=== PATIENT | female | born 2000 | race Caucasian/White ===

== ENCOUNTER 2024-06-24 07:00 | Inpatient (IN) | payer OTHER, SELFPAY ==
[2024-06-24] VITALS (18 sets, daily range): BP systolic 92–124; BP diastolic 54–81; PULSE 74–98; RESP 16; TEMP 36.1–37.2; O2SAT 95–99; BMI 37.4
--- OUTSIDE RECORDS SUMMARY | 2024-06-24 07:13 | XMS RPT_ITS | CCD ---
Author Organization [facility] Care Team Providers Care Operations And Maintenance Manager Name Role Phone PHILLIPS, IRIS K Unavailable Unavailable REFERRED, SELF Unavailable Unavailable PHILLIPS, IRIS K Unavailable Unavailable PHILLIPS, IRIS K Unavailable Unavailable REFERRED, SELF Unavailable Unavailable PHILLIPS, IRIS K Unavailable Unavailable RAEDY, MAYA Unavailable Unavailable RAEDY, MAYA Unavailable Unavailable UNKNOWN, PROVIDER Unavailable Unavailable SHAWN, HARLAN M Unavailable Unavailable RAEDY, MAYA F Unavailable Unavailable SELF, SELF Unavailable Unavailable Shawn, Harlan M Unavailable Unavailable Luecht, Supa Unavailable Unavailable Furness, Krupa Unavailable Unavailable Furness, Krupa T Unavailable Unavailable ShawnHuana M Unavailable Unavailable Furness, Krupa Unavailable Unavailable Shawn, Harlan M Unavailable Unavailable Amanuel, Rochelle Unavailable Unavailable [place], Guillermo Unavailable Unavailable SalvatoreGuillermo doll R Unavailable Unavailable Furness, Krupa T Unavailable [phone] Unavailable Unavailable [place], Dr. Krupa Godinez Primary Care Un available Lee, Dr. Keren Graham Attending Unav ailable Lee, Dr. Keren Graham Referring Unav ailable MD FLORIDA DICKINSON Referring Unavail able Furness, Dr. Krupa Godinez Primary Care Un available MD FLORIDA DICKINSON Attending Unavail able Furness, Dr. Krupa Godinez Primary Care Un available [place], Dr. Malena Thomas Attending Unavailabl e Tristen, Dr. Malena Thomas Referring Unavailabl e Furness, Dr. Krupa Godinez Primary Care Un available Tristen, Dr. Malena Thomas Attending Unavailabl e [place], Dr. Malena Thomas Referring Unavailabl e Furness, Dr. Krupa Godinez Primary Care Un available Tristen, Dr. Malena Thomas Attending Unavailabl e [place], Dr. Malena Thomas Referring Unavailabl e Furness, Dr. Krupa Godinez Primary Care Un available [place], Dr. Malena Thomas Referring Unavailabl e [place], Dr. Malena Thomas Attending Unavailabl e Furness, Dr. Krupa Godinez Primary Care Un available FRIED, CNM, CREATIVE WRITING PROFESSOR DWIGHT ENA Attending Unava ilable Furness, Dr. Krupa Godinez Referring Un available Furness, Dr. Krupa Godinez Primary Care Un available Rodriguez, Dr. Sanjuana Germain Attending Unavai lable Furness, Dr. Krupa Godinez Referring Un available Furness, Dr. Krupa Godinez Primary Care Un available Rodriguez, Dr. Sanjuana Germain Attending Unavai lable Furness, Dr. Krupa Godinez Attending Un available Furness, Dr. Krupa Godinez Referring Un available Furness, Dr. Krupa Godinez Primary Care Un available Furness, Dr. Krupa Godinez Attending Un available Furness, Dr. Krupa Godinez Referring Un available Furness, Dr. Krupa Godinez Primary Care Un available MD FLORIDA DICKINSON Referring Unavail able Furness, Dr. Krupa Godinez Primary Care Un available MD FLORIDA DICKINSON Attending Unavail able Furness, Dr. Krupa Godinez Primary Care Un available FRIED, CNM, CREATIVE WRITING PROFESSOR DWIGHT ENA Attending Unava ilable FRIED, CNM, CREATIVE WRITING PROFESSOR DWIGHT ENA Referring Unava ilable Furness Krupa ARNOLD Primary Care Provider Furness, Dr. Krupa Godinez Referring Un available Furness, Dr. Krupa Godinez Primary Care Un available Furness, Dr. Krupa Godinez Attending Un available Furness, Dr. Krupa Godinez Primary Care Un available Rodriguez, Dr. Sanjuana Germain Attending Unavai lable Rodriguez, Dr. Sanjuana Germain Referring Unavai lable Furness, Dr. Krupa Godinez Referring Un available Furness, Dr. Krupa Godinez Primary Care Un available Furness, Dr. Krupa Godinez Attending Un available Furness, Dr. Krupa Godinez Referring Un available Furness, Dr. Krupa Godinez Primary Care Un available Furness, Dr. Krupa Godinez Attending Un available Furness, Dr. Krupa Godinez Primary Care Un available Furness, Dr. Krupa Godinez Attending Un available Furness MD, Krupa T Unavailable [phone] Imani Abad DO Unavailable [phone] [place] [facility] PT-CREATIVE WRITING PROFESSORFina Unavailable FURNESS, KRUPA T Primary Care Unavailable FURNESS, KRUPA T Primary Care Unavailable IMANI ABAD Referring Unavailable FURNESS, KRUPA T Primary Care Unavailable Furness Krupa ARNOLD Unavailable Unavailable Primary Care Provider Unavailrosa e FLORIDA DICKINSON Referring Unavailable FURNESS, KRUPA T Primary Care Unavailable HAURY, CHERRY A Referring Unavailable FURNESS, KRUPA T Primary Care Unavailable HAURY, CHERRY A Referring Unavailable FURNESS, KRUPA T Primary Care Unavailable HAURY, CHERRY A Referring Unavailable FURNESS, KRUPA T Primary Care Unavailable FURNESS, KRUPA T Primary Care Unavailable SCOTT LEAL Attending Unavailable IMANI ABAD Attending Unavailable FURNESS, KRUPA T Referring Unavailable FURNESS, KRUPA T Primary Care Unavailable DWIGHT MIX Attending Unavailable FURNESS, KRUPA T Primary Care Unavailable FLORIDA DICKINSON Attending Unavailable FURNESS, KRUPA T Primary Care Unavailable [place] DICKINSON Attending Unavailable FURNESS, KRUPA T Primary Care Unavailable [place] DICKINSON Attending Unavailable FURNESS, KRUPA T Primary Care Unavailable [place] DICKINSON Attending Unavailable FURNESS, KRUPA T Primary Care Unavailable AYAKA BAXTER Attending Unavailable FURNESS, KRUPA T Primary Care Unavailable Furness , Krupa T Primary Care Provider [phone] Krupa Tran MD Unavailable SUNI MCMILLAN Attending Unavailable ALEXIS VELAZQUEZ Attending Unavailable MADONNA BARTHOLOMEW Attending Unavailable CHERRY SOLORZANO Attending Unavailable ALEXIS VELAZQUEZ Referring Unavailable CHERRY SOLORZANO Attending Unavailable MADONNA BARTHOLOMEW Referring Unavailable AJNY SCHWARZ Attending Unavail able ALEXIS VELAZQUEZ Attending Unavailable CHERRY SOLORZANO Referring Unavailable MADONNA BARTHOLOMEW Attending Unavailable CHELO PORTER Attending Unavailable ELIZABETH ALTMAN Attending Unavailable Medications Current Medications Medication Drug Class(es) Dates Sig (Normalized) Sig (Original) acetaminophen 500 mg oral tablet (2 sources) Start: 11-20-2012 acetaminophen (Tylenol Extra Strength) 500 mg tablet Take 325 mg by mouth. 0 11/20/2012 Active azithromycin 250 mg oral tablet (1 source) Macrolide Antimicrobial Start: 07-31-2023 End: 08-05-2023 azithromycin (Zithromax Z-Anatoliy) 250 mg tablet Indications: Acute bronchitis, unspecified organism Take 2 tablets (500 mg) on Day 1, followed by 1 tablet (250 mg) once daily on Days 2 through 5. 6 tablet 0 07/31/2023 08/05/2023 Active cyclobenzaprine hydrochloride 10 mg oral tablet (2 sources) Muscle Relaxant Start: 02-06-2023 End: 10-04-2023 take 1 tablet by mouth three times daily as needed for muscle spasms cyclobenzaprine (Flexeril) 10 mg tablet Indications: Acute bilateral low back pain without sciatica Take 1 tablet (10 mg) by mouth 3 times a day as needed for muscle spasms. 30 tablet 2 02/06/2023 10/04/2023 Active FERROUS SULFATE, BULK, MISC (7 sources) FERROUS SULFATE, BULK, MISC 1 tablet. Active fluticasone propionate 0.05 mg/actuat metered dose nasal spray (4 sources) Corticosteroid Start: 06-05-2024 fluticasone (FLONASE) 50 mcg/actuation nasal spray 1 [place] once daily. 06/05/2024 Active Start: 06-05-2024 take 1 spray(s) nasa l route once daily fluticasone (Flonase) 50 mcg/actuation nasal spray Indications: Dysfunction of both eustachian tubes Administer 1 spray into each nostril once daily. Shake gently. Before first use, prime pump. After use, clean tip and replace cap. 16 g 2 06/05/2024 Active iron,carb/vit C/vit B12/folic (IRON 100 PLUS ORAL) (1 source) iron,carb/vit C/ vit B12/folic (IRON 100 PLUS ORAL) Take by mouth. Active predniSONE 20 mg oral tablet (6 sources) Start: 07-31-2023 End: 08-05-2023 take 1 tablet by mouth once daily predniSONE (Deltasone) 20 mg tablet Indications: Acute bronchitis, unspecified organism Take 1 tablet (20 mg) by mouth once daily for 5 days. 5 tablet 0 07/31/2023 08/05/2023 Active Start: 11-03-2022 predniSONE 10 MG Oral Tablet 4 PO daily x 3 days, 3 daily x 3 days, 2 daily x 3 days, 1 daily x 3 days, then stop Quantity: 30 Refills: 1 Ordered: 03-Nov-2022 Krupa Tran MD Start : 03-Nov-2022 Active Start: 11-04-2019 predniSONE 10 MG Oral Tablet 3 tabs PO daily x 5 days, then 2 daily x 5 days, then 1 daily x 5 days, then stop. Quantity: 30 Refills: 1 Krupa Tran MD Start : 04-Nov-2019 Active no115/iron/folic ac id ( 19 ORAL) (1 source) no115/i axel/folic acid ( 19 ORAL) Take by mouth. Active VIT 14-IRON FUM-FOL IC ORAL (14 sources) take 1 tablet by mouth once daily VIT 14-IRON FUM-FOLIC ORAL Take 1 tablet by mouth once daily. Active take 1 tablet by mouth once irene y VIT 14-IRON FUM-FOLIC ORAL Take 1 tablet by mouth once daily. 0 Active Completed/Discontinued Medications Medication Drug Class(es) Dates Sig (Normalized) Sig (Original) aspirin 81 mg delayed release oral tablet (18 sources) Platelet Aggregation Inhibitor, Nonsteroidal Anti-inflammatory Drug Start: 07-18-2021 take 2 tablets by mouth once daily Aspirin 81 MG Oral Tablet Delayed Release TAKE 2 TABLET Daily Quantity: 60 Refills: 11 Ordered: 18-Jul-2021 Malena Mckee DO Start : 18-Jul-2021 Active doxylamine succinate 25 mg oral tablet (13 sources) Start: 06-24-2021 take 1 tablet by mouth at bedtime Unisom SleepTabs 25 MG Oral Tablet TAKE 1 TABLET AT BEDTIME. Quantity: 30 Refills: 4 Ordered: 24-Jun-2021 Malena Mckee DO Start : 24-Jun-2021 Active ferrous sulfate 325 mg oral tablet (7 sources) Start: 11-16-2021 take 1 tablet by mouth once daily Ferrous Sulfate 325 (65 Fe) MG Oral Tablet TAKE 1 TABLET DAILY DIRECTED. Quantity: 30 Refills: 10 Ordered: 16-Nov-2021 Keren Lee DO Start : 16-Nov-2021 Active fluconazole 150 mg oral tablet (1 source) Azole Antifungal Start: 02-02-2020 take 1 tablet by mouth once Fluconazole 150 MG Oral Tablet TAKE 1 TABLET 1 TIME ONLY. Quantity: 1 Refills: 2 Krupa Tran MD Start : 02-Feb-2020 Active metoclopramide 5 mg oral tablet (6 sources) Dopamine-2 Receptor Antagonist Start: 08-15-2021 take 1 tablet by mouth every six hours as needed for headache Metoclopramide HCl - 5 MG Oral Tablet 1 tablet [id number] prn headache. Quantity: 20 Refills: 3 Ordered: 15-Aug-2021 Malena Mckee DO Start : 15-Aug-2021 Active Multi-Day Vitamins TABS (3 sources) Multi-Day Vitami ns TABS Quantity: 0 Refills: 0 Ordered: 09-Jun-2022 DO Active ondansetron 4 mg oral tablet (14 sources) Serotonin-3 Receptor Antagonist Start: 09-12-2021 take 1 tablet by mouth every six hours Ondansetron HCl - 4 MG Oral Tablet TAKE 1 TABLET Every 6 hours PRN nausea Quantity: 30 Refills: 2 Ordered: 12-Sep-2021 Malena Mckee DO Start : 12-Sep-2021 Active Start: 07-11-2021 take 1 tablet by chio th every six hours Ondansetron HCl - 4 MG Oral Tablet TAKE 1 TABLET Every 6 hours PRN nausea Quantity: 30 Refills: 3 Ordered: 11-Jul-2021 Malena Mckee DO Start : 11-Jul-2021 Active Start: 04-11-2016 ondansetron OD T (Zofran-ODT) 4 mg disintegrating tablet Take 1 tablet (4 mg) by mouth. 0 04/11/2016 Active PNV Plus Multivitamin TABS (20 sources) PNV Plu s Multivitamin TABS Quantity: 0 Refills: 0 Ordered: 24-Jun-2021 DO Active rizatriptan 10 mg oral tablet (5 sources) Serotonin-1b and Serotonin-1d Receptor Agonist Start: 023 End: 024 rizatriptan (Maxalt) 10 mg tablet Indications: Migraine without aura and without status migrainosus, not intractable Take 1 tablet (10 mg) by mouth 1 time if needed for migraine (may repeat x1). May repeat in 2 hours if unresolved. Do not exceed 30 mg in 24 hours. 9 tablet 3 07/12/2023 06/05/2024 Discontinued (Therapy completed) sulfamethoxazole 800 mg / trimethoprim 160 mg oral tablet (1 source) Dihydrofolate Reductase Inhibitor Antibacterial, Sulfonamide Antimicrobial Start: take 1 tablet by mouth twice daily Sulfamethoxazole-Tr imethoprim 800-160 MG Oral Tablet TAKE 1 TABLET TWICE DAILY UNTIL FINISHED. Quantity: 10 Refills: 1 Krupa Tran MD Start : 02-Feb-2020 Active 24 hr venlafaxine 37.5 mg extended release oral capsule (5 sources) Serotonin and Norepinephrine Reuptake Inhibitor Start: 020 take 1 capsule by mouth once daily at mealtime Venlafaxine HCl ER 37.5 MG Oral Capsule Extended Release 24 Hour TAKE 1 CAPSULE ONCE DAILY WITH FOOD. Quantity: 30 Refills: 0 Krupa Tran MD Start : 04-Nov-2019 Active vitamin b6 50 mg oral tablet (20 sources) Start: 021 take 1 tablet by mouth twice daily Vitamin B-6 50 MG Oral Tablet take 1 tablet by mouth twice a day Quantity: 60 Refills: 6 Ordered: 19-Jul-2021 Malena Mckee DO Start : 19-Jul-2021 Active Problems Active Problems Problem Classification Problem Date Documented Date Episodic/Chronic Anxiety disorders (20 sources) Anxiety; Translations: [Generalized anxiety disorder] Onset: 02-01-2023 02-01-2023 Chronic Conditions associated with dizziness or vertigo (12 sources) Dizziness; Translations: [Dizziness and giddiness] Onset: 04-17-2024 04-17-2024 Episodic Esophageal disorders (5 sources) Gastroesophageal reflux disease; Translations: [Gastro-esophageal reflux disease without esophagitis] Onset: 01-10-2011 06-29-2023 Chronic Fever of unknown origin (8 sources) Fever; Translations: [Fever] Episodic Genitourinary symptoms and ill-defined conditions (18 sources) Female stress incontinence; Translations: [Stress incontinence (female) (male)] Onset: 03-20-2024 03-20-2024 Chronic Genitourinary symptoms and ill-defined conditions (4 sources) Scalding pain on urination ; Translations: [Burning with urination] Episodic Headache, including migraine (20 sources) Migraine, unspecified, not intractable, without status migrainosus; Translations: [Migraine] Onset: 03-26-2017 02-01-2023 Chronic Immunizations and screening for infectious disease (20 sources) Patient encounter status; Translations: [Other specified vaccination] Onset: 12-12-2023 04-02-2024 Episodic Influenza (10 sources) Influenza due to Influenza virus, type B; Translations: [Influenza with other respiratory manifestations] Episodic Menstrual disorders (10 sources) Secondary amenorrhea; Translations: [Absence of menstruation] Onset: 01-21-2018 06-29-2023 Chronic Nausea and vomiting (15 sources) Nausea; Translations: [Nausea alone] Episodic Other complications of ; puerperium affecting management of mother (1 source) Suspected disorder; Translations: [Maternal care for (suspected) abnormality and damage, unspecified, not applicable or unspecified] 06-20-2024 Episodic Other complications of (20 sources) Maternal obesity complicating , childbirth and the puerperium, antepartum; Translations: [Obesity complicating , second trimester] Onset: 03-20-2024 03-20-2024 Chronic Other complications of (11 sources) Anemia in mother complicating , childbirth AND/OR puerperium; Translations: [Anemia complicating , third trimester] Onset: 05-26-2024 04-17-2024 Chronic Other complications of (1 source) Obesity complicating , third trimester; Translations: [Obesity affecting in third trimester, unspecified obesity type] Onset: 04-17-2024 Chronic Other complications of (1 source) Anemia complicating , third trimester; Translations: [Anemia complicating , third trimester] Onset: 05-26-2024 Chronic Other complications of (1 source) Genuine stress incontinence; Translations: [Stress incontinence in ] 03-20-2024 Episodic Other complications of (1 source) Reduced movement; Translations: [Decreased movements, second trimester, not applicable or unspecified] 03-25-2024 Episodic Other complications of (1 source) ultrasound scan abnormal; Translations: [Abnormal ultrasonic finding on screening of mother] Onset: 06-20-2024 06-20-2024 Episodic Other complications of (1 source) Supervision of high risk , unspecified, third trimester; Translations: [Encounter for supervision of high risk in third trimester, antepartum] Onset: 06-20-2024 Episodic Other connective tissue disease (10 sources) Pain in right lower limb; Translations: [Pain in limb] Episodic Other nervous system disorders (2 sources) Other chronic pain; Translations: [Other chronic pain] Onset: 02-01-2023 Chronic Other nutritional; endocrine; and metabolic disorders (20 sources) Obesity; Translations: [Obesity, unspecified] Onset: 02-01-2023 02-01-2023 Chronic Otitis media and related conditions (20 sources) Dysfunction of eustachian tube; Translations: [Dysfunction of Eustachian tube] Onset: 02-01-2023 02-01-2023 Episodic Residual codes; unclassified (3 sources) Gestation period, 16 weeks; Translations: [ state, incidental] 02-11-2024 Episodic Residual codes; unclassified (3 sources) Gestation period, 19 weeks; Translations: [ state, incidental] Episodic Residual codes; unclassified (1 source) Gestation period, 23 weeks; Translations: [ state, incidental] Episodic Residual codes; unclassified (2 sources) Gestation period, 28 weeks; Translations: [ state, incidental] 04-02-2024 Episodic Residual codes; unclassified (3 sources) Gestation period, 32 weeks; Translations: [ state, incidental] 04-30-2024 Episodic Residual codes; unclassified (1 source) Gestation period, 35 weeks; Translations: [ state, incidental] Episodic Residual codes; unclassified (2 sources) Gestation period, 36 weeks; Translations: [ state, incidental] 05-26-2024 Episodic Residual codes; unclassified (3 sources) Gestation period, 38 weeks; Translations: [ state, incidental] 06-10-2024 Episodic Residual codes; unclassified (1 source) Gestation period, 26 weeks; Translations: [26 weeks gestation of ] 03-20-2024 Episodic Residual codes; unclassified (1 source) Gestation period, 27 weeks; Translations: [27 weeks gestation of ] 03-25-2024 Episodic Residual codes; unclassified (1 source) Gestation period, 30 weeks; Translations: [30 weeks gestation of ] 04-17-2024 Episodic Residual codes; unclassified (1 source) Gestation period, 34 weeks; Translations: [34 weeks gestation of ] 05-12-2024 Episodic Residual codes; unclassified (1 source) Gestation period, 37 weeks; Translations: [37 weeks gestation of ] 06-05-2024 Episodic Residual codes; unclassified (2 sources) Gestation period, 39 weeks; Translations: [39 weeks gestation of ] 06-17-2024 Episodic Residual codes; unclassified (1 source) 38 weeks gestation of ; Translations: [38 weeks gestation of ] Onset: 06-20-2024 Episodic Residual codes; unclassified (1 source) 34 weeks gestation of ; Translations: [34 weeks gestation of ] Onset: 05-12-2024 Episodic Residual codes; unclassified (1 source) 30 weeks gestation of ; Translations: [30 weeks gestation of ] Onset: 04-17-2024 Episodic Spondylosis; intervertebral disc disorders; other back problems (3 sources) Inflammation of sacroiliac joint; Translations: [Sacroiliitis, not elsewhere classified] Chronic Unclassified (1 source) Low back pain, unspecified; Translations: [Low back pain, unspecified] Onset: 02-01-2023 Unclassified (2 sources) Ears feel plugged Onset: 06-05-2024 Unclassified (2 sources) Gynecologic Exam; Translations: [Gynecologic Exam] Onset: 09-06-2023 Unclassified (1 source) Initial OB Visit Onset: 03-20-2024 Urinary tract infections (4 sources) Acute lower urinary tract infection; Translations: [Acute lower UTI] Episodic Past or Other Problems Problem Classification Problem Date Documented Date Episodic/Chronic Abdominal pain (13 sources) Right upper quadrant pain; Translations: [Right upper quadrant pain] Onset: 02-02-2023 02-02-2023 Episodic Acute bronchitis (3 sources) Acute bronchitis; Translations: [Acute bronchitis, unspecified] Onset: 07-31-2023 07-31-2023 Episodic Deficiency and other anemia (20 sources) Anemia; Translations: [Anemia, unspecified] Onset: 02-01-2023 02-01-2023 Episodic Headache; including migraine (5 sources) Chronic headache disorder; Translations: [Chronic headaches] Onset: 01-21-2018 06-29-2023 Episodic Malaise and fatigue (5 sources) Fatigue; Translations: [Other malaise and fatigue] Onset: 02-02-2023 02-02-2023 Episodic Mycoses (20 sources) Pityriasis versicolor; Translations: [Pityriasis versicolor] Onset: 02-01-2023 02-01-2023 Episodic Nonmalignant breast conditions (20 sources) Breast lump; Translations: [Lump or mass in breast] Onset: 05-03-2022 02-01-2023 Episodic Other complications of (20 sources) Nausea and vomiting; Translations: [Unspecified vomiting of , unspecified as to episode of care or not applicable] Onset: 02-01-2023 02-01-2023 Episodic Other complications of (15 sources) Cholestasis of ; Translations: [Liver and biliary tract disorders in , unspecified as to episode of care or not applicable] Onset: 02-01-2023 02-01-2023 Episodic Other complications of (20 sources) High risk ; Translations: [Supervision of high risk , unspecified, second trimester] Onset: 03-20-2024 03-20-2024 Episodic Other complications of (15 sources) Diseases of the digestive system complicating , second trimester; Translations: [Other current conditions classifiable elsewhere of mother, antepartum condition or complication] Onset: 03-20-2024 Resolved: 06-17-2024 03-20-2024 Episodic Other complications of (1 source) Vomiting of , unspecified; Translations: [Unspecified vomiting of , unspecified as to episode of care or not applicable] Onset: 02-01-2023 02-01-2023 Episodic Other complications of (1 source) Supervision of high risk , unspecified, second trimester; Translations: [Encounter for supervision of high risk in second trimester, antepartum] Onset: 03-20-2024 Episodic Other connective tissue disease (20 sources) H/O: arthritis; Translations: [Personal history of arthritis] Resolved: 07-18-2021 Episodic Other and delivery including normal (20 sources) Urine test positive; Translations: [ examination or test, positive result] Onset: 11-13-2023 Resolved: 06-10-2024 11-13-2023 Episodic Comment on above: 01/14/2022_38weeks 3 days_Female_7# 4oz; Other screening for suspected conditions (not mental disorders or infectious disease) (20 sources) Cancer cervix screening status; Translations: [Screening for malignant neoplasms of cervix] Onset: 08-03-2022 Episodic Other skin disorders (5 sources) Acne; Translations: [Other acne] Onset: 03-11-2013 06-29-2023 Episodic Residual codes; unclassified (20 sources) Insomnia; Translations: [Insomnia, unspecified] Onset: 02-01-2023 02-01-2023 Episodic Residual codes; unclassified (6 sources) Gestation period, 12 weeks; Translations: [ state, incidental] Onset: 12-12-2023 Episodic Residual codes; unclassified (3 sources) 12 weeks gestation of ; Translations: [12 weeks gestation of ([facility])] Onset: 12-12-2023 Episodic Residual codes; unclassified (15 sources) History of cholestasis in ; Translations: [Personal history of other complications of , childbirth and the puerperium] Onset: 03-20-2024 03-20-2024 Episodic Residual codes; unclassified (4 sources) 16 weeks gestation of ; Translations: [16 weeks gestation of ([facility])] Onset: 01-09-2024 Episodic Residual codes; unclassified (2 sources) 21 weeks gestation of ; Translations: [21 weeks gestation of ([facility])] Onset: 02-11-2024 Episodic Screening and history of mental health and substance abuse codes (19 sources) H/O: depression; Translations: [Personal history of other mental disorders] Onset: 03-20-2024 03-20-2024 Episodic Spondylosis; intervertebral disc disorders; other back problems (20 sources) Low back pain; Translations: [Lumbosacral radiculopathy] Onset: 02-01-2023 02-01-2023 Episodic Unclassified (20 sources) Finding of menstrual bleeding; Translations: [Menstruation] Comment on above: Onset age 8 years; Unclassified (5 sources) Onset: 07-12-2023 Resolved: 03-28-2024 07-12-2023 Unclassified (1 source) Low back pain, unspecified; Translations: [Low back pain, unspecified] Onset: 03-28-2024 Viral infection (2 sources) Other specified viral diseases; Translations: [Other specified viral diseases] Onset: 07-31-2023 Episodic NEGATED: Highlighted row has not occurred!Residual codes; unclassified (20 sources) Disease Episodic Results Test Name Value Interpretation Reference Range Facility Examination level ultrasound on 06-20-2024 [facility] Radiology Study observation (narrative) [facility] URINE OB DIP B/Oon 4 Glucose Ql (U) Negative Neg mg/dL [facility] Interpretation and review of laboratory results Normal [facility] Protein.monoclonal (U) [Mass/Vol] Negative Neg mg/dL [facility] URINE OB DIP B/Oon 4 Glucose Ql (U) Negative Neg mg/dL [facility] Interpretation and review of laboratory results Normal [facility] Protein.monoclonal (U) [Mass/Vol] Negative Neg mg/dL [facility] URINE OB DIP B/OOrdered By: Hannah Delgado on 06-02-2024 Glucose Ql (U) Negative Neg mg/dL [facility] Interpretation and review of laboratory results Normal [facility] Protein.monoclonal (U) [Mass/Vol] Negative Neg mg/dL [facility] ROUTINE, GROUP B ST REP PCRon 05-26-2024 ROUTINE, GROUP B STREP PCR GROUP B STREP PCR: Negative for Group B Streptococcus by PCR. Normal [facility] Comment on above: Performed By: #### 5 8410-2 #### [facility] CLIA [id number] [address] [place] [address] [place] URINE OB DIP B/Oon 4 Glucose Ql (U) Negative Neg mg/dL [facility] Interpretation and review of laboratory results Normal [facility] Protein.monoclonal (U) [Mass/Vol] Negative Neg mg/dL [facility] URINE OB DIP B/Oon 4 Glucose Ql (U) Negative Neg mg/dL [facility] Protein.monoclonal (U) [Mass/Vol] Negative Neg mg/dL [facility] Examination level ultrasound on 04-30-2024 [facility] Radiology Study observation (narrative) [facility] CNPNon 04-29-2024 CNPN Telephone (OBGYWM) -- CHERRY MOREL ([id number]) 2000 F Date Time Provider Department 04/29/24 ALEXIS VELAZQUEZ During your visit today, we recorded the following information about you: Judith Carter LPN 04/29/2024 4:21 PM Signed Patient needs to schedule 32 week growth ultrasound. Please approve order Madonna Bartholomew MD 04/29/2024 4:27 PM Signed Filed Madonna Bartholomew MD Allergies As of Date: 04/29/2024 (No Known Allergies) Date Reviewed: 04/17/2024 Reviewed by: Cherry Solorzano APRN.CREATIVE WRITING PROFESSOR - Fully Assessed Primary Visit Diagnosis:Encounter for supervision of high risk in third trimester, antepartum [O09.93] Other Visit Diagnoses:Obesity affecting in third trimester, unspecified obesity type [O99.213] Anemia complicating , third trimester [O99.013] Order(s):OBSTETRIC ULTRASOUND [facility] [[id number]] Order #: [id number]: 1 FUTURE Prescriptions as of 04/29/2024 - VIT 14-IRON FUM-FOLIC ORAL Take 1 tablet by mouth once daily. Problem List As Of Date 04/29/2024 Noted Resolved Supervision of high risk in third tri*03/20/2024 Obesity affecting in third trimester *03/20/2024 History of cholestasis during [Z87.59*03/20/2024 History of depression [Z86.59] 03/20/2024 with care elsewhere in secon*03/20/2024 Constipation during in second trimest*03/20/2024 Stress incontinence, female [N39.3] 03/20/2024 Uncertain dates, antepartum, second trimester [*03/20/2024 Dizziness [R42] 04/17/2024 Encounter Status:Closed by MORAIMA KARIMI on 04/29/24 Normal [facility] CBC panel Auto (Bld)on 04-17 Erythrocyte distribution width (RBC) [Ratio] 13.2 % 11.5 - 15.0 % [facility] Hematocrit (Bld) [Volume fraction] 32.6 % Low 36.0 - 46.0 % [facility] Hemoglobin (Bld) [Mass/Vol] 10.8 g/dL Low 11.5 - 15.5 g/dL [facility] Interpretation and review of laboratory results Abnormal [facility] MCH (RBC) [Entitic mass] 27.4 pg 26.0 - 34.0 pg [facility] MCHC (RBC) [Mass/Vol] 33.1 g/dL 30.5 - 36.0 g/dL [facility] MCV (RBC) [Entitic vol] 82.7 fL 80.0 - 100.0 fL [facility] Nucleated RBC (Bld) [#/Vol] NINF [facility] Platelet mean volume (Bld) [Entitic vol] 8.3 fL Low 9.0 - 12.7 fL [facility] Platelets (Bld) [#/Vol] 245 10*3/uL [facility] RBC (Bld) [#/Vol] 3.94 10*6/uL 3.90 - 5.2 0 m/uL [facility] WBC (Bld) [#/Vol] 10.34 10*3/uL [facility] Erythrocyte distribution width (RBC) [Ratio] 13.2 % Normal 11.5-15.0 [facility] Comment on above: Order Comment: Speci men Type: BLOOD SPECIMEN Ordering Facility: [facility] Address: [address] [place] [address] Performed By: #### 5 8410-2 #### [facility] [id number] [address] [place] [address] [place] [facility] Hematocrit (Bld) [Volume fraction] 32.6 % Low 36.0-46.0 [facility] Comment on above: Order Comment: Speci men Type: BLOOD SPECIMEN Ordering Facility: [facility] Address: [address] [place] [address] Performed By: #### 5 8410-2 #### [facility] CLIA [id number] [address] [place], [place] [address] [place] Hemoglobin (Bld) [Mass/Vol] 10.8 g/dL Low 11.5-15.5 [facility] Comment on above: Order Comment: Speci men Type: BLOOD SPECIMEN Ordering Facility: [facility] Address: [address] [place] [address] Performed By: #### 5 8410-2 #### [facility] CLIA [id number] [address] [place] [address] [place] MCH (RBC) [Entitic mass] 27.4 pg Normal 26.0-34.0 [facility] Comment on above: Order Comment: Speci men Type: BLOOD SPECIMEN Ordering Facility: [facility] Address: [address] [place] [address] Performed By: #### 5 8410-2 #### [facility] [id number] [address] [place] [address] [place] MCHC (RBC) [Mass/Vol] 33.1 g/dL Normal 30.5-36.0 [facility] Comment on above: Order Comment: Speci men Type: BLOOD SPECIMEN Ordering Facility: [facility] Address: [address] [place] [address] Performed By: #### 5 8410-2 #### [facility] [id number] [address] [place] [address] [place] MCV (RBC) [Entitic vol] 82.7 fL Normal 80.0-100.0 [facility] Comment on above: Order Comment: Speci men Type: BLOOD SPECIMEN Ordering Facility: [facility] Address: [address] [place] [address] Performed By: #### 5 8410-2 #### [facility] CLIA [id number] [address] [place] [address] [place] Nucleated RBC (Bld) [#/Vol] 10*3/uL Normal <0.01 [facility] Comment on above: Order Comment: Speci men Type: BLOOD SPECIMEN Ordering Facility: [facility] Address: [address] [place] [address] Performed By: #### 5 8410-2 #### [facility] CLIA [id number] [address] [place] [address] [place] Platelet mean volume (Bld) [Entitic vol] 8.3 fL Low 9.0-12.7 [facility] Comment on above: Order Comment: Speci men Type: BLOOD SPECIMEN Ordering Facility: [facility] Address: [address] [place], [place] [address] Performed By: #### 5 8410-2 #### [facility] CLIA [id number] [address] [place] [address] [place] Platelets (Bld) [#/Vol] 245 10*3/uL Normal 150-400 [facility] Comment on above: Order Comment: Speci men Type: BLOOD SPECIMEN Ordering Facility: [facility] Address: [address] [place] [address] Performed By: #### 5 8410-2 #### [facility] CLIA [id number] [address] [place] [address] [place] RBC (Bld) [#/Vol] 3.94 10*6/uL Normal 3.90-5.20 [facility] Comment on above: Order Comment: Speci men Type: BLOOD SPECIMEN Ordering Facility: [facility] Address: [address] [place] [address] Performed By: #### 5 8410-2 #### [facility] CLIA [id number] [address] [place] [address] [place] WBC (Bld) [#/Vol] 10.34 10*3/uL Normal 3.70-11.[address] [facility] Comment on above: Order Comment: Speci men Type: BLOOD SPECIMEN Ordering Facility: [facility] Address: [address] [place], [place] [address] Performed By: #### 5 8410-2 #### [facility] CLIA [id number] [address] [place] [address] [place] Comprehensive metabolic 2000 panelOrdered By: Ayaka Cummings on 04-17-2024 Albumin [Mass/Vol] 3.5 g/dL Low 3.9 - 4.9 g/dL [facility] ALP [Catalytic activity/Vol] 70 U/L 34 - 123 U/L [facility] ALT [Catalytic activity/Vol] 22 U/L 7 - 38 U/L [facility] Anion gap [Moles/Vol] 11 mmol/L 8 - 15 mmol/L [facility] AST [Catalytic activity/Vol] 23 U/L 13 - 35 U/L [facility] Bilirubin [Mass/Vol] 0.3 mg/dL 0.2 - 1.3 mg/dL [facility] Calcium [Mass/Vol] 9.0 mg/dL 8.5 - 10. 2 mg/dL [facility] Chloride [Moles/Vol] 102 mmol/L 98 - 107 mmol/L [facility] CO2 [Moles/Vol] 23 mmol/L 22 - 30 mmol/L [facility] Creatinine [Mass/Vol] 0.61 mg/dL 0.58 - 0.96 mg/dL [facility] GFR/1.73 sq M.predicted among non-blacks MDRD (S/P/Bld) [Vol rate/Area] 127 mL/min/{1.73_m2} - PINF [facility] Comment on above: Estimated Glomerular Filtration Rate (eGFR) is calculated using the 2020 CKD-EPI creatinine equation. This equation utilizes serum creatinine, sex, and age as parameters. The creatinine assay has traceable calibration to isotope dilution-mass spectrometry. Refer to KDIGO guidelines for clinical interpretation. In patients with unstable renal function, e.g. those with acute kidney injury, the eGFR may not accurately reflect actual GFR. Glucose [Mass/Vol] 90 mg/dL 74 - 99 mg/dL [facility] Comment on above: The [place] Diabete s Association (ADA) provides guidance for cutoff values for fasting glucose and random glucose. The ADA defines fasting as no caloric intake for at least 8 hours. Fasting plasma glucose results between 100 to 125 mg/dL indicate increased risk for diabetes (prediabetes). Fasting plasma glucose results greater than or equal to 126 mg/dL meet the criteria for diagnosis of diabetes. In the absence of unequivocal hyperglycemia, results should be confirmed by repeat testing. In a patient with classic symptoms of hyperglycemia or hyperglycemic crisis, random plasma glucose results greater than or equal to 200 mg/dL meet the criteria for diagnosis of diabetes. Reference: Standards of Medical Care in Diabetes 2016, [place] Diabetes Association. Diabetes Care. 2016.39(Suppl 1). Interpretation and review of laboratory results Abnormal [facility] Potassium [Moles/Vol] 3.6 mmol/L Low 3.7 - 5.1 mmol/L [facility] Protein [Mass/Vol] 6.5 g/dL 6.3 - 8.0 g/dL [facility] Sodium [Moles/Vol] 136 mmol/L 136 - 144 mmol/L [facility] Urea nitrogen [Mass/Vol] 6 mg/dL Low 7 - 21 mg/dL [facility] Comprehensive metabolic 2000 panelon 04-17-2024 Albumin [Mass/Vol] 3.5 g/dL Low 3.9-4.9 [facility] Comment on above: Order Comment: Edith charles Type: BLOOD SPECIMEN Ordering Facility: [facility] Address: [address] [place] [address] Performed By: #### 2 4323-8 #### [facility] CLIA [id number] [address] [place] [address] [place] ALP [Catalytic activity/Vol] 70 U/L Normal 34-123 [facility] Comment on above: Order Comment: Edith charles Type: BLOOD SPECIMEN Ordering Facility: [facility] Address: [address] [place] [address] Performed By: #### 2 4323-8 #### [facility] CLIA [id number] [address] [place] [address] [place] ALT [Catalytic activity/Vol] 22 U/L Normal 7-38 [facility] Comment on above: Order Comment: Edith charles Type: BLOOD SPECIMEN Ordering Facility: [facility] Address: [address] [place] [address] Performed By: #### 2 4323-8 #### [facility] CLIA [id number] [address] [place] [address] [place] Anion gap [Moles/Vol] 11 mmol/L Normal 8-15 [facility] Comment on above: Order Comment: Speci men Type: BLOOD SPECIMEN Ordering Facility: [facility] Address: [address] [place] [address] Performed By: #### 2 4323-8 #### [facility] CLIA [id number] [address] [place] [address] [place] AST [Catalytic activity/Vol] 23 U/L Normal 13-35 [facility] Comment on above: Order Comment: Speci men Type: BLOOD SPECIMEN Ordering Facility: [facility] Address: [address] [place] [address] Performed By: #### 2 4323-8 #### [facility] CLIA [id number] [address] [place] [address] [place] Bilirubin [Mass/Vol] 0.3 mg/dL Normal 0.2-1.3 [facility] Comment on above: Order Comment: Speci men Type: BLOOD SPECIMEN Ordering Facility: [facility] Address: [address] [place] [address] Performed By: #### 2 4323-8 #### [facility] CLIA [id number] [address] [place] [address] [place] Calcium [Mass/Vol] 9.0 mg/dL Normal 8.5-10.2 [facility] Comment on above: Order Comment: Speci men Type: BLOOD SPECIMEN Ordering Facility: [facility] Address: [address] [place] [address] Performed By: #### 2 4323-8 #### [facility] CLIA [id number] [address] [place] [address] [place] Chloride [Moles/Vol] 102 mmol/L Normal 98-107 [facility] Comment on above: Order Comment: Speci men Type: BLOOD SPECIMEN Ordering Facility: [facility] Address: [address] [place], [place] [address] Performed By: #### 2 4323-8 #### [facility] [id number] [address] [place] [address] [place] CO2 [Moles/Vol] 23 mmol/L Normal 22-30 [facility] Comment on above: Order Comment: Speci men Type: BLOOD SPECIMEN Ordering Facility: [facility] Address: [address] [place] [address] Performed By: #### 2 4323-8 #### [facility] [id number] [address] [place] [address] [place] Creatinine [Mass/Vol] 0.61 mg/dL Normal 0.58-0.96 [facility] Comment on above: Order Comment: Speci men Type: BLOOD SPECIMEN Ordering Facility: [facility] Address: [address] [place] [address] Performed By: #### 2 4323-8 #### [facility] [id number] [address] [place] [address] Creatinine and Glomerular filtration rate.predicted panel (S/P/Bld) 127 mL/min/1.73m??? Normal >=60 [facility] Comment on above: Order Comment: Speci men Type: BLOOD SPECIMEN Ordering Facility: [facility] Address: [address] [place], [place] [address] Result Comment: Deborah mated Glomerular Filtration Rate (eGFR) is calculated using the 2020 CKD-EPI creatinine equation. This equation utilizes serum creatinine, sex, and age as parameters. The creatinine assay has traceable calibration to isotope dilution-mass spectrometry. Refer to KDIGO guidelines for clinical interpretation. In patients with unstable renal function, e.g. those with acute kidney injury, the eGFR may not accurately reflect actual GFR. Performed By: #### 2 4323-8 #### [facility] CLIA [id number] [address] [place] [address] [place] Glucose [Mass/Vol] 90 mg/dL Normal 74-99 [facility] Comment on above: Order Comment: Speci men Type: BLOOD SPECIMEN Ordering Facility: [facility] Address: [address] [place], [place] [address] Result Comment: The [place] Diabetes Association (ADA) provides guidance for cutoff values for fasting glucose and random glucose. The ADA defines fasting as no caloric intake for at least 8 hours. Fasting plasma glucose results between 100 to 125 mg/dL indicate increased risk for diabetes (prediabetes). Fasting plasma glucose results greater than or equal to 126 mg/dL meet the criteria for diagnosis of diabetes. In the absence of unequivocal hyperglycemia, results should be confirmed by repeat testing. In a patient with classic symptoms of hyperglycemia or hyperglycemic crisis, random plasma glucose results greater than or equal to 200 mg/dL meet the criteria for diagnosis of diabetes. Reference: Standards of Medical Care in Diabetes 2016, [place] Diabetes Association. Diabetes Care. 2016.39(Suppl 1). Performed By: #### 2 4323-8 #### [facility] CLIA [id number] [address] [place] [address] [place] Potassium [Moles/Vol] 3.6 mmol/L Low 3.7-5.1 [facility] Comment on above: Order Comment: Speci men Type: BLOOD SPECIMEN Ordering Facility: [facility] Address: [address] [place] [address] Performed By: #### 2 4323-8 #### [facility] CLIA [id number] [address] [place] [address] [place] Protein [Mass/Vol] 6.5 g/dL Normal 6.3-8.0 [facility] Comment on above: Order Comment: Marikai men Type: BLOOD SPECIMEN Ordering Facility: [facility] Address: [address] [place], [place] [address] Performed By: #### 2 4323-8 #### [facility] CLIA [id number] [address] [place] [address] [place] Sodium [Moles/Vol] 136 mmol/L Normal 136-144 [facility] Comment on above: Order Comment: Speci men Type: BLOOD SPECIMEN Ordering Facility: [facility] Address: [address] [place] [address] Performed By: #### 2 4323-8 #### [facility] CLIA [id number] [address] [place] [address] [place] Urea nitrogen [Mass/Vol] 6 mg/dL Low 7-21 [facility] Comment on above: Order Comment: Speci men Type: BLOOD SPECIMEN Ordering Facility: [facility] Address: [address] [place] [address] Performed By: #### 2 4323-8 #### [facility] CLIA [id number] [address] [place] [address] [place] CBC W Auto Differential pane l (Bld)on 04-02-2024 Basophils (Bld) [#/Vol] 0.04 10*3/uL Normal <0.11 [facility] Comment on above: Order Comment: Speci men Type: BLOOD SPECIMEN Ordering Facility: [facility] Address: [address] [place] [address] Performed By: #### 5 7021-8 #### [facility] CLIA [id number] [address] [place] [address] [place] Basophils/100 WBC (Bld) 0.4 % Normal [facility] Comment on above: Order Comment: Speci men Type: BLOOD SPECIMEN Ordering Facility: [facility] Address: [address] [place] [address] Performed By: #### 5 7021-8 #### [facility] CLIA [id number] [address] [place] [address] [place] Differential cell count method Nom (Bld) Auto Normal [facility] Comment on above: Order Comment: Speci men Type: BLOOD SPECIMEN Ordering Facility: [facility] Address: [address] [place] [address] Performed By: #### 5 7021-8 #### [facility] CLIA [id number] [address] [place] [address] [place] Eosinophils (Bld) [#/Vol] 0.04 10*3/uL Normal <0.46 [facility] Comment on above: Order Comment: Speci men Type: BLOOD SPECIMEN Ordering Facility: [facility] Address: [address] [place] [address] Performed By: #### 5 7021-8 #### [facility] CLIA [id number] [address] [place] [address] [place] Eosinophils/100 WBC (Bld) 0.4 % Normal [facility] Comment on above: Order Comment: Speci men Type: BLOOD SPECIMEN Ordering Facility: [facility] Address: [address] [place] [address] Performed By: #### 5 7021-8 #### [facility] CLIA [id number] [address] [place] [address] [place] Erythrocyte distribution width (RBC) [Ratio] 13.4 % Normal 11.5-15.0 [facility] Comment on above: Order Comment: Speci men Type: BLOOD SPECIMEN Ordering Facility: [facility] Address: [address] [place] [address] Performed By: #### 5 7021-8 #### [facility] CLIA [id number] [address] [place] [address] [place] Hematocrit (Bld) [Volume fraction] 32.3 % Low 36.0-46.0 [facility] Comment on above: Order Comment: Speci men Type: BLOOD SPECIMEN Ordering Facility: [facility] Address: [address] [place] [address] Performed By: #### 5 7021-8 #### [facility] CLIA [id number] [address] [place] [address] [place] Hemoglobin (Bld) [Mass/Vol] 10.7 g/dL Low 11.5-15.5 [facility] Comment on above: Order Comment: Speci men Type: BLOOD SPECIMEN Ordering Facility: [facility] Address: [address] [place] [address] Performed By: #### 5 7021-8 #### [facility] CLIA [id number] [address] [place] [address] [place] Immature granulocytes (Bld) [#/Vol] 0.04 10*3/uL Normal <0.10 [facility] Comment on above: Order Comment: Speci men Type: BLOOD SPECIMEN Ordering Facility: [facility] Address: [address] [place] [address] Performed By: #### 5 7021-8 #### [facility] CLIA [id number] [address] [place] [address] [place] Immature granulocytes/100 WBC (Bld) 0.4 % Normal [facility] Comment on above: Order Comment: Speci men Type: BLOOD SPECIMEN Ordering Facility: [facility] Address: [address] [place] [address] Performed By: #### 5 7021-8 #### [facility] CLIA [id number] [address] [place] [address] [place] Lymphocytes (Bld) [#/Vol] 1.51 10*3/uL Normal 1.00-4.00 [facility] Comment on above: Order Comment: Speci men Type: BLOOD SPECIMEN Ordering Facility: [facility] Address: [address] [place] [address] Performed By: #### 5 7021-8 #### [facility] CLIA [id number] [address] [place] [address] [place] Lymphocytes/100 WBC (Bld) 14.0 % Normal [facility] Comment on above: Order Comment: Speci men Type: BLOOD SPECIMEN Ordering Facility: [facility] Address: [address] [place] [address] Performed By: #### 5 7021-8 #### [facility] CLIA [id number] [address] [place] [address] [place] MCH (RBC) [Entitic mass] 27.4 pg Normal 26.0-34.0 [facility] Comment on above: Order Comment: Speci men Type: BLOOD SPECIMEN Ordering Facility: [facility] Address: [address] [place] [address] Performed By: #### 5 7021-8 #### [facility] CLIA [id number] [address] [place] [address] [place] MCHC (RBC) [Mass/Vol] 33.1 g/dL Normal 30.5-36.0 [facility] Comment on above: Order Comment: Speci men Type: BLOOD SPECIMEN Ordering Facility: [facility] Address: [address] [place] [address] Performed By: #### 5 7021-8 #### [facility] [id number] [address] [place] [address] [place] MCV (RBC) [Entitic vol] 82.8 fL Normal 80.0-100.0 [facility] [facility] Comment on above: Order Comment: Speci men Type: BLOOD SPECIMEN Ordering Facility: [facility] Address: [address] [place] [address] Performed By: #### 5 7021-8 #### [facility] [id number] [address] [place] [address] [place] Monocytes (Bld) [#/Vol] 0.63 10*3/uL Normal <0.87 [facility] Comment on above: Order Comment: Speci men Type: BLOOD SPECIMEN Ordering Facility: [facility] Address: [address] [place], [place] [address] [address] Performed By: #### 5 7021-8 #### [facility] CLIA [id number] [address] [place] [address] [place] Monocytes/100 WBC (Bld) 5.9 % Normal [facility] Comment on above: Order Comment: Speci men Type: BLOOD SPECIMEN Ordering Facility: [facility] Address: [address] [place] [address] Performed By: #### 5 7021-8 #### [facility] CLIA [id number] [address] [place] [address] [place] Neutrophils (Bld) [#/Vol] 8.49 10*3/uL High 1.45-7.50 [facility] Comment on above: Order Comment: Speci men Type: BLOOD SPECIMEN Ordering Facility: [facility] Address: [address] [place] [address] Performed By: #### 5 7021-8 #### [facility] CLIA [id number] [address] [place] [address] [place] Neutrophils/100 WBC (Bld) 78.9 % Normal [facility] Comment on above: Order Comment: Speci men Type: BLOOD SPECIMEN Ordering Facility: [facility] Address: [address] [place] [address] Performed By: #### 5 7021-8 #### [facility] CLIA [id number] [address] [place] [address] [place] Nucleated RBC (Bld) [#/Vol] 10*3/uL Normal <0.01 [facility] Comment on above: Order Comment: Speci men Type: BLOOD SPECIMEN Ordering Facility: [facility] Address: [address] [place] [address] Performed By: #### 5 7021-8 #### [facility] CLIA [id number] [address] [place] [address] [place] Nucleated RBC/100 WBC (Bld) [Ratio] 0.0 /100 WBC Normal [facility] Comment on above: Order Comment: Speci men Type: BLOOD SPECIMEN Ordering Facility: [facility] Address: [address] [place] [address] Performed By: #### 5 7021-8 #### [facility] CLIA [id number] [address] [place] [address] [place] Platelet mean volume (Bld) [Entitic vol] 8.7 fL Low 9.0-12.7 [facility] Comment on above: Order Comment: Speci men Type: BLOOD SPECIMEN Ordering Facility: [facility] Address: [address] [place] [address] Performed By: #### 5 7021-8 #### [facility] CLIA [id number] [address] [place] [address] [place] Platelets (Bld) [#/Vol] 265 10*3/uL Normal 150-400 [facility] Comment on above: Order Comment: Speci men Type: BLOOD SPECIMEN Ordering Facility: [facility] Address: [address] [place] [address] Performed By: #### 5 7021-8 #### [facility] CLIA [id number] [address] [place] [address] [place] RBC (Bld) [#/Vol] 3.90 10*6/uL Normal 3.90-5.20 [facility] Comment on above: Order Comment: Speci men Type: BLOOD SPECIMEN Ordering Facility: [facility] Address: [address] [place] [address] Performed By: #### 5 7021-8 #### [facility] CLIA [id number] [address] [place] [address] [place] WBC (Bld) [#/Vol] 10.75 10*3/uL Normal 3.70-11.[address] [facility] Comment on above: Order Comment: Edith charles Type: BLOOD SPECIMEN Ordering Facility: [facility] Address: [address] [facility] [place] [id number] Performed By: #### 5 7021-8 #### [facility] CLIA [id number] [address] [place] [address] [place] GESTATIONAL GLUCOSE SCREEN, 1-HOUR, 50 GRAM, NON-FASTINGon 04-02-2024 Glucose [Mass/Vol] 90 mg/dL Normal 74-134 [facility] Comment on above: Order Comment: Edith charles Type: BLOOD SPECIMEN Ordering Facility: [facility] Address: [address] [place] [address] Result Comment: [facility] Congress of Obstetricians and Gynecologists (Dorian/Blas) guidelines state a gestational diabetes mellitus positive screen is made, in women not previously diagnosed with overt diabetes, when the 1 hr plasma glucose level is equal to or above 140 mg/dL. The [facility] Adhesive Bandage Making Operator and [facility] [place] recommends a 135 mg/dL cutoff. Performed By: #### 5 8410-2 #### [facility] [id number] [address] [place] [address] [place] Reagin and Treponema pallidu m IgG and IgM [Interp]on 04-02-2024 T. pallidum IgG+IgM IA Ql (S) Non-Reactive Normal Nonreactive [facility] Comment on above: Order Comment: Edith charles Type: BLOOD SPECIMEN Ordering Facility: [facility] Address: [address] [place] [address] Performed By: #### 5 8410-2 #### [facility] [id number] [address] [place] [address] [place] Reagin+T pallidum IgG+IgM Se rPl-Impon 04-02-2024 Reagin and Treponema pallidum IgG and IgM [Interp] Cannot exclude recent Treponemal infection if specimen collected within 7-10 days after appearance of suspect lesions or 2-3 weeks after an exposure. Clinical correlation is required. Normal [facility] Comment on above: Order Comment: Speci men Type: BLOOD SPECIMEN Ordering Facility: [facility] Address: [place] [address] Performed By: #### 5 8410-2 #### [facility] [id number] [address] [place] [address] [place] [facility] [place] Bacteria Ur Culton 4 Bacteria identified Cx Nom (U) ORGANISM ID: 1 50,000-<100,000 CFU/ml Normal urogenital keyshawn Normal [facility] Comment on above: Performed By: #### 5 8410-2 #### [facility] CLIA [id number] [address] [place] [address] OF [facility] CNPStacie 03-20-2024 OUMAR Telephone (OBGYWM) -- CHERRY MOREL ([id number]) 2000 F Date Time Provider Department 03/20/24 CHERRY SOLORZANO During your visit today, we recorded the following information about you: Judith Carter LPN 03/20/2024 3:05 PM Signed Ob patient was seen today and would like a consult order for pelvic floor physical therapy. [facility] [place]. Cherry Solorzano APRN.CNP 03/20/2024 3:08 PM Signed Consult placed. LANDRY Lester Annalee, LPN 03/20/2024 3:28 PM Signed Consult order faxed. Allergies As of Date: 03/20/2024 (No Known Allergies) Date Reviewed: 03/20/2024 Reviewed by: Cherry Solorzano APRN.CREATIVE WRITING PROFESSOR - Fully Assessed Reason for Visit: Orders [681] Primary Visit Diagnosis:Stress incontinence in [O99.891, N39.3] Order(s):CONSULT TO PHYSICAL THERAPY [9032] Order #: [id number]: 1 FUTURE Prescriptions as of 03/20/2024 - VIT 14-IRON FUM-FOLIC ORAL Take 1 tablet by mouth once daily. Problem List As Of Date 03/20/2024 Noted Resolved Encounter for supervision of high risk pregnanc*03/20/2024 Obesity affecting in second trimester*03/20/2024 History of cholestasis during [Z87.59*03/20/2024 History of depression [Z86.59] 03/20/2024 with care elsewhere in [facility]*03/20/2024 Constipation during in second trimest*03/20/2024 Stress incontinence, female [N39.3] 03/20/2024 Uncertain dates, antepartum, second trimester [*03/20/2024 Encounter Status:Closed by CHERRY SOLORZANO on 03/20/24 Normal [facility] US OB 14+ WEEKS ANATOMY SCAN on 02-11-2024 US OB 14+ WEEKS ANATOMY SCAN Interpreted By: Charan Mckeon, STUDY: US OB 14+ WEEKS ANATOMY SCAN; 02/11/2024 5:06 pm INDICATION: Signs/Symptoms:anatomy. COMPARISON: None. ACCESSION NUMBER(S): [id number] ORDERING CLINICIAN: FLORIDA DICKINSON TECHNIQUE: Multiple images were obtained through the pelvis. Transabdominal ultrasound was performed. FINDINGS: There is a single live intrauterine gestation in variable position. BPD 47mm, 20 weeks, 2 days HC 178mm, 20 weeks, 2 days AC 147mm, 20 weeks, 0 days FL 35mm, 21 weeks, 0 days This results in a composite gestational age of 20 weeks, 3 days, +/-10 days. The estimated date of delivery by ultrasound is 06/27/2024. By dates the fetus should be 21 weeks, 0 days, which is concordant with the ultrasound dating. There is an estimated weight of 354 g +/-53 g (19th percentile). heart rate measures 148 beats per minute. Anatomy: HEART (FOUR-CHAMBER): Seen THREE-VESSEL CORD: Seen UMBILICAL CORD INSERTION: Seen BLADDER: Seen STOMACH: Seen SPINE: Seen KIDNEYS: Seen DIAPHRAGM: Seen LATERAL VENTRICLE: Seen The placenta is and anterior position. No evidence of placenta previa is seen. The amniotic fluid volume is within normal limits. Maternal anatomy: The cervix is closed, measuring at up to 4.6 cm in length. IMPRESSION: Single live intrauterine gestation corresponding to 20 weeks, 3 days, +/-10 days. No gross anatomic abnormality is identified. Recommend continued routine follow-up imaging evaluation. MACRO: None Signed by: Charan Mckeon 02/12/2024 12:39 PM Dictation workstation: [id number] [facility] Bacteria identifiedon 2023 Bacteria identified Cx Nom (U) Test: Urine culture Specimen Source: Clean Catch/Voided Specimen Type: Urine Specimen Date: 12/12/20231112 Result Date: 12/13/20231953 Result Status: Final result Abnormal: No Resulting Lab: [facility] [address] [place] [address] CULTURE No significant growth [facility] Comment on above: Performed By: #### 6 30-4 #### HORTENCIA Moss ([id number]) [facility] ([facility]) [address] [place] [address] Blood type and Indirect anti body screen panel (Bld)on 12-12-2023 ABO group Nom (Bld) O [facility] Comment on above: Performed By: #### 3 4532-2 #### REGAN FUNG ([id number]) [facility] ([facility]) [address] [place] [address] [place] Blood group antibody screen Ql Negative [facility] Comment on above: Performed By: #### 3 4532-2 #### REGAN FUNG ([id number]) [facility] ([facility]) [address] [place] [address] [place] D Ag Ql (Bld) Positive [facility] Comment on above: Performed By: #### 3 4532-2 #### REGAN FUNG ([id number]) [facility] [address] [place] [address] C. trachomatis and N. gonorr hoeae DNA DURAN+probe Nom (Unsp spec)on 12-12-2023 C. trachomatis rRNA DURAN+probe Ql (Unsp spec) Negative Normal Negative [facility] Comment on above: Order Comment: The A PTIMA Combo 2 assay is FDA-approved NAAT using target capture for the in vitro qualitative detection and differentiation of ribosomal RNA (rRNA) for Chlamydia trachomatis and Neisseria gonorrhoeae testing on clinician-collected endocervical, PreservCyt solution liquid Pap specimens, vaginal, throat, rectal, and male urethral swab specimens; patient-collected vaginal swab specimens, and female and male urine specimens from symptomatic and asymptomatic individuals. Samples from all other sites are not validated for this method. Performed By: #### 3 6903-3 #### HORTENCIA Moss ([id number]) [facility] ([facility]) [address] [place] [address] N. gonorrhoeae DNA Probe+sig amp Ql (Unsp spec) Negative Normal Negative [facility] Comment on above: Order Comment: The A PTIMA Combo 2 assay is FDA-approved NAAT using target capture for the in vitro qualitative detection and differentiation of ribosomal RNA (rRNA) for Chlamydia trachomatis and Neisseria gonorrhoeae testing on clinician-collected endocervical, PreservCyt solution liquid Pap specimens, vaginal, throat, rectal, and male urethral swab specimens; patient-collected vaginal swab specimens, and female and male urine specimens from symptomatic and asymptomatic individuals. Samples from all other sites are not validated for this method. Performed By: #### 3 6903-3 #### HORTENCIA Moss ([id number]) [facility] ([facility]) [address] [place] [address] CBC panel Auto (Bld)on 12-11 Erythrocyte distribution width (RBC) [Ratio] 12.9 % Normal 11.5-14.5 [facility] Comment on above: Performed By: #### 5 8410-2 #### REGAN FUNG ([id number]) [facility] ([facility]) [address] [place] [address] Hematocrit (Bld) [Volume fraction] 37.6 % Normal 36.0-46.0 [facility] Comment on above: Performed By: #### 5 8410-2 #### REGAN FUNG ([id number]) [facility] ([facility]) [address] [place] [address] Hemoglobin (Bld) [Mass/Vol] 12.2 g/dL Normal 12.0-16.0 [facility] Comment on above: Performed By: #### 5 8410-2 #### REGAN FUNG ([id number]) [facility] ([facility]) [address] [place] [address] MCH (RBC) [Entitic mass] 26.3 pg Normal 26.0-34.0 [facility] Comment on above: Performed By: #### 5 8410-2 #### REGAN FUNG ([id number]) [facility] ([facility]) [address] [place] [address] MCHC (RBC) [Mass/Vol] 32.4 g/dL Normal 32.0-36.0 [facility] Comment on above: Performed By: #### 5 8410-2 #### REGAN FUNG ([id number]) [facility] ([facility]) [address] [place] [address] MCV (RBC) [Entitic vol] 81 fL Normal 80-100 [facility] Comment on above: Performed By: #### 5 8410-2 #### REGAN FUNG ([id number]) [facility] ([facility]) [address] [place] [address] Nucleated RBC/100 WBC (Bld) [Ratio] 0.0 /100 WBCs Normal 0.0-0.0 [facility] Comment on above: Performed By: #### 5 8410-2 #### REGAN FUNG ([id number]) [facility] ([facility]) [address] [place] [address] Platelets (Bld) [#/Vol] 355 x10*3/uL Normal 150-450 [facility] Comment on above: Performed By: #### 5 8410-2 #### REGAN FUNG ([id number]) [facility] ([facility]) [address] [place] [address] RBC (Bld) [#/Vol] 4.64 x10*6/uL Normal 4.00-5.20 [facility] Comment on above: Performed By: #### 5 8410-2 #### REGAN MIKAELXIMENA ([id number]) [facility] ([facility]) [facility] [place] [address] WBC (Bld) [#/Vol] 8.9 x10*3/uL Normal 4.4-11.3 [facility] Comment on above: Performed By: #### 5 8410-2 #### REGAN FUNG ([id number]) [facility] ([facility]) [address] [place] [address] Cervical AND or Vaginal cyto logy studyon 12-12-2023 Cytology Cervical or vaginal smear or scraping study Pathology report.total SEE COMMENT Gynecologic Cytology Case: [id number] Authorizing Provider: Florida Dickinson MD Collected: 12/12/2023 1113 Ordering Location: [facility] Received: 12/12/2023 1114 Office Building First Screen: GIAN Bonner Rescreen: GIAN Rajan Specimen: ThinPrep Liquid-Based Pap-Imaging System Screen, CERVIX, SCREENING Cytology study comment SEE COMMENT A. THINPREP PAP CERVIX, SCREENING - Specimen Adequacy Satisfactory for evaluation; endocervical/transformatio n zone component is present General Categorization Negative for intraepithelial lesion or malignancy. Descriptive Interpretation Negative for intraepithelial lesion or malignancy Specimen does not meet the requisition-stated criteria for HPV testing. See Pap test interpretation above. Laboratory comment SEE COMMENT Slide(s) initially screened by GIAN OLIVAS at [facility] [address] [facility] [id number] QC review performed by GIAN Rajan at [facility] [facility] [address] By the signature on this report, the individual or group listed as making the Final Interpretation/Diagnosis certifies that they have reviewed this case. This specimen has been analyzed by the ThinPrep Imaging System ([employer] an automated imaging and review system, which assists the laboratory in evaluating cells on ThinPrep Pap tests. Following automated imaging, selected michaels from every slide were reviewed by a under baster and/or pathologist. Cervical cytology is a screening procedure primarily for squamous cancers and precursors and has associated false-negative and false-positives results as evidenced by published data. Your patient's test should be interpreted in this context, together with the patient's history and clinical findings. Regular sampling and follow-up of unexplained clinical signs and symptoms are recommended to minimize false negative results. LAB AP HPV HR Reflex if ASCUS only LAB AP HPV GENOTYPE QUESTION Yes Date last menstrual period 09/17/2023 Menstrual History Normal [facility] HIV 1+2 Ab+HIV1 p24 Agon HIV 1+2 Ab+HIV1 p24 Ag IA Ql Non-Reactive Normal Nonreactive [facility] Comment on above: Order Comment: HIV A g/Ab screen is performed using the Siemens Hammerhead Navigation HIV Ag/Ab Combo assay which detects the presence of HIV p24 antigen as well as antibodies to HIV-1 (Group M and O) and HIV-2. No laboratory evidence of HIV infection. If acute HIV infection is suspected, consider testing for HIV RNA by PCR (viral load). Performed By: #### 5 6888-1 #### HORTENCIA Moss ([id number]) [facility] ([facility]) [address] [place] [address] Hepatitis B virus surface Ag on 12-12-2023 HBV surface Ag IA Ql Non-Reactive Normal Nonreactive [facility] Comment on above: Result Comment: Biot in interference may cause falsely decreased results. Patients taking a Biotin dose of up to 5 mg/day should refrain from taking Biotin for 24 hours before sample collection. Providers may contact their local laboratory for further information. Performed By: #### 5 196-1 #### HORTENCIA Moss ([id number]) [facility] ([facility]) [address] [place] [address] REFLEX ADDED, ANEMIA PANELon 12-12-2023 REFLEX ADDED, ANEMIA PANEL No reflex. [facility] Comment on above: Performed By: #### A PRFX #### HORTENCIA Moss ([id number]) [facility] ([facility]) [address] [place], [place] [address] Rubella virus IgG IA Qnon Rubella virus IgG IA Ql Negative Normal Negative [facility] Comment on above: Order Comment: NEGAT KURT: No IgG antibodies specific to Rubella detected. It is likely that the patient has not had a previous exposure to Rubella through infection or vaccination. Alternatively, the patient may have been exposed to Rubella but a failure to respond may indicate immunodeficiency. EQUIVOCAL: Equivocal results; obtain an additional sample for re-testing POSITIVE: IgG antibody to Rubella detected. This may indicate that the patient was exposed to Rubella through infection or vaccination. Performed By: #### 5 334-8 #### HORTENCIA Moss ([id number]) [facility] ([facility]) [address] [place] [address] Rubella virus IgG Qn (S) 0.6 IA Normal <=0.7 IA [facility] Comment on above: Order Comment: NEGAT KURT: No IgG antibodies specific to Rubella detected. It is likely that the patient has not had a previous exposure to Rubella through infection or vaccination. Alternatively, the patient may have been exposed to Rubella but a failure to respond may indicate immunodeficiency. EQUIVOCAL: Equivocal results; obtain an additional sample for re-testing POSITIVE: IgG antibody to Rubella detected. This may indicate that the patient was exposed to Rubella through infection or vaccination. Performed By: #### 5 334-8 #### HORTENCIA Moss ([id number]) [facility] ([facility]) [address] [place], [place] [address] Treponema pallidum Ab.IgG+Ig Mon 12-12-2023 T. pallidum IgG+IgM IA Ql (S) Non-Reactive Normal Nonreactive [facility] Comment on above: Result Comment: No s ignificant level of Treponema pallidum antibody detected. Repeat testing in 2 to 4 weeks may be considered if early infection or incubating syphilis infection is suspected. Performed By: #### 4 7236-5 #### HORTENCIA Moss ([id number]) [facility] ([facility]) [address] [place], [place] [address] HCG ( test) Ql (U)o n 11-13-2023 Interpretation and review of laboratory results Abnormal [facility] Work Phone: Preg Test, Ur Positive Abnormal Negative [facility] Work Phone: [facility] Work Phone: US Pelvis transvaginalon CRL 10.8 mm [facility] Work Phone: Comment on above: Live intrauterine pr egnancy at 7 weeks 1 day gestation. Live intrauterine at 7 weeks 1 day gestation. [facility] Work Phone: [facility] Work Phone: Radiology Study observation (narrative) [facility] Work Phone: Autonomic TestingOrdered By: Keyla Ko on 07-25-2023 [facility] BILIARY WITH EF W OR W/O CCK on 02-23-2023 BILIARY WITH EF W OR W/O CCK Patient Name: CHERRY MOREL STUDY: BILIARY WITH EF W OR W/O CCK; 02/23/2023 12:35 pm INDICATION: RUQ abdm pain with eating. Right upper quadrant abdominal pain COMPARISON: None. ACCESSION NUMBER(S): [id number] ORDERING CLINICIAN: KRUPA TRAN TECHNIQUE: DIVISION OF NUCLEAR MEDICINE HEPATOBILIARY SCAN (HIDA), QUANTITATIVE The patient received an intravenous dose of 5.5 mCi of Tc-99m mebrofenin (Choletec). Sequential images of the upper abdomen were then acquired over the next 60 minutes. An intravenous infusion of the cholecystokinin (CCK) analogue, Sincalide, was then administered followed by an additional period of imaging. Computer quantification of gallbladder emptying was also performed FINDINGS: There is prompt accumulation of activity within the liver and normal subsequent excretion via the biliary ductal system into the small bowel. The gallbladder visualizes promptly after radiopharmaceutical injection and progressively fills. After Sincalide administration, there is prompt contraction of the gallbladder with further anterograde transit of activity into the small bowel. The gallbladder ejection fraction is calculated to be 83 % (normal above 38%). IMPRESSION: Normal hepatobiliary imaging with no sign of cystic duct obstruction or biliary dyskinesia. Images were interpreted at [facility]. Electronically signed by: MAC BAXTER MD [facility] US GALLBLADDERon 02-05-2023 US GALLBLADDER Patient Name: CHERRY MOREL STUDY: US GALLBLADDER; 02/05/2023 2:15 pm INDICATION: RUQ pain. COMPARISON: None. ACCESSION NUMBER(S): [id number] ORDERING CLINICIAN: KRUPA TRAN TECHNIQUE: Multiple grayscale ultrasonographic images were obtained through the right upper quadrant. FINDINGS: LIVER: The liver is grossly unremarkable in appearance, without evidence of focal masses. GALLBLADDER: The gallbladder is nondilated without evidence of gallstones, wall thickening or pericholecystic fluid. No ultrasonographic Govea's sign was elicited. The gallbladder wall thickness is 2.2 mm. BILIARY TREE: There is no significant intra or extrahepatic biliary dilatation present, with the common bile duct measuring 3.9 mm PANCREAS: The visualized portions of the pancreas are within normal limits, without evidence of focal masses. The tail is obscured by gas RIGHT KIDNEY: Screening evaluation of the right kidney demonstrates no evidence of hydronephrosis. IMPRESSION: Normal ultrasound of the right quadrant. No gallstones. Electronically signed by: KAREN XIAO MD [facility]Con 02-02-2023 Erythrocyte distribution width (RBC) [Ratio] 12.8 % Normal 11.5 - 14.5 [facility] Comment on above: Performed By: #### C BC #### [address] [address] Hematocrit (Bld) [Volume fraction] 38.7 % Normal 36.0 - 46.0 [facility] Comment on above: Performed By: #### C BC #### [address] [address] Hemoglobin (Bld) [Mass/Vol] 12.1 g/dL Normal 12.0 - 16.0 [facility] Comment on above: Performed By: #### C BC #### [address] [address] MCHC (RBC) [Mass/Vol] 31.3 g/dL Low 32.0 - 36.0 [facility] Comment on above: Performed By: #### C BC #### [address] [address] MCV (RBC) [Entitic vol] 85 fL Normal 80 - 100 [facility] Comment on above: Performed By: #### C BC #### [address] [address] Platelets (Bld) [#/Vol] 355 10*3/uL Normal 150 - 450 [facility] Comment on above: Performed By: #### C BC #### [place] [id number] RBC 4.58 x10E12/L Normal 4.00 - 5.20 [facility] Comment on above: Performed By: #### C BC #### [place] [id number] WBC (Bld) [#/Vol] 6.8 10*3/uL Normal 4.4 - 11.3 [facility] Comment on above: Performed By: #### C BC #### [place] [address] COMPREHENSIVE PANELon 2022 Albumin [Mass/Vol] 4.3 g/dL Normal 3.4 - 5.0 [facility] Comment on above: Performed By: #### C MP #### [address] [address] ALP [Catalytic activity/Vol] 55 U/L Normal 33 - 110 [facility] Comment on above: Performed By: #### C MP #### [address] [address] ALT [Catalytic activity/Vol] 11 U/L Normal 7 - 45 [facility] Comment on above: Result Comment: Marcia ents treated with Sulfasalazine may generate falsely decreased results for ALT. Performed By: #### C MP #### [address] [address] Anion gap [Moles/Vol] 11 mmol/L Normal 10 - 20 [facility] Comment on above: Performed By: #### C MP #### [address] [address] AST [Catalytic activity/Vol] 17 U/L Normal 9 - 39 [facility] Comment on above: Performed By: #### C MP #### [address] [address] Bilirubin [Mass/Vol] 0.5 mg/dL Normal 0.0 - 1.2 [facility] Comment on above: Performed By: #### C MP #### [address] [address] Calcium [Mass/Vol] 9.6 mg/dL Normal 8.6 - 10.3 [facility] Comment on above: Performed By: #### C MP #### [address] [address] Chloride [Moles/Vol] 105 mmol/L Normal 98 - 107 [facility] Comment on above: Performed By: #### C MP #### [address] [address] Creatinine [Mass/Vol] 0.61 mg/dL Normal 0.50 - 1.05 [facility] Comment on above: Performed By: #### C MP #### [address] [address] eGFR FEMALE >90 Normal >90 [facility] Comment on above: Result Comment: CALC ULATIONS OF ESTIMATED GFR ARE PERFORMED USING THE 2020 CKD-EPI STUDY REFIT EQUATION WITHOUT THE RACE VARIABLE FOR THE IDMS-TRACEABLE CREATININE METHODS. https://jasn.asnjournals.org/content/early//ASN.808386971 8 Performed By: #### C MP #### [address] [address] Glucose [Mass/Vol] 90 mg/dL Normal 74 - 99 [facility] Comment on above: Performed By: #### C MP #### [address] [address] HCO3 (Bld) [Moles/Vol] 30 mmol/L Normal 21 - 32 [facility] Comment on above: Performed By: #### C MP #### [place] [address] Potassium [Moles/Vol] 4.5 mmol/L Normal 3.5 - 5.3 [facility] Comment on above: Performed By: #### C MP #### [place] [address] Protein [Mass/Vol] 6.7 g/dL Normal 6.4 - 8.2 [facility] Comment on above: Performed By: #### C MP #### [place] [address] Sodium [Moles/Vol] 141 mmol/L Normal 136 - 145 [facility] Comment on above: Performed By: #### C MP #### [place] [address] Urea nitrogen [Mass/Vol] 18 mg/dL Normal 6 - 23 [facility] Comment on above: Performed By: #### C MP #### [place] [address] Lab Specimen Source Normal [facility] Comment on above: Performed By: #### C MP #### [place] [address] Performed By: #### L IPAS #### [place] [address] Performed By: #### C BC #### [place] [address] Performed By: #### T SH2 #### [place] [address] LIPASEon 02-02-2023 Lipase [Catalytic activity/Vol] 11 U/L Normal 9 - 82 [facility] Comment on above: Result Comment: Wanda puncture immediately after or during the administration of Metamizole may lead to falsely low results. Testing should be performed immediately prior to Metamizole dosing. Performed By: #### L IPAS #### [place] [id number] TSHon 02-02-2023 TSH Qn 0.87 m[IU]/L Normal 0.44 - 3.98 [facility] Comment on above: Result Comment: TSH testing is performed using different testing methodology at [facility] than at other [facility]. Direct result comparisons should only be made within the same method. Performed By: #### T SH2 #### [facility] [address] [place] [address] Office Visit (Primary Care T xt/Forms)on 11-03-2022 Follow-up visit Diagnoses/Problems Assessed Lower back pain (724.2) (M54.50) Orders Lower back pain Start: predniSONE 10 MG Oral Tablet; 4 PO daily x 3 days, 3 daily x 3 days, 2 daily x 3 days, 1 daily x 3 days, then stop Chief Complaint LOWER BACK PAIN History of Present Illness Still with low back pain, but now she is having more troubles in the right hip. Chiropractor was worried about a hernia. On exam no lymphadenopathy in the right groin area no hernia. Do worry that maybe the lower back pain in the upper part of the low back is causing troubles not just her L4-L5 area. Prednisone taper motrin prn con't chiro Review of Systems Musculoskeletal: back pain and limb pain, but no localized joint pain and no joint stiffness. Integumentary: no rashes. Neurological: no numbness or tingling. Active Problems Problems Anemia (285.9) (D64.9) Anxiety (300.00) (F41.9) Breast lump in female (611.72) (N63.0) Complex cyst of breast (610.0) (N60.09) Contraceptive management (V25.9) (Z30.9) Dysfunction of both eustachian tubes (381.81) (H69.83) Encounter for immunization (V03.89) (Z23) Generalized anxiety disorder (300.02) (F41.1) Insomnia (780.52) (G47.00) Intrahepatic cholestasis of (646.70,576.8) (O26.619,K83.1) Lower back pain (724.2) (M54.50) Lumbosacral radiculopathy (724.4) (M54.17) Migraines (346.90) (G43.909) Nausea and vomiting in (643.90) (O21.9) Obesity (278.00) (E66.9) follow-up (V24.2) (Z39.2) Screening for breast cancer (V76.10) (Z12.39) Screening for cervical cancer (V76.2) (Z12.4) Screening for STDs (sexually transmitted diseases) (V74.5) (Z11.3) Tinea versicolor (111.0) (B36.0) Women's annual routine gynecological examination (V72.31) (Z01.419) Past Medical History Problems History of depression (V11.8) (Z86.59) History of inflammation of sacroiliac joint (V13.4) (Z87.39) History of Menstruation History of NVD (normal vaginal delivery) (650) (O80) History of Pap test, as part of routine gynecological examination (V76.2) (Z01.419) Surgical History Problems History of Breast biopsy excisional History of Intra-articular corticosteroid injection History of Intrauterine device placement History of Knee surgery History of [place] tooth extraction Family History Mother Family history of anemia (V18.2) (Z83.2) Family history of hypertension (V17.49) (Z82.49) Family history of migraine headaches (V17.2) (Z82.0) Father Family history of hypertension (V17.49) (Z82.49) Sister Family history of migraine headaches (V17.2) (Z82.0) Family history of thyroid disease (V18.19) (Z83.49) Family history of POTS (postural orthostatic tachycardia syndrome) Grandparent Family history of lung cancer (V16.1) (Z80.1) Grandmother Family history of hypertension (V17.49) (Z82.49) Grandfather Family history of hypertension (V17.49) (Z82.49) Paternal Grandfather Family history of cerebrovascular accident (CVA) (V17.1) (Z82.3) Social History Problems Denies alcohol consumption (V49.89) (Z78.9) Does not use illicit drugs (V49.89) (Z78.9) Never chewed tobacco (V49.89) (Z78.9) No advance directives (V49.89) (Z78.9) Sexually active Current Meds Medication NameInstruction Multi-Day Vitamins TABS Allergies Medication No Known Drug Allergies Vitals Vital Signs Recorded: 03Nov2022 11:11AM Heart Rate: 72 Systolic: 128 Diastolic: 68 Height: 5 ft 7 in Weight: 213 lb 6 oz BMI Calculated: 33.42 kg/m2 BSA Calculated: 2.08 Tobacco Use: b) No PHQ-2 #1. Over the last 2 weeks have you felt down, depressed or hopeless? (If yes, answer PHQ-9 below): No PHQ-2 #2. Over the last 2 weeks have you felt little interest or pleasure in doing things? (If yes, answer PHQ-9 below): No Falls Screening (Age 18+): a) No falls within the last year O2 Saturation: 97 Physical Exam General: Alert and oriented, No acute distress. Ambulation status: With steady gait. Appearance: Well nourished, Calm. Behavior: Cooperative. Integumentary: Warm, Dry, Nicholls, Intact. Psychiatric: Cooperative, Appropriate mood AND affect, Normal judgment. Mild tenderness to palpation to the low back, no hernia or lymphadenopathy in the right groin. Signatures Electronically signed by : Krupa Tran MD; Nov 03 2022 12:20PM EST (Author) Normal [facility] Tobacco Screening.on 023 Adult depression screening assessment No [facility] Work Phone: Fall risk assessment a) No falls within the last year [facility] Work Phone: Tobacco use status [facility] b) No [employer] [facility] Work Phone: LMPon 08-03-2022 Last menstrual period start date 03Aug2022 [facility] [address] Work Phone: ACTIVITIES COORDINATOR - Office Visiton ACTIVITIES COORDINATOR - Office Visit Diagnoses/Problems Health Maintenance/Risks Encounter for preventive health examination (V70.0) (Z00.00) Assessed Screening for cervical cancer (V76.2) (Z12.4) Orders PAP MARBLE INSTALLER, Cytology; Status:Hold For - Specimen/Data Collection,Retrospective Authorization; Requested for:03Aug2022; Last Menstrual Period (LMP): : 08/03/2022 PAP - Site : CERVICAL Cytology Order : ThinPrep PAP, Screening, HPV Reflex - Include Genotyping Provider Impressions Pap obtained RTO 1 year and PRN Chief Complaint PT IS HERE TODAY FOR HER ANNUAL EXAM. LAST PAP WAS 06/02/2022, NIL. HAS NO CONCERNS. DOES A SELF BREAST CHECK. LMP: 08/03/2022 History of Present IllnessPt. presents for annual exam Hx of normal paps, last pap 2019 has 1st grader, kindergartener, and 6 month old. Declines contraceptive conversation Denies any c/o or concerns PCP following R breast fibroadenoma, has next u/s in 6 mos. and having monthly bleeding Review of Systems Constitutional: no fever and no chills. Active Problems Problems Anemia (285.9) (D64.9) Anxiety (300.00) (F41.9) Breast lump in female (611.72) (N63.0) Complex cyst of breast (610.0) (N60.09) Contraceptive management (V25.9) (Z30.9) Dysfunction of both eustachian tubes (381.81) (H69.83) Encounter for immunization (V03.89) (Z23) Generalized anxiety disorder (300.02) (F41.1) Insomnia (780.52) (G47.00) Intrahepatic cholestasis of (646.70,576.8) (O26.619,K83.1) Lower back pain (724.2) (M54.50) Lumbosacral radiculopathy (724.4) (M54.17) Migraines (346.90) (G43.909) Nausea and vomiting in (643.90) (O21.9) Obesity (278.00) (E66.9) follow-up (V24.2) (Z39.2) Screening for breast cancer (V76.10) (Z12.39) Screening for cervical cancer (V76.2) (Z12.4) Screening for STDs (sexually transmitted diseases) (V74.5) (Z11.3) Tinea versicolor (111.0) (B36.0) Women's annual routine gynecological examination (V72.31) (Z01.419) Past Medical History Problems History of depression (V11.8) (Z86.59) History of inflammation of sacroiliac joint (V13.4) (Z87.39) Resolved Date: 18 Jul 2021 History of Menstruation Onset age 8 years History of NVD (normal vaginal delivery) (650) (O80) 01/14/2022_38weeks 3days_Female_7# 4oz History of Pap test, as part of routine gynecological examination (V76.2) (Z01.419) 06/02/2019: NIL Surgical History Problems History of Breast biopsy excisional History of Intra-articular corticosteroid injection Managed By: Ashlyn Love (Pain Medicine) Rt SIJ History of Intrauterine device placement 04/03/2018 History of Knee surgery History of [place] tooth extraction Family History Mother Family history of anemia (V18.2) (Z83.2) Family history of hypertension (V17.49) (Z82.49) Family history of migraine headaches (V17.2) (Z82.0) Father Family history of hypertension (V17.49) (Z82.49) Sister Family history of migraine headaches (V17.2) (Z82.0) Family history of thyroid disease (V18.19) (Z83.49) Family history of POTS (postural orthostatic tachycardia syndrome) Grandparent Family history of lung cancer (V16.1) (Z80.1) Grandmother Family history of hypertension (V17.49) (Z82.49) Grandfather Family history of hypertension (V17.49) (Z82.49) Paternal Grandfather Family history of cerebrovascular accident (CVA) (V17.1) (Z82.3) Social History Problems Denies alcohol consumption (V49.89) (Z78.9) Does not use illicit drugs (V49.89) (Z78.9) Never chewed tobacco (V49.89) (Z78.9) No advance directives (V49.89) (Z78.9) Sexually active Allergies Medication No Known Drug Allergies Recorded By: Akosua Palencia; 09/29/2019 2:03:23 PM Current Meds Medication NameInstruction Multi-Day Vitamins TABS Vitals Vital Signs Recorded: 03Aug2022 09:21AM [id number] Joomrkorc95 Height5 ft 7 in Kpxros450 lb 6 oz BMI Jpbityltgu97.67 kg/m2 BSA Calculated2.11 [id number] Physical Exam Constitutional: Alert and in no acute distress. Well developed, well nourished Pulmonary: No respiratory distress Genitourinary: external genitalia: normal and sexual maturation: normal Vagina: normal. Cervix: Normal. a Pap smear was performed. Psychiatric: alert and oriented x 3., affect normal to patient baseline, mood: appropriate and judgment and insight: intact Signatures Electronically signed by : Dwight Mix APRN-KOFFI BARKER-CREATIVE WRITING PROFESSOR; Aug 03 2022 9:50AM EST (Author) Normal [facility] Follow Up (General Surgery)o n 06-23-2022 Follow Up (General Surgery) Diagnoses/Problems Breast lump in female (611.72) (N63.0) Orders Breast lump in female Follow-up visit in 6 months Outpatient Follow-up Status: Hold For - Scheduling Requested for: 23Jun2022 Ordered Stat;For: Breast lump in female; Ordered By: Sanjuana Rodriguez Performed: Due: 21Sep2022 Provider Impressions Since it is unchanged she would like to continue to watch this. If it is just she will call the office for further evaluation. She does not want to look to excision until she is stopped nursing. We did discuss the alternative of doing an ultrasound in 6 months which she would like to pursue. Chief Complaint Follow up after testing. US 06/14/2022 cat 2. Pt denies change in size and breast pain. C/o mild tenderness in the right breast, but states it's when she is . History of Present IllnessPatient returns after ultrasound. I shared with her the results. She states her breasts have been more tender but the infant has been ill and not nursing as much. She denies any change in the size. Review of Systems Denies any change Active Problems Anemia (285.9) (D64.9) Anxiety (300.00) (F41.9) Breast lump in female (611.72) (N63.0) Complex cyst of breast (610.0) (N60.09) Contraceptive management (V25.9) (Z30.9) Dysfunction of both eustachian tubes (381.81) (H69.83) Encounter for immunization (V03.89) (Z23) Generalized anxiety disorder (300.02) (F41.1) Insomnia (780.52) (G47.00) Intrahepatic cholestasis of (646.70,576.8) (O26.619,K83.1) Lower back pain (724.2) (M54.50) Lumbosacral radiculopathy (724.4) (M54.17) Migraines (346.90) (G43.909) Nausea and vomiting in (643.90) (O21.9) Obesity (278.00) (E66.9) follow-up (V24.2) (Z39.2) Screening for breast cancer (V76.10) (Z12.39) Screening for cervical cancer (V76.2) (Z12.4) Screening for STDs (sexually transmitted diseases) (V74.5) (Z11.3) Tinea versicolor (111.0) (B36.0) Women's annual routine gynecological examination (V72.31) (Z01.419) Past Medical History History of depression (V11.8) (Z86.59) History of inflammation of sacroiliac joint (V13.4) (Z87.39) Resolved Date: 18 Jul 2021 History of Menstruation Onset age 8 years History of NVD (normal vaginal delivery) (650) (O80) 01/14/2022_38weeks 3days_Female_7# 4oz History of Pap test, as part of routine gynecological examination (V76.2) (Z01.419) 06/02/2019: NIL Surgical History History of Breast biopsy excisional History of Intra-articular corticosteroid injection Managed By: Ashlyn Love (Pain Medicine) Rt SIJ History of Intrauterine device placement 04/03/2018 History of Knee surgery History of [place] tooth extraction Family History Family history of anemia (V18.2) (Z83.2) Family history of hypertension (V17.49) (Z82.49) Family history of migraine headaches (V17.2) (Z82.0) Family history of hypertension (V17.49) (Z82.49) Family history of migraine headaches (V17.2) (Z82.0) Family history of thyroid disease (V18.19) (Z83.49) Family history of POTS (postural orthostatic tachycardia syndrome) Family history of lung cancer (V16.1) (Z80.1) Family history of hypertension (V17.49) (Z82.49) Family history of hypertension (V17.49) (Z82.49) Family history of cerebrovascular accident (CVA) (V17.1) (Z82.3) Social History Denies alcohol consumption (V49.89) (Z78.9) Does not use illicit drugs (V49.89) (Z78.9) Never chewed tobacco (V49.89) (Z78.9) No advance directives (V49.89) (Z78.9) Sexually active Allergies No Known Drug Allergies Recorded By: Akosua Palencia; 09/29/2019 2:03:23 PM Current Meds Medication NameInstruction Multi-Day Vitamins TABS Vitals Vital Signs Recorded: 23Jun2022 02:42PM Heart Rate72 Uqwdaoym984 Rautxtwic56 Tobacco Useb) No Falls Screening (Age 18+)a) No falls within the last year Physical Exam Constitutional - General appearance: In no acute distress, well appearing and well nourished. Pulmonary - Respiratory effort: Normal respiration. Cardiovascular - Regular rate. Musculoskeletal - No edema. Neurologic - Nonfocal. Results/Data Ultrasound Limited [id number] 02:30PMSanjuana Rodriguez Test NameResultFlagReference Mamm Breast Ultrasound(Report) FINAL REPORT Interpreted by: CHARAN MCKEON CHRISTOPHER, MD 06/15/22 09:18 Patient Name: CHERRY MOREL STUDY: BREAST ULTRASOUND; 06/14/2022 2:30 pm INDICATION: left breast lump N63.0: Breast lump in female; left breast lump 05/03/2022 mammogram N63.0: Breast lump in female. COMPARISON: None. ACCESSION NUMBER(S): [id number]; [id number] ORDERING CLINICIAN: SANJUANA RODRIGUEZ TECHNIQUE: Multiple grayscale ultrasonographic images were obtained through the bilateral breasts in the region s of palpable abnormality. FINDINGS: In the 8 o'clock position of the right breast, approximately 6 cm from the nipple a heterogeneous mass with multiple cystic foci is again seen, measuring at up to 4.0 x 2.3 x 2.7 cm, grossly similar in (more content not included)... Normal [facility] Tobacco Screening.on 022 Fall risk assessment a) No falls within the last year [facility] Work Phone: Tobacco use status CP b) No [facility] Work Phone: ULTRASOUND LIMITED BREASTon 06-14-2022 ULTRASOUND LIMITED BREAST Patient Name: CHERRY MOREL STUDY: BREAST ULTRASOUND; 06/14/2022 2:30 pm INDICATION: left breast lump N63.0: Breast lump in female; left breast lump 05/03/2022 mammogram N63.0: Breast lump in female. COMPARISON: None. ACCESSION NUMBER(S): [id number]; [id number] ORDERING CLINICIAN: SANJUANA RODRIGUEZ TECHNIQUE: Multiple grayscale ultrasonographic images were obtained through the bilateral breasts in the region s of palpable abnormality. FINDINGS: In the 8 o'clock position of the right breast, approximately 6 cm from the nipple a heterogeneous mass with multiple cystic foci is again seen, measuring at up to 4.0 x 2.3 x 2.7 cm, grossly similar in size and appearance to the prior study. A biopsy clip is seen within this mass. No discrete mass or asymmetry is identified within the left breast in the region of palpable abnormality. IMPRESSION: Grossly unchanged appearance of heterogeneous mass in the right breast, as above. No ultrasonographic evidence of malignancy in either breast. BI-RADS CATEGORY: Category: 2 - Benign. Recommendation: 1 Year Screening. Electronically signed by: CHARAN MCKEON MD Normal [facility] Ultrasound Limited [place] 06-14-2022 MG Breast Screening Normal [facility] Work Phone: Initial Visit (General Surge ry)on 06-09-2022 Initial Visit (General Surgery) Diagnoses/Problems Breast lump in female (611.72) (N63.0) Orders Breast lump in female Ultrasound Limited Breast; Status:Active; Requested for:14Jun2022; Perform: Radiology Services Imaging; Order Comments:Right breast;Ordered; For:Breast lump in female; Ordered By:Sanjuana Rodriguez; Radiologist to Determine Optimal Study : Y What are the patient's signs and symptoms? : left breast lump Follow-Up After Testing Management Follow-up Status: Active - Perform Order Requested for: 09Jun2022 Ordered;For: Breast lump in female; Ordered By: Sanjuana Rodriguez Performed: Due: 07Sep2022 Ultrasound Limited Breast; Status:Active; Requested for:14Jun2022; Perform: Radiology Services Imaging; Order Comments:LEFT;Ordered; For:Breast lump in female; Ordered By:Sanjuana Rodriguez; Radiologist to Determine Optimal Study : Y What are the patient's signs and symptoms? : left breast lump Provider Impressions I have reassured her that these are most likely fibroadenomas. We discussed the fact the pathology results could be secondary to her lactating. Since I feel 2 additional left breast masses we will ultrasound these and do a follow-up ultrasound on the right. We discussed if they all look similar they are most likely fibroadenomas and we could look to excising them but I would certainly wait until she was not nursing. They are reassured and do wish to proceed with the ultrasounds. We will see her back after the testing. Chief Complaint Pt ref by Dr. Tran for right breast lump. US 04/27/2022 cat 4. Core needle biopsy on 05/03/2022. Pt c/o tenderness. Denies family hx of breast cancer. Pt denies change in size. She found the mass in December. History of Present IllnessPatient is seen with her mother on referral from her primary care/guest services officer to discuss her recent biopsy results. These were done in April. It was benign and she was reassured and initially declined referral. Recently someone she knows was diagnosed with cancer after being told they did not have a colon cancer and were given the biopsy results of a different site. She is just apprehensive. She has felt the lump since December when she was immediately prepartum. The lump is pretty much unchanged. She did not develop a leak after the biopsy. She started her periods age 8 had her first child age 21 she is currently breast-feeding. There is no family history. She just wants reassurance Review of Systems Constitutional: Denies fever, chills, sweats,weight changes Cardiovascular: Denies chest pain or palpitations Respiratory: Denies SOB or cough Gastrointestinal: Denies change in bowel habits, abdominal pain or blood in the stool Genitourinary: Denies dysuria or frequency Musculoskeletal: Denies weakness or swelling Integumentary: Active Problems Anemia (285.9) (D64.9) Anxiety (300.00) (F41.9) Breast lump in female (611.72) (N63.0) Complex cyst of breast (610.0) (N60.09) Contraceptive management (V25.9) (Z30.9) Dysfunction of both eustachian tubes (381.81) (H69.83) Encounter for immunization (V03.89) (Z23) Generalized anxiety disorder (300.02) (F41.1) Insomnia (780.52) (G47.00) Intrahepatic cholestasis of (646.70,576.8) (O26.619,K83.1) Lower back pain (724.2) (M54.50) Lumbosacral radiculopathy (724.4) (M54.17) Migraines (346.90) (G43.909) Nausea and vomiting in (643.90) (O21.9) Obesity (278.00) (E66.9) follow-up (V24.2) (Z39.2) Screening for breast cancer (V76.10) (Z12.39) Screening for cervical cancer (V76.2) (Z12.4) Screening for STDs (sexually transmitted diseases) (V74.5) (Z11.3) Tinea versicolor (111.0) (B36.0) Women's annual routine gynecological examination (V72.31) (Z01.419) Past Medical History History of depression (V11.8) (Z86.59) History of inflammation of sacroiliac joint (V13.4) (Z87.39) Resolved Date: 18 Jul 2021 History of Menstruation Onset age 8 years History of NVD (normal vaginal delivery) (650) (O80) 01/14/2022_38weeks 3days_Female_7# 4oz History of Pap test, as part of routine gynecological examination (V76.2) (Z01.419) 06/02/2019: NIL Surgical History History of Breast biopsy excisional History of Intra-articular corticosteroid injection Managed By: Ashlyn Love (Pain Medicine) Rt SIJ History of Intrauterine device placement 04/03/2018 History of Knee surgery History of [place] tooth extraction Family History Family history of anemia (V18.2) (Z83.2) Family history of hypertension (V17.49) (Z82.49) Family history of migraine headaches (V17.2) (Z82.0) Family history of hypertension (V17.49) (Z82.49) Family history of migraine headaches (V17.2) (Z82.0) Family history of thyroid disease (V18.19) (Z83.49) Family history of POTS (postural orthostatic tachycardia syndrome) Family history of lung cancer (V16.1) (Z80.1) Family history of hypertension (V17.49) (Z82.49) Family history of hypertension (V17.49) (Z82.49) Family history of cerebrovascular accident (CV (more content not included)... Normal [employer] Tobacco Screening.on 022 Fall risk assessment a) No falls within the last year [facility] Work Phone: Tobacco use status CP b) No -[place] [facility] Work Phone: CLIP IMAGING DURING BREAST B IOPSYon 05-03-2022 CLIP IMAGING DURING BREAST BIOPSY Addendum Begins Patient Name: CHERRY MOREL ADDENDUM: The final pathology returned as: Dilated duct/cysts Fibro adenomatous changes Moderate periductal and perilobular chronic inflammation These results are concordant mammographic and ultrasonographic features. Recommendation is for follow-up examination in 1 year with screening mammograms. Electronically signed by: CHARAN MCKEON MD Addendum Ends Patient Name: CHERRY MOREL STUDY: ULTRASOUND GUIDED BREAST BIOPSY WITH CLIP; CLIP IMAGING DURING BREAST BIOPSY; 05/03/2022 11:10 am; 05/03/2022 11:18 am INDICATION: COMPLEX CYST IN RIGHT BREAST N60.09: Complex cyst of breast. ACCESSION NUMBER(S): [id number]; [id number] ORDERING CLINICIAN: KRUPA TRAN FINDINGS: PREPROCEDURAL CONSULTATION: The procedure was explained to the patient including the risks, benefits, and alternatives. Medications were discussed, including any prior use of blood thinning medications by the patient. Patient allergies were reviewed. The risks, including but not limited to infection and bleeding, were reviewed by the performing physician and the patient agreed to undergo the procedure. Prior to the procedure, an audible timeout was done to verify patient identification, site and type of procedure. Dr. Mckeon, a radiology nurse and an nanotechnology engineering technologist were present. PROCEDURE: Rescanning of the right breast redemonstrated the mass of concern in the 8 o'clock position, 6cm from the nipple. The right breast was marked under ultrasound guidance and cleansed. 10 mL of 1% lidocaine was injected subcutaneously and then into the deeper tissues surrounding the mass. A small incision was made. 4 tissue core specimens were then obtained with a 10 gauge vacuum assisted biopsy needle with minimal bleeding (estimated blood loss less than 10 mL). A david shaped tissue marker was then placed into the biopsy site. Hemostasis was achieved with manual compression. The patient tolerated the procedure without difficulty. The postbiopsy mammogram demonstrates satisfactory placement of the tissue marker in relationship to the mass. The patient experienced no complications during the procedure. Home-going/follow-up instructions were reviewed with the patient before she left the department. IMPRESSION: Status post ultrasound guided core needle biopsy of a right breast mass followed by tissue marker placement. Pathology is pending. POST PROCEDURE MAMMOGRAM FOR MARKER PLACEMENT. Electronically signed by: CHARAN MCKEON MD [facility] Panel Informationon 05-03 -Medical [facility] Work Phone: Normal -[facility] Work Phone: [facility] Work Phone: [facility] Surgical Pathology Depar tmenton 05-03-2022 [facility] Surgical [facility]ology Department Name CHERRY MOREL Pathologist: PARAMJIT BAKER MD Date of Procedure: 05/03/2022 Date Received: 05/03/2022 Date Reported 05/09/2022 Submitting Physician: KRUPA TRAN MD Location: [facility] Copy To/Referring/Attending: CHARAN MCKEON MD Other External # FINAL DIAGNOSIS A. RIGHT BREAST MASS, ULTRASOUND GUIDED CORE NEEDLE BIOPSY: -- DILATED DUCTS/CYSTS. -- FIBROADENOMATOUS CHANGES. -- MODERATE PERIDUCTAL AND PERILOBULAR CHRONIC INFLAMMATION. Note: Multiple deeper levels were reviewed. Slides are reviewed at breast review conference via Zoom meeting. Electronically Signed Out By PARAMJIT BAKER MD/[facility] By the signature on this report, the individual or group listed as making the Final Interpretation/Diagnosis certifies that they have reviewed this case. Diagnostic interpretation performed at [address] [place] [address] Clinical History: Physician Contact Number: Fixative (A): Formalin Report Copies To: Dr. Mckeon Clinical Diagnosis History Right breast mass Specimens Submitted As: A: RIGHT BREAST Gross Description: Received in formalin, labeled with the patient?s name and hospital number and right breast mass , are multiple irregular/cylindrical segments of yellow-white fatty soft tissue aggregating to 1.6 x 1.3 x 0.4 cm. The specimen is submitted in toto in one cassette. LMP NOTE: Ischemia time: 1103. This specimen was placed into formalin at: 1110 . lmp/05/04/2022 [facility] Department of Pathology [address] [place] [address] Normal [facility] Comment on above: Performed By: #### U [facility] #### [facility] Surgical Pathology Department [address] [place] [address] ULTRASOUND GUIDED BREAST BIO PSY WITH CLIPon 05-03-2022 ULTRASOUND GUIDED BREAST BIOPSY WITH CLIP Addendum Begins Patient Name: CHERRY MOREL ADDENDUM: The final pathology returned as: Dilated duct/cysts Fibro adenomatous changes Moderate periductal and perilobular chronic inflammation These results are concordant mammographic and ultrasonographic features. Recommendation is for follow-up examination in 1 year with screening mammograms. Electronically signed by: CHARAN MCKEON MD Addendum Ends Patient Name: CHERRY MOREL STUDY: ULTRASOUND GUIDED BREAST BIOPSY WITH CLIP; CLIP IMAGING DURING BREAST BIOPSY; 05/03/2022 11:10 am; 05/03/2022 11:18 am INDICATION: COMPLEX CYST IN RIGHT BREAST N60.09: Complex cyst of breast. ACCESSION NUMBER(S): [id number]; [id number] ORDERING CLINICIAN: KRUPA TRAN FINDINGS: PREPROCEDURAL CONSULTATION: The procedure was explained to the patient including the risks, benefits, and alternatives. Medications were discussed, including any prior use of blood thinning medications by the patient. Patient allergies were reviewed. The risks, including but not limited to infection and bleeding, were reviewed by the performing physician and the patient agreed to undergo the procedure. Prior to the procedure, an audible timeout was done to verify patient identification, site and type of procedure. Dr. Mckeon, a radiology nurse and an nanotechnology engineering technologist were present. PROCEDURE: Rescanning of the right breast redemonstrated the mass of concern in the 8 o'clock position, 6cm from the nipple. The right breast was marked under ultrasound guidance and cleansed. 10 mL of 1% lidocaine was injected subcutaneously and then into the deeper tissues surrounding the mass. A small incision was made. 4 tissue core specimens were then obtained with a 10 gauge vacuum assisted biopsy needle with minimal bleeding (estimated blood loss less than 10 mL). A david shaped tissue marker was then placed into the biopsy site. Hemostasis was achieved with manual compression. The patient tolerated the procedure without difficulty. The postbiopsy mammogram demonstrates satisfactory placement of the tissue marker in relationship to the mass. The patient experienced no complications during the procedure. Home-going/follow-up instructions were reviewed with the patient before she left the department. IMPRESSION: Status post ultrasound guided core needle biopsy of a right breast mass followed by tissue marker placement. Pathology is pending. POST PROCEDURE MAMMOGRAM FOR MARKER PLACEMENT. Electronically signed by: CHARAN MCKEON MD [facility] Panel Informationon 04-27 [facility] Work Phone: BREASTon 04-27-2022 US BREAST Patient Name: CHERRY MOREL STUDY: US BREAST; 04/27/2022 11:00 am ACCESSION NUMBER(S): [id number] ORDERING CLINICIAN: KRUPA TRAN INDICATION: lump right breast, nontender. N63.0: Breast lump in female. COMPARISON: None. FINDINGS: The right breast was examined with ultrasound at the 8 o'clock position. A complex mass is seen, with the cystic spaces interspersed with soft tissue, measuring 4 x 2 x 2.8 cm. The margins are smooth. The cystic area contains low-grade echoes within it. No right axillary lymphadenopathy. IMPRESSION: Complex mass right breast 8 o'clock position 9 cm from the nipple. BI-RADS CATEGORY: Category: 4 - Suspicious. Recommendation: Biopsy Recommended. For any future breast imaging appointments, please call [phone]). Electronically signed by: KAREN XIAO MD [facility] Office Visit (Primary Care T xt/Forms)on 04-20-2022 Follow-up visit Diagnoses/Problems Assessed Tinea versicolor (111.0) (B36.0) Breast lump in female (611.72) (N63.0) Orders Breast lump in female Ultrasound Limited Breast; Status:Hold For - Scheduling; Requested for:[id number]; Radiologist to Determine Optimal Study : Y What are the patient's signs and symptoms? : lump right breast, nontender. Chief Complaint SKIN DISCOLORATION, LUMP IN RT BREAST History of Present Illness Can you call Zoll treatment before 40 mg x 2 did not help, the rash does seem to be a little bit worse. selenium shampoo for now. itraconazole 400 mg daily x 3-7 days be the treatment to try if she does not go to dermatology. At this point since the rash is spreading I recommend she goes to see dermatology. But would not recommend trying the pills until she is done with breast-feeding, so she will call in about 6 months for referral to dermatology. breast lump started before delivery, but not gotten worse since delivery and breast feeding. not warm or painful. No fever chills. US first. Review of Systems Integumentary: a rash and breast lump, but no breast pain. 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,K83.1) Lower back pain (724.2) (M54.50) Lumbosacral radiculopathy (724.4) (M54.17) Migraines (346.90) (G43.909) Nausea and vomiting in (643.90) (O21.9) Obesity (278.00) (E66.9) follow-up (V24.2) (Z39.2) Screening for breast cancer (V76.10) (Z12.39) Screening for cervical cancer (V76.2) (Z12.4) Screening for STDs (sexually transmitted diseases) (V74.5) (Z11.3) Tinea versicolor (111.0) (B36.0) Women's annual routine gynecological examination (V72.31) (Z01.419) Past Medical History Problems History of inflammation of sacroiliac joint (V13.4) (Z87.39) History of Menstruation History of NVD (normal vaginal delivery) (650) (O80) History of Pap test, as part of routine gynecological examination (V76.2) (Z01.419) Surgical History Problems History of Intra-articular corticosteroid injection History of Intrauterine device placement History of Knee surgery History of [place] tooth extraction Family History Mother Family history of anemia (V18.2) (Z83.2) Family history of migraine headaches (V17.2) (Z82.0) Father No pertinent family history Sister Family history of migraine headaches (V17.2) (Z82.0) Family history of POTS (postural orthostatic tachycardia syndrome) Grandparent Family history of lung cancer (V16.1) (Z80.1) Social History Problems Denies alcohol consumption (V49.89) (Z78.9) Does not use illicit drugs (V49.89) (Z78.9) Never chewed tobacco (V49.89) (Z78.9) No advance directives (V49.89) (Z78.9) Sexually active Allergies Medication No Known Drug Allergies Vitals Vital Signs Recorded: 20Apr2022 10:13AM Heart Rate: 63 Systolic: 120 Diastolic: 80 Height: 5 ft 7 in Weight: 215 lb 5 oz BMI Calculated: 33.72 kg/m2 BSA Calculated: 2.09 Tobacco Use: b) No Falls Screening (Age 18+): a) No falls within the last year O2 Saturation: 98 Physical Exam General: Alert and oriented, No acute distress. Ambulation status: With steady gait. Appearance: Well nourished, Calm. Behavior: Cooperative. Integumentary: Warm, Dry, Nicholls, Intact. Psychiatric: Cooperative, Appropriate mood AND affect, Normal judgment. Signatures Electronically signed by : Krupa Tran MD; Apr 20 2022 10:42AM EST (Author) Normal [employer] Tobacco Screening.on 022 Fall risk assessment a) No falls within the last year [employer] [employer] [facility] Work Phone: Tobacco use status CP b) No [facility] Work Phone: HEPATIC FUNCTION PANELon Albumin [Mass/Vol] 3.9 g/dL Normal 3.4 - 5.0 [facility] [place] Comment on above: Performed By: #### H EPFP #### [address] [address] ALP [Catalytic activity/Vol] 78 U/L Normal 33 - 110 [facility] Comment on above: Performed By: #### H EPFP #### [address] [address] ALT [Catalytic activity/Vol] 9 U/L Normal 7 - 45 [facility] Comment on above: Result Comment: Marcia ents treated with Sulfasalazine may generate falsely decreased results for ALT. Performed By: #### H EPFP #### [address] [address] AST [Catalytic activity/Vol] 13 U/L Normal 9 - 39 [facility] Comment on above: Performed By: #### H EPFP #### [address] [address] Bilirubin [Mass/Vol] 0.5 mg/dL Normal 0.0 - 1.2 [facility] Comment on above: Performed By: #### H EPFP #### [address] [address] Bilirubin.indirect [Mass/Vol] 0.1 mg/dL Normal 0.0 - 0.3 [facility] Comment on above: Performed By: #### H EPFP #### [address] [address] Protein [Mass/Vol] 6.9 g/dL Normal 6.4 - 8.2 [facility] [place] Comment on above: Performed By: #### H EPFP #### [address] [address] Hepatic Function Panelon Albumin BCP dye [Mass/Vol] 3.9 g/dL 3.4 - 5.0 [facility] [address] Work Phone: [phone] ALP [Catalytic activity/Vol] 78 U/L 33 - 110 [facility] Work Phone: [phone] ALT With P-5'-P [Catalytic activity/Vol] 9 U/L 7 - 45 [facility] Work Phone: [phone] Comment on above: Patients treated wit h Sulfasalazine may generate falsely decreased results for ALT. AST With P-5'-P [Catalytic activity/Vol] 13 U/L 9 - 39 [facility] [address] Work Phone: [phone] Bilirubin [Mass/Vol] 0.5 mg/dL 0.0 - 1.2 [facility] [address] Work Phone: [phone] Bilirubin.direct [Mass/Vol] 0.1 mg/dL 0.0 - 0.3 [facility] [address] Work Phone: [phone] Protein [Mass/Vol] 6.9 g/dL 6.4 - 8.2 [facility] [address] Work Phone: [phone] ACTIVITIES COORDINATOR - Visiton 01-31-2022 ACTIVITIES COORDINATOR - Visit Chief Complaint Patient is here for her 4 week post visit. Patient had a vaginal delivery of a female on 01/14/22 at 38 weeks 3 days, weighted 7 # 4 oz. Patient is currently . Patient would not like to discuss control options. Patient has not resumed sexual activity. Patient declines post depression. Patient has no other concerns at this time. History of Present IllnessShe presents for checkup. She is currently breast-feeding. She will be using condoms for contraception. She voices no complaints and is doing well. Review of Systems Review of Systems: Constitutional: No fever or chills Respiratory: No shortness of breath, or cough Cardiovascular: No chest pain or syncope Breasts: No breast pain, no masses, no nipple discharge Gastrointestinal: No nausea, vomiting, or diarrhea, no abdominal pain Genitourinary: No dysuria or frequency Gynecology: Negative except as noted in history of present illness All other: All other systems reviewed and negative for complaint Active Problems Anemia (285.9) (D64.9) Anxiety (300.00) (F41.9) Contraceptive management (V25.9) (Z30.9) Dysfunction of both eustachian tubes (381.81) (H69.83) Encounter for immunization (V03.89) (Z23) Generalized anxiety disorder (300.02) (F41.1) Insomnia (780.52) (G47.00) Intrahepatic cholestasis of (646.70,576.8) (O26.619,K83.1) Lower back pain (724.2) (M54.50) Lumbosacral radiculopathy (724.4) (M54.17) Migraines (346.90) (G43.909) Nausea and vomiting in (643.90) (O21.9) Obesity (278.00) (E66.9) Screening for breast cancer (V76.10) (Z12.39) Screening for cervical cancer (V76.2) (Z12.4) Screening for STDs (sexually transmitted diseases) (V74.5) (Z11.3) Tinea versicolor (111.0) (B36.0) Women's annual routine gynecological examination (V72.31) (Z01.419) Past Medical History History of inflammation of sacroiliac joint (V13.4) (Z87.39) History of Menstruation Onset age 8 years History of NVD (normal vaginal delivery) (650) (O80) 01/14/2022_38weeks 3days_Female_7# 4oz History of Pap test, as part of routine gynecological examination (V76.2) (Z01.419) 06/02/2019: NIL Surgical History History of Intra-articular corticosteroid injection Rt SIJ History of Intrauterine device placement 04/03/2018 History of Knee surgery History of [place] tooth extraction Family History Family history of anemia (V18.2) (Z83.2) Family history of migraine headaches (V17.2) (Z82.0) No pertinent family history Family history of migraine headaches (V17.2) (Z82.0) Family history of POTS (postural orthostatic tachycardia syndrome) Family history of lung cancer (V16.1) (Z80.1) Social History Denies alcohol consumption (V49.89) (Z78.9) Does not use illicit drugs (V49.89) (Z78.9) Never chewed tobacco (V49.89) (Z78.9) No advance directives (V49.89) (Z78.9) Sexually active Allergies No Known Drug Allergies Recorded By: Akosua Palencia; 09/29/2019 2:03:23 PM Current Meds Aspirin 81 MG Oral Tablet Delayed Release; TAKE 2 TABLET Daily; Therapy: [id number] to (Last Rx:[id number]) Requested for: [id number] Ordered Rx By: Malena Mckee; Dispense: 0 Days ; #:60 Tablet; Refill: 11;For: 12 weeks gestation of ; ISAI = N; Verified Transmission to [id number]; Last Updated By: Mundo Malone; 07/18/2021 3:57:52 PM Ferrous Sulfate 325 (65 Fe) MG Oral Tablet; TAKE 1 TABLET DAILY DIRECTED; Therapy: [id number] to (Evaluate:[id number]) Requested for: [id number]; Last Rx:[id number] Ordered Rx By: Keren Lee; Dispense: 30 Days ; #:30 Tablet; Refill: 10;For: Anemia; ISAI = N; Verified Transmission to [id number]; Last Updated By: System, [employer]; 11/16/2021 3:27:14 PM PNV Plus Multivitamin TABS; Therapy: (Recorded:24Jun2021) to Recorded Dispense: 0 Days ; #: Sufficient; Refill: 0; ISAI = N; Record; Last Updated By: Kusum Katz; 06/24/2021 3:43:41 PM Vitals Vital Signs Recorded: 31Jan2022 10:47AM [id number] Lkzwmxenu52 Height5 ft 7 in Lnkicc87.3 kg BMI Uhvuhaemnc40.29 kg/m2 BSA Calculated2.1 Physical Exam PHYSICAL EXAMINATION: Well-developed, well nourished, in no acute distress, alert and oriented x three, is pleasant and cooperative. HEENT: Clear. Pupils equal, round and reactive to light and accommodation. Extraocular muscles are intact. Oral mucosa pink without exudate. NECK: No lymphadenopathy, no thyromegaly. LUNGS: Clear bilaterally. HEART: Regular rate and rhythm without murmurs. ABDOMEN: Normoactive bowel sounds, soft and nontender, no guarding or rebound tenderness, no CVA tenderness. EXTREMITIES: No clubbing, cyanosis or edema. NEUROLOGIC: Cranial nerves II-XII grossly intact. : Normal external female genitalia, normal vulva, normal vagina. Normal urethral meatus, urethra and bladder. Normal appearing cervix. Normal-sized uterus, no adnexal masses or tenderness. Diagnoses/Problems P (more content not included)... Normal [employer] Laboratory - Hematology and Cell countson 01-15-2022 Erythrocyte distribution width (RBC) [Ratio] 14.1 % See Below [employer] [address] Work Phone: Comment on above: Reference Range: 11. 5 - 14.5 Hematocrit (Bld) [Volume fraction] 31.2 % below low threshold See Below [facility] [employer] [address] Work Phone: Comment on above: Reference Range: 36. 0 - 46.0 Hemoglobin (Bld) [Mass/Vol] 10.6 g/dL below low threshold See Below [facility] [address] Work Phone: Comment on above: Reference Range: 12. 0 - 16.0 MCHC (RBC) [Mass/Vol] 34.0 g/dL See Below [facility] [address] Work Phone: [phone] Comment on above: Reference Range: 32. 0 - 36.0 MCV (RBC) [Entitic vol] 80 fL 80 - 100 [facility] [address] Work Phone: [phone] Platelets (Bld) [#/Vol] 268 10*3/uL 150 - 450 [facility] [address] Work Phone: [phone] RBC (Bld) [#/Vol] 3.92 {x10E12/L} below low threshold See Below [facility] [address] Work Phone: [phone] Comment on above: Reference Range: 4.0 0 - 5.20 WBC (Bld) [#/Vol] 14.0 10*3/uL above high threshold 4.4 - 11.3 [facility] [address] Work Phone: [phone] Laboratory - Blood bankon ABO group Nom (Bld) O [facility] [address] Work Phone: [phone] Blood group antibody screen Ql Negative [employer] [facility] [address] Work Phone: [phone] Rh immune globulin screen (Bld) [Interp] Positive [facility] [address] Work Phone: [phone] Laboratory - Chemistry and C hemistry - challengeon 01-14-2022 Albumin BCP dye [Mass/Vol] 2.9 g/dL below low threshold 3.4 - 5.0 [facility] [address] Work Phone: [phone] ALP [Catalytic activity/Vol] 114 U/L above high threshold 33 - 110 [facility] [address] Work Phone: [phone] ALT With P-5'-P [Catalytic activity/Vol] 168 U/L above high threshold 7 - 45 [facility] [address] Work Phone: [phone] Comment on above: Patients treated wit h Sulfasalazine may generate falsely decreased results for ALT. Anion gap [Moles/Vol] 11 mmol/L 10 - 20 [facility] Work Phone: [phone] AST With P-5'-P [Catalytic activity/Vol] 105 U/L above high threshold 9 - 39 [facility] Work Phone: [phone] Bilirubin [Mass/Vol] 0.6 mg/dL 0.0 - 1.2 [facility] Work Phone: [phone] Calcium [Mass/Vol] 7.9 mg/dL below low threshold 8.6 - 10.3 [facility] Work Phone: [phone] Chloride [Moles/Vol] 106 mmol/L 98 - 107 [facility] Work Phone: [phone] CO2 [Moles/Vol] 24 mmol/L 21 - 32 [facility] Work Phone: [phone] Creatinine [Mass/Vol] 0.53 mg/dL See Below [facility] Work Phone: [phone] Comment on above: Reference Range: 0.5 0 - 1.05 Glucose [Mass/Vol] 85 mg/dL 74 - 99 [facility] Work Phone: [phone] Potassium [Moles/Vol] 3.7 mmol/L 3.5 - 5.3 [facility] Work Phone: [phone] Protein [Mass/Vol] 5.4 g/dL below low threshold 6.4 - 8.2 [facility] Work Phone: [phone] Sodium [Moles/Vol] 137 mmol/L 136 - 145 [facility] Work Phone: [phone] Urea nitrogen [Mass/Vol] 5 mg/dL below low threshold 6 - 23 [facility] Work Phone: [phone] Laboratory - Hematology and Cell countson 01-14-2022 Erythrocyte distribution width (RBC) [Ratio] 14.3 % See Below [facility] [address] Work Phone: [phone] Comment on above: Reference Range: 11. 5 - 14.5 Hematocrit (Bld) [Volume fraction] 32.0 % below low threshold See Below [facility] [address] Work Phone: [phone] Comment on above: Reference Range: 36. 0 - 46.0 Hemoglobin (Bld) [Mass/Vol] 10.6 g/dL below low threshold See Below [facility] [address] Work Phone: [phone] Comment on above: Reference Range: 12. 0 - 16.0 MCHC (RBC) [Mass/Vol] 32.9 g/dL See Below [facility] [address] Work Phone: [phone] Comment on above: Reference Range: 32. 0 - 36.0 MCV (RBC) [Entitic vol] 81 fL 80 - 100 [facility] [address] Work Phone: [phone] Platelets (Bld) [#/Vol] 274 10*3/uL 150 - 450 [facility] [address] Work Phone: [phone] RBC (Bld) [#/Vol] 3.97 {x10E12/L} below low threshold See Below [facility] [address] Work Phone: [phone] Comment on above: Reference Range: 4.0 0 - 5.20 WBC (Bld) [#/Vol] 6.9 10*3/uL 4.4 - 11.3 [facility] [address] Work Phone: [phone] Panel Informationon 01-14 ORDER RECD [facility] [address] Work Phone: [phone] >90 >90 [facility] [address] Work Phone: [phone] Comment on above: CALCULATIONS OF DEBORAH MATED GFR ARE PERFORMED USING THE 2020 CKD-EPI STUDY REFIT EQUATION WITHOUT THE RACE VARIABLE FOR THE IDMS-TRACEABLE CREATININE METHODS.https://jasn.asnjournals.org/content//ASN.2 677848123 SYPHILIS SCREENING WITH REFL EXon 01-14-2022 T. pallidum IgG+IgM IA Ql (S) Non-Reactive See Below [facility] [address] Work Phone: Comment on above: SOURCE: Reference Ra nge: NONREACTIVENo significant level of Treponema pallidum antibody detected. Repeat testing in 2 to 4 weeks may be considered if early infection or incubating syphilis infection is suspected. Bile Acids, Totalon 01-14-20 Bile acid [Moles/Vol] 24.2 umol/L above high threshold 0.0-10.0 [facility] [address] Work Phone: Coronavirus 2019 RNA by PCR, Screening Asymptomticon 01-13-2022 Coronavirus 2019 RNA by PCR, Screening Asymptomtic Not detected Normal See Below [facility] [address] Work Phone: Comment on above: SOURCE: Nasal, Nasop haryngealReference Range: Not Detected.This test has received [facility] Emergency Use Authorization (EUA) and has been verified by [facility]. This test is only authorized for the duration of time that circumstances exist to justify the authorization of the emergency use of in vitro diagnostic tests for the detection of SARS-CoV-2 virus and/or diagnosis of COVID-19 infection under section 564(b)(1) of the Act, 21 U.S.C. 360bbb-3(b)(1), unless the authorization is terminated or revoked sooner. [facility] is certified under CLIA-88 as qualified to perform high complexity testing. Testing is performed in the [facility] laboratory located at [address] [place] [address].SARS-CoV-2/Flu/RSV Multiplex Test: Fact sheet for providers: https://www.fda.gov/media/964875/downloadFact sheet for patients: https://www.fda.gov/media/318097/download Laboratory - Chemistry and C hemistry - challengeon 01-13-2022 Albumin BCP dye [Mass/Vol] 3.1 g/dL below low threshold 3.4 - 5.0 [facility] Work Phone: [phone] ALP [Catalytic activity/Vol] 126 U/L above high threshold 33 - 110 [facility] [address] Work Phone: [phone] ALT With P-5'-P [Catalytic activity/Vol] 194 U/L above high threshold 7 - 45 [facility] [employer] Work Phone: [phone] Comment on above: Patients treated wit h Sulfasalazine may generate falsely decreased results for ALT. Anion gap [Moles/Vol] 12 mmol/L 10 - 20 [facility] Work Phone: [phone] AST With P-5'-P [Catalytic activity/Vol] 125 U/L above high threshold 9 - 39 [facility] Work Phone: [phone] Bilirubin [Mass/Vol] 0.8 mg/dL 0.0 - 1.2 [facility] Work Phone: [phone] Calcium [Mass/Vol] 8.1 mg/dL below low threshold 8.6 - 10.3 [facility] Work Phone: [phone] Chloride [Moles/Vol] 103 mmol/L 98 - 107 [facility] Work Phone: [phone] CO2 [Moles/Vol] 23 mmol/L 21 - 32 [facility] Work Phone: [phone] Creatinine [Mass/Vol] 0.48 mg/dL below low threshold See Below [facility] Work Phone: [phone] Comment on above: Reference Range: 0.5 0 - 1.05 Glucose [Mass/Vol] 112 mg/dL above high threshold 74 - 99 [facility] Work Phone: [phone] Potassium [Moles/Vol] 3.7 mmol/L 3.5 - 5.3 [facility] [address] Work Phone: [phone] Protein [Mass/Vol] 5.9 g/dL below low threshold 6.4 - 8.2 [facility] [address] Work Phone: [phone] Sodium [Moles/Vol] 134 mmol/L below low threshold 136 - 145 [facility] [address] Work Phone: [phone] Urea nitrogen [Mass/Vol] 8 mg/dL 6 - 23 [facility] [address] Work Phone: [phone] Laboratory - Hematology and Cell countson 01-13-2022 Erythrocyte distribution width (RBC) [Ratio] 13.7 % See Below [facility] [address] Work Phone: [phone] Comment on above: Reference Range: 11. 5 - 14.5 Hematocrit (Bld) [Volume fraction] 32.6 % below low threshold See Below [facility] [address] Work Phone: [phone] Comment on above: Reference Range: 36. 0 - 46.0 Hemoglobin (Bld) [Mass/Vol] 11.0 g/dL below low threshold See Below [facility] [address] Work Phone: [phone] Comment on above: Reference Range: 12. 0 - 16.0 MCHC (RBC) [Mass/Vol] 33.7 g/dL See Below [facility] [address] Work Phone: [phone] Comment on above: Reference Range: 32. 0 - 36.0 MCV (RBC) [Entitic vol] 80 fL 80 - 100 [facility] [address] Work Phone: [phone] Platelets (Bld) [#/Vol] 300 10*3/uL 150 - 450 [facility] [address] Work Phone: [phone] RBC (Bld) [#/Vol] 4.09 {x10E12/L} See Below [facility] [address] Work Phone: [phone] Comment on above: Reference Range: 4.0 0 - 5.20 WBC (Bld) [#/Vol] 8.1 10*3/uL 4.4 - 11.3 [facility] [address] Work Phone: [phone] No Panel Informationon 01-13 >90 >90 [facility] [address] Work Phone: [phone] Comment on above: CALCULATIONS OF DEBORAH MATED GFR ARE PERFORMED USING THE 2020 CKD-EPI STUDY REFIT EQUATION WITHOUT THE RACE VARIABLE FOR THE IDMS-TRACEABLE CREATININE METHODS.https://jasn.asnjournals.org/content/early/ASN.2 002064044 Total Protein, Urine Spoton 01-13-2022 Creatinine (U) [Mass/Vol] 206.0 mg/dL See Below [facility] [address] Work Phone: [phone] Comment on above: Reference Range: 20. 0 - 320.0 Protein (U) [Mass/Vol] 25 mg/dL above high threshold 5 - 24 [facility] [address] Work Phone: [phone] Protein/Creatinine (U) [Ratio] 0.12 {mg/mg_Creat} See Below [facility] [address] Work Phone: [phone] Comment on above: Reference Range: 0.0 0 - 0.17 GROUP B STREP SCREENon 12-28 GROUP B STREP SCREEN PATIENT: CHERRY ALEMAN [place]ATION: [facility] [place]ILL#: [id number] : 89 AGE: SEX: F ORDERED BY: MALENA MCKEE SOURCE: VAGINAL COLLECTED: 12/28/21 15:23 ANTIBIOTICS AT JUDY.: RECEIVED : 12/28/21 23:14 SITE: R E S U L T S GROUP B STREP SCREEN FINAL 12/30/21 10:14 NEGATIVE FOR GROUP B BETA STREP. Normal [facility] Comment on above: Performed By: #### G BSCR #### [facility] [id number] [place] [address] Laboratory - Microbiology an d Antimicrobial susceptibilityon 12-28-2021 Bacteria identified Aer cx Nom (Genital specimen) [facility] [address] Work Phone: Glucose, 1 Hour Screen, Preg nancyon 11-02-2021 Glucose 1 Hr post 50 g glucose PO [Mass/Vol] 91 mg/dL <135 [facility] [address] Work Phone: [phone] Comment on above: Diagnostic value wit h glucose loading dose of 50 g. Reference values from [place] [employer]. Diabetes Care 2015;38(Suppl.1):S8-S16 Laboratory - Hematology and Cell countson 11-02-2021 Erythrocyte distribution width (RBC) [Ratio] 13.8 % See Below [facility] [address] Work Phone: [phone] Comment on above: Reference Range: 11. 5 - 14.5 Hematocrit (Bld) [Volume fraction] 32.9 % below low threshold See Below [facility] [address] Work Phone: [phone] Comment on above: Reference Range: 36. 0 - 46.0 Hemoglobin (Bld) [Mass/Vol] 11.3 g/dL below low threshold See Below [facility] [address] Work Phone: [phone] Comment on above: Reference Range: 12. 0 - 16.0 MCHC (RBC) [Mass/Vol] 34.2 g/dL See Below [facility] [employer] Work Phone: [phone] Comment on above: Reference Range: 32. 0 - 36.0 MCV (RBC) [Entitic vol] 82 fL 80 - 100 [facility] [address] Work Phone: [phone] Platelets (Bld) [#/Vol] 307 10*3/uL 150 - 450 [facility] [address] Work Phone: [phone] RBC (Bld) [#/Vol] 4.02 {x10E12/L} See Below [facility] [address] Work Phone: [phone] Comment on above: Reference Range: 4.0 0 - 5.20 WBC (Bld) [#/Vol] 10.3 10*3/uL 4.4 - 11.3 [facility] [address] Work Phone: [phone] Tobacco Screening.on 022 Adult depression screening assessment No [facility] Work Phone: [phone] Fall risk assessment a) No falls within the last year [facility] Work Phone: [phone] Tobacco use status [facility] b) No [facility] Work Phone: [phone] Laboratory - Chemistry and C hemistry - challengeon 09-05-2021 Anion gap [Moles/Vol] 10 mmol/L 10 - 20 [facility] Work Phone: [phone] Calcium [Mass/Vol] 9.2 mg/dL 8.6 - 10.3 [facility] [employer] Work Phone: [phone] Chloride [Moles/Vol] 104 mmol/L 98 - 107 [facility] Work Phone: [phone] CO2 [Moles/Vol] 26 mmol/L 21 - 32 [facility] Work Phone: [phone] Creatinine [Mass/Vol] 0.51 mg/dL See Below [facility] Work Phone: [phone] Comment on above: Reference Range: 0.5 0 - 1.05 Glucose [Mass/Vol] 96 mg/dL 74 - 99 [facility] Work Phone: [phone] Potassium [Moles/Vol] 3.6 mmol/L 3.5 - 5.3 [facility] Work Phone: [phone] Sodium [Moles/Vol] 136 mmol/L 136 - 145 [facility] [employer] Work Phone: [phone] Urea nitrogen [Mass/Vol] 8 mg/dL 6 - 23 [facility] [employer] Work Phone: [phone] Panel Informationon 09-05 >60 >60 [facility] [employer] Work Phone: Comment on above: CALCULATIONS OF DEBORAH MATED GFR ARE PERFORMED USING THE MDRD STUDY EQUATION FOR THE IDMS-TRACEABLE CREATININE METHODS. CLIN CHEM 2007;53:766-72 Normal [facility] [address] Work Phone: Please click on the link to view the study images Normal [facility] [address] Work Phone: Cult, Urineon 08-05-2021 Bacteria identified Cx Nom (U) [facility] [address] Work Phone: INFLUENZA A/B, COVID 2018 PC R,SYMPTOMATICon 08-05-2021 Date and time of symptom onset [id number] [facility] Work Phone: INFLUENZA A/B, COVID 2019 PCR,SYMPTOMATIC Not detected See Below [facility] [employer] [facility] Work Phone: Comment on above: Reference Range: Not Detected.This test has received [facility] Emergency Use Authorization (EUA) and has been verified by [facility]. This test is only authorized for the duration of time that circumstances exist to justify the authorization of the emergency use of in vitro diagnostic tests for the detection of SARS-CoV-2 virus and/or diagnosis of COVID-19 infection under section 564(b)(1) of the Act, 21 U.S.C. 360bbb-3(b)(1), unless the authorization is terminated or revoked sooner. [facility] is certified under CLIA-88 as qualified to perform high complexity testing. Testing is performed in the [facility] laboratory located at [address] [place] [address].SARS-CoV-2/Flu/RSV Multiplex Test: Fact sheet for providers: https://www.fda.gov/media/989618/downloadFact sheet for patients: https://www.fda.gov/media/463256/download Reference Range: Not Detected Respiratory virus testing is performed routinely by PCR for Influenza A/B and RSV. Not Detected results do not preclude Influenza A/B or RSV infections since the adequacy of sample collection or low viral burden may impact the clinical sensitivity of this test method. SOURCE: Nasal, Nasop haryngealReference Range: Not Detected Respiratory virus testing is performed routinely by PCR for Influenza A/B and RSV. Not Detected results do not preclude Influenza A/B or RSV infections since the adequacy of sample collection or low viral burden may impact the clinical sensitivity of this test method. URINALYSIS WITH CULTURE IF I NDICATEDon 08-05-2021 Color (U) Yellow See Below [facility] Work Phone: [phone] Comment on above: Reference Range: STR AW,YELLOW Glucose Ql (U) Negative NEGATIVE [facility] Work Phone: [phone] Ketones Ql (U) Negative NEGATIVE [facility] [employer] Phone: [phone] Leukocyte esterase Test strip Ql (U) LARGE(3+) Abnormal NEGATIVE [facility] Work Phone: [phone] pH (U) 6.0 [pH] 5.0 - 8.0 [facility] Work Phone: [phone] Protein (U) [Mass/Vol] Negative NEGATIVE [facility] Work Phone: [phone] RBC (U) [#/Vol] [facility] [employer] [facility] [employer] Phone: [phone] Specific gravity (U) [Rel density] 1.005 1 See Below [facility] [employer] Phone: [phone] Comment on above: Reference Range: 1.0 05 - 1.035 URINALYSIS WITH CULTURE IF INDICATED Negative NEGATIVE [facility] Work Phone: [phone] URINALYSIS WITH CULTURE IF INDICATED <2.0 0.0 - 1.9 [facility] [employer] Phone: [phone] URINALYSIS WITH CULTURE IF INDICATED HAZY CLEAR [facility] Work Phone: Urinalysis, Microscopicon Urinalysis, Microscopic 4+ Abnormal [facility] Work Phone: Urinalysis, Microscopic 7 {/HPF} [facility] Work Phone: Urinalysis, Microscopic 6 {/HPF} Abnormal 0-5 -[facility] Work Phone: Urinalysis, Microscopic MANY -[facility] Work Phone: Urinalysis, Microscopic 22 {/HPF} Abnormal 0-5 [facility] Work Phone: HIV 1/2 ANTIGEN/ANTIBODY SCR EEN WITH REFLEX TO CONFIRMATIONon 07-19-2021 HIV 1+2 Ab Qn (S) Non-Reactive See Below [facility] [address] Work Phone: Comment on above: SOURCE: Reference Ra nge: NONREACTIVE HIV Ag/Ab screen is performed using the Siemens Hammerhead Navigation HIV Ag/Ab Combo assay which detects the presence of HIV p24 antigen as well as antibodies to HIV-1 (Group M and O) and HIV-2..No laboratory evidence of HIV infection. If acute HIV infection is suspected, consider testing for HIV RNA by PCR (viral load). Hemoglobin A1Con 07-19-2021 Glucose [Mass/Vol] 105 mg/dL [facility] [address] Work Phone: HbA1c (Bld) [Mass fraction] 5.3 % [facility] [address] Work Phone: Comment on above: Diagnosis of Diabete s-Adults Non-Diabetic: < or = 5.6% Increased risk for developing diabetes: 5.7-6.4% Diagnostic of diabetes: > or = 6.5%. Monitoring of Diabetes Age (y) Therapeutic Goal (%) Adults: >18 <7.0 Pediatrics: 13-18 <7.5 7-12 <8.0 0- 6 7.5-8.5 [place] [employer]. Diabetes Care 33(S1), Sep 2009. Hepatitis B Surface Antigeno n 07-19-2021 Hepatitis B Surface Antigen Non-Reactive See Below [facility] [address] Work Phone: Comment on above: SOURCE: Reference Ra nge: NONREACTIVE Biotin interference may cause falsely decreased results. Patients taking a Biotin dose of up to 5 mg/day should refrain from taking Biotin for 24 hours before sample collection. Providers may contact their local laboratory for further information. SOURCE: Aleida roberts: NONREACTIVE Results from patients taking biotin supplements or receiving high-dose biotin therapy should be interpreted with caution due to possible interference with this test. Providers may contact their local laboratory for further information. Laboratory - Blood bankon ABO group Nom (Bld) O [facility] [address] Work Phone: [phone] ABO group Nom (Bld) Canceled [facility] [address] Work Phone: [phone] Blood group antibody screen Ql Negative [facility] [address] Work Phone: [phone] Blood group antibody screen Ql Canceled [facility] [address] Work Phone: [phone] Rh immune globulin screen (Bld) [Interp] Positive [facility] [address] Work Phone: [phone] Rh immune globulin screen (Bld) [Interp] Canceled [facility] [address] Work Phone: [phone] Laboratory - Hematology and Cell countson 07-19-2021 Erythrocyte distribution width (RBC) [Ratio] 13.9 % See Below [facility] [address] Work Phone: [phone] Comment on above: Reference Range: 11. 5 - 14.5 Hematocrit (Bld) [Volume fraction] 37.2 % See Below [facility] [address] Work Phone: [phone] Comment on above: Reference Range: 36. 0 - 46.0 Hemoglobin (Bld) [Mass/Vol] 12.4 g/dL See Below [facility] [address] Work Phone: [phone] Comment on above: Reference Range: 12. 0 - 16.0 MCHC (RBC) [Mass/Vol] 33.3 g/dL See Below [facility] [address] Work Phone: [phone] Comment on above: Reference Range: 32. 0 - 36.0 MCV (RBC) [Entitic vol] 81 fL 80 - 100 [facility] [address] Work Phone: [phone] Platelets (Bld) [#/Vol] 276 10*3/uL 150 - 450 [facility] [address] Work Phone: [phone] RBC (Bld) [#/Vol] 4.60 {x10E12/L} See Below [facility] [address] Work Phone: [phone] Comment on above: Reference Range: 4.0 0 - 5.20 WBC (Bld) [#/Vol] 6.7 10*3/uL 4.4 - 11.3 [facility] [address] Work Phone: [phone] Panel Informationon 07-19 NONE [facility] [employer] Work Phone: [phone] Rubella IgG Antibodyon 07-19 Rubella virus IgG IA Ql Equivocal [facility] [address] Work Phone: [phone] Comment on above: SOURCE: INTERPRETATI VE COMMENT NEGATIVE: No IgG antibodies specific to Rubella detected. It is likely that the patient has not had a previous exposure to Rubella through infection or vaccination. Alternatively, the patient may have been exposed to Rubella but a failure to respond may indicate immunodeficiency. EQUIVOCAL:Equivocal results; obtain additional sample for retesting. POSITIVE: IgG antibody to Rubella detected. This may indicate that the patient was exposed to Rubella through infection or vaccination.The interpretation of serological tests should take into accountthe immunological status of the patient. Test results forpatients, including immunocompromised patients, neonates, andpediatric patients, reflect their capacity to respondimmunologically to the virus as well as their exposure to thepathogen. Patients treated with IVIG may demonstrate alteredresults in serological assays. SYPHILIS SCREENING WITH REFL EXon 07-19-2021 T. pallidum IgG+IgM IA Ql (S) Non-Reactive See Below [facility] [address] Work Phone: [phone] Comment on above: SOURCE: Reference Ra nge: NONREACTIVENo significant level of Treponema pallidum antibody detected. Repeat testing in 2 to 4 weeks may be considered if early infection or incubating syphilis infection is suspected. Cult, Urineon 07-18-2021 Bacteria identified Cx Nom (U) [facility] [address] Work Phone: GC + Chlamydia By Amplified Detectionon 07-18-2021 C. trachomatis rRNA DURAN+probe Ql (Unsp spec) Negative Negative [facility] [address] Work Phone: Comment on above: The APTIMA Combo 2 a ssay is FDA-approved for Chlamydia trachomatis and Neisseria gonorrhoeae testing on female endocervical and vaginal swabs, ThinPrep liquid pap samples, male urine samples and urethral swabs. Performance characteristics for Chlamydia trachomatis and Neisseria gonorrhoeae testing on specific zjc-ZFS-mflqsgqd sample types (female urine samples) have been validated by [facility]. This laboratory is certified by CLIA to perform high complexity testing. Samples from all other sites are not validated for this method. N. gonorrhoeae rRNA DURAN+probe Ql (Unsp spec) Negative Negative [facility] [address] Work Phone: Comment on above: SOURCE: Urine The AP EILEEN Combo 2 assay is FDA-approved for Chlamydia trachomatis and Neisseria gonorrhoeae testing on female endocervical and vaginal swabs, ThinPrep liquid pap samples, male urine samples and urethral swabs. Performance characteristics for Chlamydia trachomatis and Neisseria gonorrhoeae testing on specific ldi-KHG-vwzzqypk sample types (female urine samples) have been validated by [facility]. This laboratory is certified by CLIA to perform high complexity testing. Samples from all other sites are not validated for this method. HIV 1/2 ANTIGEN/ANTIBODY SCR EEN WITH REFLEX TO CONFIRMATIONon 07-18-2021 HIV 1+2 Ab Qn (S) Canceled [facility] [address] Work Phone: Comment on above: SOURCE: HIV Ag/Ab sc reen is performed using the Siemens Hammerhead Navigation HIV Ag/Ab Combo assay which detects the presence of HIV p24 antigen as well as antibodies to HIV-1 (Group M and O) and HIV-2. Hemoglobin A1Con 07-18-2021 HbA1c (Bld) [Mass fraction] Canceled [facility] [address] Work Phone: [phone] Comment on above: Diagnosis of Diabete s-Adults Non-Diabetic: < or = 5.6% Increased risk for developing diabetes: 5.7-6.4% Diagnostic of diabetes: > or = 6.5%. Monitoring of Diabetes Age (y) Therapeutic Goal (%) Adults: >18 <7.0 Pediatrics: 13-18 <7.5 7-12 <8.0 0- 6 7.5-8.5 [place] [employer]. Diabetes Care 33(S1), Sep 2009. Hepatitis B Surface Antigeno n 07-18-2021 Hepatitis B Surface Antigen Canceled [facility] [employer] Work Phone: [phone] Comment on above: SOURCE: Biotin inter ference may cause falsely decreased results. Patients taking a Biotin dose of up to 5 mg/day should refrain from taking Biotin for 24 hours before sample collection. Providers may contact their local laboratory for further information. SOURCE: Results from patients taking biotin supplements or receiving high-dose biotin therapy should be interpreted with caution due to possible interference with this test. Providers may contact their local laboratory for further information. Laboratory - Blood bankon ABO group Nom (Bld) Canceled [facility] [employer] Work Phone: [phone] Blood group antibody screen Ql Canceled [facility] [employer] Work Phone: [phone] Rh immune globulin screen (Bld) [Interp] Canceled [facility] [employer] Work Phone: [phone] Laboratory - Hematology and Cell countson 07-18-2021 Hematocrit (Bld) [Volume fraction] Canceled [facility] [address] Work Phone: [phone] Hemoglobin (Bld) [Mass/Vol] Canceled [facility] [employer] Work Phone: [phone] Platelets (Bld) [#/Vol] Canceled [facility] [employer] Work Phone: [phone] RBC (Bld) [#/Vol] Canceled [facility] [employer] Work Phone: Rubella IgG Antibodyon 07-18 Rubella virus IgG IA Ql Canceled [facility] [address] Work Phone: Comment on above: SOURCE: INTERPRETATI VE COMMENT NEGATIVE: No IgG antibodies specific to Rubella detected. It is likely that the patient has not had a previous exposure to Rubella through infection or vaccination. Alternatively, the patient may have been exposed to Rubella but a failure to respond may indicate immunodeficiency. EQUIVOCAL:Equivocal results; obtain additional sample for retesting. POSITIVE: IgG antibody to Rubella detected. This may indicate that the patient was exposed to Rubella through infection or vaccination.The interpretation of serological tests should take into accountthe immunological status of the patient. Test results forpatients, including immunocompromised patients, neonates, andpediatric patients, reflect their capacity to respondimmunologically to the virus as well as their exposure to thepathogen. Patients treated with IVIG may demonstrate alteredresults in serological assays. SYPHILIS SCREENING WITH REFL EXon 07-18-2021 T. pallidum IgG+IgM IA Ql (S) Canceled [facility] [address] Work Phone: Comment on above: SOURCE: IO HCG, Urine Test on 06-24-2021 HCG ( test) Ql (U) Positive [facility] [address] Work Phone: LMPon 06-24-2021 Last menstrual period start date [id number] [facility] [address] Work Phone: Otheron 03-02-2020 Interpreted by: KATIA BISHOP03/02/20 21:49MRN: [id number] Name: CHERRY ALEMAN STUDY:SPINE, LUMBOSACRAL CMPLT(BENDING); ; 03/02/2020 3:22 pm INDICATION:pain. COMPARISON:None. ORDERING CLINICIAN:ASHLYN LOVE FINDINGS:AP lateral flexion and extension and bilateral oblique views of thelumbar spine. Osseous structures and soft tissues appear normal.Alignment is normal. No fracture or dislocation is noted. IMPRESSION:Unremarkable lumbar spine series Electronically signed by: NO BISHOP 03/02/20 21:49 Normal [facility] Work Phone: MRI L Spine without Contrast on 02-09-2020 MRI L Spine without Contrast Interpreted by: VICKEY GARCIA02/09/20 09:27MRN: [id number] Name: CHERRY ALEMAN STUDY:MRI L-SPINE WO; 02/09/2020 8:48 am INDICATION:low back pain, right leg pain Low back pain Pain in right leg. COMPARISON:None. ORDERING CLINICIAN:KRUPA TRAN TECHNIQUE:Sagittal T1, T2, STIR, axial T1 and T2 weighted images of the lumbarspine were acquired. FINDINGS:Height and alignment of the lumbar vertebral bodies are preserved.There is partial disc desiccation L3-4 L4-5 and L5-S1. Conusmedullaris terminates appropriately at the L1 level. L1-2: There is no significant central canal or neural foraminalstenosis. L2-3: There is no significant central canal or neural foraminalstenosis. L3-4: Minimal to moderate central herniation indents the ventralthecal sac without appearing to impinge upon the traversing L4 nerveroots. Neuroforamina are patent. L4-5: Small central herniation superimposed upon disc bulge indentsthe ventral thecal sac without appearing to impinge upon thetraversing L5 nerve roots. L5-S1: Small central herniation indents the ventral epidural fat.Neuroforamina are patent with small left greater than right faceteffusions. IMPRESSION:Degenerative changes of the lumbar spine as above described mostprominently at L3-4 and L4-5 where central herniations indent theventral thecal sac without associated focal nerve root compressionidentified.Elec tronically signed by: VICKEY GARCIA 02/09/20 09:27 [facility] [place] Work Phone: IO UA (automated w/o microsc opy)on 02-02-2020 Protein (U) [Mass/Vol] 30 mg/dL [facility] Work Phone: IO UA (automated w/o microscopy) Negative [facility] Work Phone: IO UA (automated w/o microscopy) 1.025 [facility] Work Phone: IO UA (automated w/o microscopy) (++)moderate - 40 [facility] Work Phone: IO UA (automated w/o microscopy) Yellow [facility] Work Phone: IO UA (automated w/o microscopy) 7.0 [facility] Work Phone: IO UA (automated w/o microscopy) Normal (0.2-1.0 mg/dl) [facility] [place]: IO UA (automated w/o microscopy) Cloudy [facility] Work Phone: Otheron 02-02-2020 Interpreted by: FERNANDO GRACIA02/02/20 13:31MRN: [id number] Name: CHERRY ALEMAN STUDY:SPINE, LUMBOSACRAL MIN 4 VIEWS;; 02/02/2020 12:33 pm INDICATION:low back pain and tight leg pain. COMPARISON:None. ORDERING CLINICIAN:KRUPA TRAN FINDINGS:There is no evidence of scoliosis. The disc spaces are well maintained. No acute fracture or dislocation is seen. IMPRESSION:Normal exam of the lumbar spine. Electronically signed by: EUGENE GRACIA 02/02/20 13:[address] [facility] Work Phone: IO UA (automated w/o microsc opy)on 11-04-2019 Protein (U) [Mass/Vol] Negative [facility] Work Phone: IO UA (automated w/o microscopy) Cloudy [facility] Work Phone: IO UA (automated w/o microscopy) Negative [facility] Work Phone: IO UA (automated w/o microscopy) 1.020 [facility] Work Phone: IO UA (automated w/o microscopy) Yellow [facility] linda Lopes Work Phone: IO UA (automated w/o microscopy) 8.5 [facility] linda [facility]opes Work Phone: IO UA (automated w/o microscopy) Normal [facility]: IGP W/hpv Rfx [id number] 06-05 Diagnosis: See Ref Lab Report Normal [facility] Comment on above: Performed By: #### 1 [id number] #### LEAH Send Outs Subsection [address] [place] [address] Chlamydia GC by PCRon 2018 Chlamydia by PCR. Not Detected Normal Not Detected [facility] Comment on above: Result Comment: Xper t CT/NG Assay performance has not been evaluated in patients less than 14 years of age. Performed By: #### 3 [id number] #### LEAH Misc Micro SubSection , Gonorrhoeae by PCR Not Detected Normal Not Detected [facility] Comment on above: Result Comment: Xper t CT/NG Assay performance has not been evaluated in patients less than 14 years of age. Performed By: #### 3 [id number] #### LEAH Misc Micro SubSection , [facility] 06-02[facility]2019 [facility] Date of Procedure: 06/02/2019 Pathologist: CELESTE LUNDY Date Reported: 06/05/2019 Date Received: 06/03/2019 Submitting Physician: MALENA MCKEE, DO FINAL CYTOLOGICAL INTERPRETATION A. THINPREP PAP Cervical / Endocervical Reflex - [facility] only: Specimen adequacy: SATISFACTORY FOR EVALUATION. Quality Indicator: Endocervical/transformatio n zone component is present. General Categorization: NEGATIVE FOR INTRAEPITHELIAL LESION OR MALIGNANCY. Electronically Signed Out By [facility], Cytology//MXG By the signature on this report, the individual or group listed as making the Final Interpretation/Diagnosis certifies that they have reviewed this case. Educational Note: Cervical cytology is a screening procedure primarily for squamous cancers and precursors and has associated false-negative and false-positive results as evidenced by published data. Your patient?s test should be interpreted in this context, together with patient?s history and clinical findings. Regular sampling and follow-up of unexplained clinical signs and symptoms are recommended to minimize false negative results. Clinical History Date of Last Menstrual Period: None provided Other Clinical Conditions: Reflex HPV Testing Ordered: [facility] and Above Z12.4, Z01.419 Source of Specimen A: THINPREP PAP Cervical / Endocervical Reflex - [facility] only Normal [facility] Otheron 06-02-2019 649 Date of Procedure: 06/02/2019 Pathologist: CELESTE LUNDYDate Reported: 06/05/2019Date Received: 06/03/2019Submitting Physician: MALENA MCKEE, DO FINAL CYTOLOGICAL INTERPRETATIONA. THINPREP PAP Cervical / Endocervical Reflex - [facility] only: Specimen adequacy: SATISFACTORY FOR EVALUATION. Quality Indicator: Endocervical/transformatio n zone component is present. General Categorization: NEGATIVE FOR INTRAEPITHELIAL LESION OR MALIGNANCY. Electronically Signed Out By [facility], Cytology//MXG By the signature on this report, the individual or group listed as making theFinal Interpretation/Diagnosis certifies that they have reviewed this case.Educational Note:Cervical cytology is a screening procedure primarily for squamous cancers andprecursors and has associated false-negative and false-positive results asevidenced by published data. Your patient's test should be interpreted in thiscontext, together with patient's history and clinical findings. Regularsampling and follow-up of unexplained clinical signs and symptoms arerecommended to minimize false negative results. Clinical HistoryDate of Last Menstrual Period: None providedOther Clinical Conditions:Reflex HPV Testing Ordered: [facility] and WmqdxA61.4, Z01.419 Source of SpecimenA: THINPREP PAP Cervical / Endocervical Reflex - [facility] only [facility] [address] Work Phone: C Urineon 11-15-2018 C Urine Final Report: Light growth of Normal skin keyshawn isolated Normal [facility] Comment on above: Performed By: #### 2 [id number] #### LEAH Microbiology Subsection [address] [place] [address] Progress Noteon 01-23-2018 Commercial Finance Analyst Authentication Interface Message Text Patient ID: Cherry Aleman is a 17 y.o. female. Her chief complaint(s)include: Rash (both injection site in both arms)Assessment1. Immunization reaction, initial encounter2. Pain in both upper extremitiesPlanEmily was seen today for rash.Diagnoses and all orders for this visit:Immunization reaction, initial encounterPain in both upper extremitiesLocalize immunization reaction - not allergic reaction. Explained self limitingcourse. Should take OTC tylenol or ibuprofen, use warm compress. Reviewedreasons to return.Return if symptoms worsen or fail to improve.SubjectiveHPI Comments: Received HPV in left arm, bexsero in right armShe is unaccompanied. No multi disciplined language analyst was used.RashThe onset has been acute. The duration has been 1 day. The pattern iscontinuous. The course is unchanging.The rash is located on the arm(s). The rash is described as red, bumpy andwarm. The symptoms are described as mild. Onset followed new medication (HPVgiven in left arm, Men B in right arm). Onset followed no skin contact withallergen, no food ingestion, no insect bite, no recent illness, no recenttravel, no recent immunizations, no exposure to pets, no exposure to [employer], nonew skin care products, no exposure to hot tub and no sports involvement. Thepatient has no fever, no fussiness, no difficulty sleeping, no sore throat, nochest congestion, no shortness of breath, no difficulty breathing, no abdominalpain, no nausea, no vomiting and no diarrhea. (Tender when trying to move rightarm).Review of SystemsSkin: Positive for rash.ObjectiveVitals: 01/23/18 1101BP: 114/66Pulse: 76Temp: 36.9 C (98.4 F)TempSrc: TemporalWeight: (!) 114.8 kgBody mass index is 40.92 kg/m .Physical ExamConstitutional: Vital signs are normal. She appears overweight. She appearswell. She is active and cooperative. Non-toxic appearance. No distress.HENT:Head: Normocephalic and atraumatic.Right Ear: Tympanic membrane and external ear normal.Left Ear: Tympanic membrane and external ear normal.Nose: Nose normal.Mouth/Throat: Mucous membranes are moist. Dentition is normal. Oropharynx isclear.Eyes: Conjunctivae are normal.Cardiovascular: Normal rate and regular rhythm.No murmur heard.Pulmonary/Chest: Breath sounds normal. There is normal air entry.Musculoskeletal: Right shoulder: Normal. She exhibits normal range of motion (full AROM ofright shoulder - does reproduce tenderness). Left shoulder: Normal.Neurological: She is alert. She is not disoriented. She displays no atrophy. Nocranial nerve deficit or sensory deficit. She exhibits normal muscle tone.Skin: Capillary refill takes less than 3 seconds. Lesion noted. No rash noted.Erythematous, raised nodule on bilateral deltoid region of upper arms at thelocation of where vaccines given, warm to touch, tender to touch, not indurated,no purulent drainage or bleeding Skin is warm and dry.Vitals reviewed: Blood pressure 114/66, pulse 76, temperature 36.9 C (98.4 F),temperature source Temporal, weight (!) 114.8 kg, last menstrual [id number]/12/2017. Normal [facility] Progress Noteon 01-21-2018 Commercial Finance Analyst Authentication Interface Message Text Patient ID: Cherry Aleman is a 17 y.o. female. Her chief complaint(s)include: 17 YEAR WELL CHILDAssessment1. Routine general medical examination at a health care facility2. Irregular periods3. Abnormal weight gain4. Need for vaccinationPlanEmily was seen today for 17 year well child.Diagnoses and all orders for this visit:Routine general medical examination at a health care facility- Behavioral/Emotional Assessment w Score - PHQ-9Irregular periods- AMB Referral To Obstetrics/Gynecology; Future- Complete Blood Count with Diff (Lab Collect); Future- Iron & TIBC (Lab Collect); Future- Ferritin (Lab Collect); Future- Testosterone, Total; FutureAbnormal weight gain- Hemoglobin A1c; Future- ALT; Future- AST; Future- Lipid panel; Future- TSH- T4, free- Vitamin D 25 hydroxy (Lab Collect); FutureNeed for vaccination- meningococcal group B vaccine (BEXSERO)- HPV 9 valent vaccine IM suspPHQ-9 elevated - given patients medical history, would like to rule out organiccauses for depressive symptoms.Anticipatory guidance reviewed. Will refer to gynecology for contraception andirregular period management - will try [facility] first. Will notify patient ofresults and plan of care. Reviewed 5210 and physical activity. Follow up withneuro and sleep medicine as previously instructed.Return in about 1 year (around 01/21/2019) for well check, 2nd men B in 1 month-nurse visit; 4 months for 3rd HPV - nurse visit.SubjectiveHPI Comments: History of chronic headaches - sees neuroHistory of insomnia - sees sleep doctor - Dr. Chaney - seems to be at itsbaselineGained 40 pounds in 2 months - going to sign up for gym but doesn't have fundsto do soNoticed she is very tired all the time, parents think she is very pale as wellDenies depression or anxiety, denies SI/HIShe is unaccompanied. No multi disciplined language analyst was used.17 YEAR WELL CHILDHome:Cherry eats meals with family and has an adult to turn to for help.Education:She Is in melly year of college and is doing well. ([employer], [place] )Eating:Cherry has concerns about body appearance. Cherry does not eat regular mealsincluding fruits and vegetables, does not eat breakfast (reflux) and does notlimit fast food (school food horrible).Activities & Sports:She has friends, has a job and engages in screen time less than 2 hours daily.She performs less than 1 hour of physical activity daily.Drugs:She does not use tobacco, does not use drugs and does not use alcohol.Safety:She has a violence free home.Sex:Cherry is sexually active. STD screening offered and declined.Cherry was 16 when she had her first sexual encounter.She has had 1 partners. Her sexual partners are males (has only had sex 2-3times with same partner - has not been having sex since she is not on OCPsanymore). She identifies as heterosexual. Cherry always uses condoms.Typically, she uses condoms as her current contraceptive method. (No longer onOCPs - due to headaches, interested in other potential methods). She haspreviously been : Jeanettehe has not had an STD.Suicidality:She has ways to cope with stress, displays self-confidence, has problems withsleep (chronic) and has a mental health risk identified. She has no depression,has no anxiety, does not have mood swings, has no suicidal ideation and has nohomicidal ideation.MenstruationLast Menstrual period: LMP from [facility] last menstrual period was 12/12/2017 (exact date)..Menstruation: irregular periods and moderate cramping (40 days in between;changes super tampons 1-2 hours)OutputUrine and Stool Pattern:Urine and Stool Pattern: Normal stool pattern, normal urine pattern.Stool Consistency: softSleepSleeping Difficulty: difficulty falling asleepHours of sleep at a time: 6 (5 hours during school)Teen Anticipatory GuidanceThe following anticipatory guidance was reviewed during the visit:Nutrition: limit junk food/fast food and soft drinks.Safety: gun safety and home safety.Social: avoid or limit screen time.Health: age appropriate dental care, age appropriate sleep habits, don't smokeor chew tobacco, learn how to say 'no' to sex, learn about self and strengths,recognize and deal with stress and self breast exam.CRAFFT AssessmentHas not used alcohol or other drugs.Has not ridden in a CAR driven by someone (including self) who was high orhad been using alcohol or drugs.ScreeningsPrevious Vaccine Reactions: No.Life events information was reviewed-no referral neededTuberculosis Concerns:Negative Tuberculosis Screen Concerns: no TB Risk FactorsHearing Vision Concerns:The caregiver has no concerns about the patient's hearing.The caregiver has no concerns about the patient's vision.Hyperlipidemia Concerns:Positive Hyperlipidemia Screen Concerns: BMI >95%Negative Hyperlipidemia Screen Concerns: no Hyperlipidemia Risk Factors and nohypertensionPrimary Care Review of SystemsObjectiveVitals: 01/21/18 1002BP: 115/69Pulse: 76Weight: (!) 115.3 kgHeight: 167.5 cmBody mass index is 41.1 kg/m .Physical ExamConstitutional: Vital signs are normal. She appears overweight. She appearswell, well-developed and well-nourished. She is active and cooperative.Non-toxic appearance. No distress.HENT:Head: Normocephalic and atraumatic.Right Ear: Tympanic membrane and external ear normal.Left Ear: Tympanic membrane and external ear normal.Nose: Nose normal.Mouth/Throat: Mucous membranes are moist. Dentition is normal. Oropharynx isclear.Eyes: Conjunctivae and EOM are normal. No strabismus. Pupils are equal, round,and reactive to light.Neck: Normal range of motion. Neck supple. Thyroid normal. No neck adenopathy.Cardiovascular: Normal rate, regular rhythm, S1 normal and S2 normal. Pulsesare palpable.No murmur heard.Pulmonary/Chest: Effort normal and breath sounds normal. There is normal airentry. No stridor. No respiratory distress. Air movement is not decreased. Notransmitted upper airway sounds. Exhibits no deformity.Abdominal: Soft. Bowel sounds are normal. She exhibits no distension and nomass. There is no hepatosplenomegaly. There is no tenderness.Musculoskeletal : Normal range of motion. Back: She exhibits no scoliosis.Neurological: She is alert. She has normal strength. She exhibits normal muscletone. Gait normal.Skin: Capillary refill takes less than 3 seconds. No rash noted. No pallor. Opencomedones. Closed comodones (mild on face). Skin is warm and dry.Vitals reviewed: Blood pressure 115/69, pulse 76, height 167.5 cm, weight (!)115.3 kg, last menstrual period 12/12/2017. Normal [facility] Commercial Finance Analyst Authentication Interface Message Text Cherry Aleman is a 17 y.o. female patient.Behavioral/Emotion al Assessment w Score - PHQ-9Performed by: GILA PHILLIPS KAuthorized by: GILA PHILLIPS KPHQ-9Score: 10 (each question scored 0,1,2,3)Severity: Moderate (10-14)See PHQ9 FlowsheetComments: Patient has chronic insomnia and obesity, irregular/heavy periods.Electronically signed by: Gila Phillips DO Normal [facility] Commercial Finance Analyst Authentication Interface Message Text Please let patient know that her blood work has resulted- she does not haveanemia, hypothyroid or diabetes. She does have low vitamin D - she needs totake a daily OTC vitamin supplement. Her cholesterol also needs improvement -her good cholesterol is low and her bad cholesterol is elevated- can be improvedwith increasing vegetables, decreasing fatty/sugar foods and increasingcardiovascular exercise. She may get feel more energized and less tired if takevitamin D and increasing exercise. Normal [facility] PROGRESSon 05-18-2017 [facility] NOTES Normal [facility] Repor ton 05-14-2017 [facility] Report Type: NeurologyDictated by: To be signed by: Transcribed by: ALISSA KYLIETranscribed D/ Dictation D/ Report: TO: Dr. Harlan Escobar [id number], [address] [place] [address] Escobar, Cherry went off of Sprintec and was doing better but she states her headaches have reached a plateau of about two to three per week. At that time she takes the Anaprox followed by the Amjuana and usually it takes the headache away. Occasionally she does have morning headaches so I am prescribing the Imitrex stat dose as well. She had a sleep study but does not know the results. She has been placed on Ambien which definitely helps her sleep. She continues to take the Magnesium and Riboflavin. Unfortunately she has not been able to lose weight, so I told her she may need to count calories on her phone. She does have muscle spasm on examination today so I am going to send a prescription of physical therapy with her to college. If she does miss any classes we may need to use a preventive and Zonisamide would be my choice. Otherwise she will follow-up in two months. Sincerely, Maya Frye D.O. NeurologistCopies to Physicians(s): Normal [facility] Vital Signs Date Time Vital Sign Value Performing Clinician Facility 06-20-2024 11:39-0400 Diastolic blood pressure 76 mm[Hg] Ob Remote Work Phone: [facility] 06-20-2024 11:39-0400 Systolic blood pressure 112 mm[Hg] Ob Remote Work Phone: [facility] 06-17-2024 11:45-0400 Body mass index (BMI) [Ratio] 38.71 kg/m2 Madonna Bartholomew MD Work Phone: [facility] 06-17-2024 11:45-0400 Body weight 107.14 kg Madonna Bartholomew MD Work Phone: [facility] 06-17-2024 11:45-0400 Diastolic blood pressure 79 mm[Hg] Madonna Bartholomew MD Work Phone: [facility] 06-17-2024 11:45-0400 Systolic blood pressure 115 mm[Hg] Madonna Bartholomew MD Work Phone: [facility] 06-10-2024 13:37-0400 Body mass index (BMI) [Ratio] 38.68 kg/m2 Alexis Velazquez MD Work Phone: [facility] 06-10-2024 13:37-0400 Body weight 107.05 kg Alexis Velazquez MD Work Phone: [facility] 06-10-2024 13:37-0400 Diastolic blood pressure 70 mm[Hg] Alexis Velazquez MD Work Phone: [facility] 06-10-2024 13:37-0400 Systolic blood pressure 112 mm[Hg] Alexis Velazquez MD Work Phone: [facility] 06-05-2024 13:27-0400 Body height 170.2 cm Ayaka Baxter MD Work Phone: [facility] 06-05-2024 13:27-0400 Body mass index (BMI) [Ratio] 36.65 kg/m2 Ayaka Baxter MD Work Phone: [facility] 06-05-2024 13:27-0400 Body weight 106.14 kg Ayaka Baxter MD Work Phone: [facility] 06-05-2024 13:27-0400 Diastolic blood pressure 80 mm[Hg] Ayaka Baxter MD Work Phone: [facility] 06-05-2024 13:27-0400 Heart rate 78 /min Ayaka Baxter MD Work Phone: [facility] 06-05-2024 13:27-0400 Systolic blood pressure 138 mm[Hg] Ayaka Baxter MD Work Phone: [facility] 06-02-2024 13:56-0400 Body mass index (BMI) [Ratio] 38.35 kg/m2 Suni Mcmillan MD Work Phone: [facility] 06-02-2024 13:56-0400 Body weight 106.14 kg Suni Mcmillan MD Work Phone: [facility] 06-02-2024 13:56-0400 Diastolic blood pressure 71 mm[Hg] Suni Mcmillan MD Work Phone: [facility] 06-02-2024 13:56-0400 Systolic blood pressure 105 mm[Hg] Suni Mcmillan MD Work Phone: [facility] 05-26-2024 13:42-0400 Diastolic blood pressure 67 mm[Hg] Cherry Solorzano HOME HEALTH TRAVEL PT.CREATIVE WRITING PROFESSOR Work Phone: [facility] 05-26-2024 13:42-0400 Systolic blood pressure 97 mm[Hg] Cherry Haury HOME HEALTH TRAVEL PT.CREATIVE WRITING PROFESSOR Work Phone: [facility] 05-12-2024 13:26-0400 Body mass index (BMI) [Ratio] 38.68 kg/m2 Alexis Velazquez MD Work Phone: [facility] [facility] 05-12-2024 13:26-0400 Body weight 107.05 kg Alexis Velazquez MD Work Phone: [facility] 05-12-2024 13:26-0400 Diastolic blood pressure 60 mm[Hg] Alexis Velazquez MD Work Phone: [facility] 05-12-2024 13:26-0400 Systolic blood pressure 110 mm[Hg] Alexis Velazquez MD Work Phone: [facility] 04-30-2024 14:45-0400 Body mass index (BMI) [Ratio] 38.74 kg/m2 Jany Dewitt MD Work Phone: [facility] 04-30-2024 14:45-0400 Body weight 107.23 kg Jany Dewitt MD Work Phone: [facility] 04-30-2024 14:45-0400 Diastolic blood pressure 74 mm[Hg] Jany Dewitt MD Work Phone: [facility] 04-30-2024 14:45-0400 Systolic blood pressure 122 mm[Hg] Jany Dewitt MD Work Phone: [facility] 04-17-2024 14:38-0400 Body mass index (BMI) [Ratio] 39.17 kg/m2 Cherrymelanie Solorzano HOME HEALTH TRAVEL PT.CREATIVE WRITING PROFESSOR Work Phone: [facility] 04-17-2024 14:38-0400 Body weight 108.41 kg Cherry Hakt HOME HEALTH TRAVEL PT.CREATIVE WRITING PROFESSOR Work Phone: [facility] 04-17-2024 14:38-0400 Diastolic blood pressure 74 mm[Hg] Cherry Haury HOME HEALTH TRAVEL PT.CREATIVE WRITING PROFESSOR Work Phone: [facility] 04-17-2024 14:38-0400 Heart rate 92 /min Cherry Hakt HOME HEALTH TRAVEL PT.CREATIVE WRITING PROFESSOR Work Phone: [facility] 04-17-2024 14:38-0400 Respiratory rate 14 /min Cherry Hakt HOME HEALTH TRAVEL PT.CREATIVE WRITING PROFESSOR Work Phone: [facility] 04-17-2024 14:38-0400 SaO2% (BldA) [Mass fraction] 99 % Cherry Hakt HOME HEALTH TRAVEL PT.CREATIVE WRITING PROFESSOR Work Phone: [facility] 04-17-2024 14:38-0400 Systolic blood pressure 118 mm[Hg] Cherry Hakt HOME HEALTH TRAVEL PT.CREATIVE WRITING PROFESSOR Work Phone: [facility] 04-02-2024 11:06-0400 Body mass index (BMI) [Ratio] 39 kg/m2 Chelo Plotts HOME HEALTH TRAVEL PT.CNM Work Phone: [facility] 04-02-2024 11:06-0400 Body weight 107.96 kg Chelo Plotts HOME HEALTH TRAVEL PT.CNM Work Phone: [facility] 04-02-2024 11:06-0400 Diastolic blood pressure 68 mm[Hg] Chelo Plotts HOME HEALTH TRAVEL PT.CNM Work Phone: [facility] 04-02-2024 11:06-0400 Systolic blood pressure 116 mm[Hg] Chelo Plotts HOME HEALTH TRAVEL PT.CNM Work Phone: [facility] 03-25-2024 09:53-0400 Body mass index (BMI) [Ratio] 38.68 kg/m2 Madonna Bartholomew MD Work Phone: [facility] 03-25-2024 09:53-0400 Body weight 107.05 kg Madonna Bartholomew MD Work Phone: [facility] 03-25-2024 09:53-0400 Diastolic blood pressure 78 mm[Hg] Madonna Bartholomew MD Work Phone: [facility] 03-25-2024 09:53-0400 Systolic blood pressure 111 mm[Hg] Madonna Bartholomew MD Work Phone: [facility] 03-20-2024 13:51-0400 Body height 166.4 cm Cherry Haury HOME HEALTH TRAVEL PT.CREATIVE WRITING PROFESSOR Work Phone: [facility] 03-20-2024 13:51-0400 Body mass index (BMI) [Ratio] 38.18 kg/m2 Cherry Haury HOME HEALTH TRAVEL PT.CREATIVE WRITING PROFESSOR Work Phone: [facility] 03-20-2024 13:51-0400 Body weight 105.69 kg Cherry Haury HOME HEALTH TRAVEL PT.CREATIVE WRITING PROFESSOR Work Phone: [facility] 03-20-2024 13:51-0400 Diastolic blood pressure 68 mm[Hg] Cherry Haury HOME HEALTH TRAVEL PT.CREATIVE WRITING PROFESSOR Work Phone: [facility] 03-20-2024 13:51-0400 Heart rate 96 /min Cherry Haury HOME HEALTH TRAVEL PT.CREATIVE WRITING PROFESSOR Work Phone: [facility] 03-20-2024 13:51-0400 Respiratory rate 12 /min Cherry Haury HOME HEALTH TRAVEL PT.CREATIVE WRITING PROFESSOR Work Phone: [facility] 03-20-2024 13:51-0400 SaO2% (BldA) [Mass fraction] 98 % Cherry Haury HOME HEALTH TRAVEL PT.CREATIVE WRITING PROFESSOR Work Phone: [facility] 03-20-2024 13:51-0400 Systolic blood pressure 116 mm[Hg] Cherry Haury HOME HEALTH TRAVEL PT.CREATIVE WRITING PROFESSOR Work Phone: [facility] 11-13-2023 11:42-0400 Body height 170.2 cm Florida Dickinson MD Work Phone: [facility] 11-13-2023 11:42-0400 Body mass index (BMI) [Ratio] 36.49 kg/m2 Florida Dickinson MD Work Phone: [facility] 11-13-2023 11:42-0400 Body weight 105.69 kg Florida Dickinson MD Work Phone: [facility] 11-13-2023 11:42-0400 Diastolic blood pressure 68 mm[Hg] Florida Dickinson MD Work Phone: [facility] 11-13-2023 11:42-0400 Systolic blood pressure 122 mm[Hg] Florida Dickinson MD Work Phone: [facility] 07-31-2023 16:54-0500 Body height 170.2 cm Scott Whitneyenik HOME HEALTH TRAVEL PT-CREATIVE WRITING PROFESSOR Work Phone: [facility] 07-31-2023 16:54-0500 Body mass index (BMI) [Ratio] 33.67 kg/m2 Scott Kamenik HOME HEALTH TRAVEL PT-CREATIVE WRITING PROFESSOR Work Phone: [facility] 07-31-2023 16:54-0500 Body temperature 97.3 [degF] Scott Whitneyenik HOME HEALTH TRAVEL PT-CREATIVE WRITING PROFESSOR Work Phone: [facility] 07-31-2023 16:54-0500 Body weight 97.52 kg Scott Whitneyenik HOME HEALTH TRAVEL PT-CREATIVE WRITING PROFESSOR Work Phone: [facility] 07-31-2023 16:54-0500 Diastolic blood pressure 78 mm[Hg] Scott Whitneyenievangelista HOME HEALTH TRAVEL PT-CREATIVE WRITING PROFESSOR Work Phone: [facility] 07-31-2023 16:54-0500 Heart rate 93 /min Scott Leal HOME HEALTH TRAVEL PT-CREATIVE WRITING PROFESSOR Work Phone: [facility] 07-31-2023 16:54-0500 Respiratory rate 16 /min Scott Whitneyenievangelista HOME HEALTH TRAVEL PT-CREATIVE WRITING PROFESSOR Work Phone: [facility] 07-31-2023 16:54-0500 SaO2% (BldA) [Mass fraction] 97 % Scott Leal HOME HEALTH TRAVEL PT-CREATIVE WRITING PROFESSOR Work Phone: [facility] 07-31-2023 16:54-0500 Systolic blood pressure 113 mm[Hg] Scott Leal HOME HEALTH TRAVEL PT-CREATIVE WRITING PROFESSOR Work Phone: [facility] 02-02-2023 14:20-0400 Body height 170.2 cm Krupa Tran MD Work Phone: [facility] 02-02-2023 14:20-0400 Body mass index (BMI) [Ratio] 33.25 kg/m2 Krupa Tran MD Work Phone: [facility] 02-02-2023 14:20-0400 Body weight 96.3 kg Krupa Tran MD Work Phone: [facility] 02-02-2023 14:20-0400 Diastolic blood pressure 57 mm[Hg] Krupa Tran MD Work Phone: [facility] 02-02-2023 14:20-0400 Heart rate 93 /min Krupa Tran MD Work Phone: [facility] 02-02-2023 14:20-0400 SaO2% (BldA) [Mass fraction] 96 % Krupa Tran MD Work Phone: [facility] 02-02-2023 14:20-0400 Systolic blood pressure 108 mm[Hg] Krupa Tran MD Work Phone: [facility] 11-03-2022 11:11-0500 Body height 170.18 cm Krupa Tran Work Phone: -[facility] Work Phone: 11-03-2022 11:11-0500 Body mass index (BMI) [Ratio] 33.42 kg/m2 Krupa Tran Work Phone: [facility] Work Phone: 11-03-2022 11:11-0500 Body surface area Derived from formula 2.08 m2 Krupa Tran Work Phone: -Medical [employer] [facility] Work Phone: 11-03-2022 11:11-0500 Body weight 96.79 kg Krupa Tran Work Phone: -Medical [employer] [facility] Work Phone: 11-03-2022 11:11-0500 Diastolic blood pressure 68 mm[Hg] Krupa Tran Work Phone: -Medical [employer] [facility] Work Phone: 11-03-2022 11:11-0500 Heart rate 72 /min Krupa Tran Work Phone: -Medical [employer] [facility] Work Phone: 11-03-2022 11:11-0500 SaO2% (BldA) [Mass fraction] 97 % Krupa Tran Work Phone: [facility] [employer] [facility] Work Phone: 11-03-2022 11:11-0500 Systolic blood pressure 128 mm[Hg] Krupa Tran Work Phone: [employer] [facility] Work Phone: 08-03-2022 09:21-0500 Body height 170.18 cm Krupa Tran Work Phone: [place] [address] [address] Work Phone: 08-03-2022 09:21-0500 Body mass index (BMI) [Ratio] 34.67 kg/m2 Krupa Tran Work Phone: [place] [address] [address] Work Phone: 08-03-2022 09:21-0500 Body surface area Derived from formula 2.11 m2 Krupa Tran Work Phone: [place] [address] [place] Work Phone: 08-03-2022 09:21-0500 Body weight 100.42 kg Krupa T Furness Work Phone: [place] [address] [place] Work Phone: 08-03-2022 09:21-0500 Diastolic blood pressure 78 mm[Hg] Krupa Kian Furness Work Phone: [address] Work Phone: 08-03-2022 09:21-0500 Systolic blood pressure 116 mm[Hg] Krupa T Furness Work Phone: [address] Work Phone: 06-23-2022 14:42-0400 Diastolic blood pressure 74 mm[Hg] Krupa T Furness Work Phone: -[facility] Work Phone: 06-23-2022 14:42-0400 Heart rate 72 /min Krupa T Furness Work Phone: -[facility] Work Phone: 06-23-2022 14:42-0400 Systolic blood pressure 102 mm[Hg] Krupa T Furness Work Phone: -[facility] Work Phone: 06-09-2022 15:06-0400 Body height 170.18 cm Krupa T Furness Work Phone: -[facility] Work Phone: 06-09-2022 15:06-0400 Body mass index (BMI) [Ratio] 34.07 kg/m2 Krupa T Furness Work Phone: -[facility] Work Phone: 06-09-2022 15:06-0400 Body surface area Derived from formula 2.1 m2 Krupa T Furness Work Phone: -[facility] Work Phone: 06-09-2022 15:06-0400 Body weight 98.66 kg Krupa Tran Work Phone: [facility] Work Phone: 06-09-2022 15:06-0400 Diastolic blood pressure 82 mm[Hg] Krupa Tran Work Phone: [facility] Work Phone: 06-09-2022 15:06-0400 Heart rate 75 /min Krupa Tran Work Phone: [facility] Work Phone: 06-09-2022 15:06-0400 Systolic blood pressure 118 mm[Hg] Krupa Tran Work Phone: [facility] Work Phone: 04-20-2022 10:13-0400 Body height 170.18 cm Krupa Tran Work Phone: [facility] Work Phone: 04-20-2022 10:13-0400 Body mass index (BMI) [Ratio] 33.72 kg/m2 Krupa Tran Work Phone: [employer] [facility] Work Phone: 04-20-2022 10:13-0400 Body surface area Derived from formula 2.09 m2 Krupa Tran Work Phone: [facility] Work Phone: 04-20-2022 10:13-0400 Body weight 97.66 kg Krupa Tran Work Phone: [facility] Work Phone: 04-20-2022 10:13-0400 Diastolic blood pressure 80 mm[Hg] Krupa Fuchsess Work Phone: [employer] Work Phone: 04-20-2022 10:13-0400 Heart rate 63 /min Krupa Tran Work Phone: -Medical [employer] [facility] Work Phone: 04-20-2022 10:13-0400 SaO2% (BldA) [Mass fraction] 98 % Krupa Tran Work Phone: -Medical [employer] [facility] Work Phone: 04-20-2022 10:13-0400 Systolic blood pressure 120 mm[Hg] Krupa Tran Work Phone: -Medical [employer] [facility] Work Phone: 01-31-2022 10:47-0400 Body height 170.18 cm Krupa Tran Work Phone: [employer] [facility] Work Phone: 01-31-2022 10:47-0400 Body mass index (BMI) [Ratio] 34.29 kg/m2 Krupa Tran Work Phone: [employer] [facility] Work Phone: 01-31-2022 10:47-0400 Body surface area Derived from formula 2.1 m2 Krupa Tran Work Phone: [employer] [facility] Work Phone: 01-31-2022 10:47-0400 Body weight 99.3 kg Krupa Tran Work Phone: [facility] Work Phone: 01-31-2022 10:47-0400 Diastolic blood pressure 72 mm[Hg] Krupamathew Tran Work Phone: [facility] Work Phone: 01-31-2022 10:47-0400 Systolic blood pressure 116 mm[Hg] Krupa Fuchsess Work Phone: [facility] Work Phone: 01-11-2022 15:25-0400 Body height 170.18 cm Krupa T Furness Work Phone: [facility] Work Phone: 01-11-2022 15:25-0400 Diastolic blood pressure 78 mm[Hg] Krupa T Furness Work Phone: [place] [address] [place] Work Phone: 01-11-2022 15:25-0400 Systolic blood pressure 120 mm[Hg] Krupa T Furness Work Phone: [place] [address] [place] Work Phone: 12-28-2021 15:42-0400 Body height 170.18 cm Krupa T Furness Work Phone: [place] [address] [place] Work Phone: 12-28-2021 15:42-0400 Body mass index (BMI) [Ratio] 37.98 kg/m2 Krupa T Furness Work Phone: [place] [address] [place] Work Phone: 12-28-2021 15:42-0400 Body surface area Derived from formula 2.19 m2 Krupa T Furness Work Phone: [place] [address] [place] Work Phone: 12-28-2021 15:42-0400 Body weight 110 kg Krupa T Furness Work Phone: [place] [address] [place] Work Phone: 12-28-2021 15:42-0400 Diastolic blood pressure 74 mm[Hg] Krupa T Furness Work Phone: [facility] [place] Work Phone: 12-28-2021 15:42-0400 Systolic blood pressure 108 mm[Hg] Krupa T Furness Work Phone: [facility] [place] Work Phone: 12-21-2021 15:36-0400 Body height 170.18 cm Krupa Kian Furness Work Phone: [place] [address] [place] Work Phone: 12-21-2021 15:36-0400 Body mass index (BMI) [Ratio] 37.29 kg/m2 Krupa T Furness Work Phone: [place] [address] [place] Work Phone: 12-21-2021 15:36-0400 Body surface area Derived from formula 2.18 m2 Krupa T Furness Work Phone: [place] [address] [place] Work Phone: 12-21-2021 15:36-0400 Body weight 108 kg Krupa Kian Furness Work Phone: [place] [address] [place] Work Phone: 12-21-2021 15:36-0400 Diastolic blood pressure 76 mm[Hg] Krupa T Furness Work Phone: [place] [address] [place] Work Phone: 12-21-2021 15:36-0400 Systolic blood pressure 112 mm[Hg] Krupa T Furness Work Phone: [place] [address] [place] Work Phone: 12-14-2021 10:54-0400 Body height 170.18 cm Krupa T Furness Work Phone: [place] [address] [place] Work Phone: 12-14-2021 10:54-0400 Body mass index (BMI) [Ratio] 37.64 kg/m2 Krupa T Furness Work Phone: [place] [address] [place] Work Phone: 12-14-2021 10:54-0400 Body surface area Derived from formula 2.19 m2 Krupa T Furness Work Phone: [place] [address] [place] Work Phone: 12-14-2021 10:54-0400 Body weight 109 kg Krupa T Furness Work Phone: [place] [address] [place] Work Phone: 12-14-2021 10:54-0400 Diastolic blood pressure 78 mm[Hg] Krupa T Furness Work Phone: [place] [address] [place] Work Phone: 12-14-2021 10:54-0400 Systolic blood pressure 116 mm[Hg] Krupa T Furness Work Phone: [place] [address] [place] Work Phone: 11-30-2021 15:40-0400 Body height 170.18 cm Krupa T Furness Work Phone: [place] [address] [place] Work Phone: 11-30-2021 15:40-0400 Body mass index (BMI) [Ratio] 37.57 kg/m2 Krupa Kian Furness Work Phone: [place] [address] [place] Work Phone: 11-30-2021 15:40-0400 Body surface area Derived from formula 2.18 m2 Krupa T Furness Work Phone: [place] [address] [place] Work Phone: 11-30-2021 15:40-0400 Body weight 108.8 kg Krupa T Furness Work Phone: [place] [address] [place] Work Phone: 11-30-2021 15:40-0400 Diastolic blood pressure 70 mm[Hg] Krupa T Furness Work Phone: [place] [address] [place] Work Phone: 11-30-2021 15:40-0400 Systolic blood pressure 118 mm[Hg] Krupa T Furness Work Phone: [place] [address] [place] Work Phone: 11-16-2021 15:44-0400 Body height 170.18 cm Krupa T Furness Work Phone: [place] [address] [place] Work Phone: 11-16-2021 15:44-0400 Body mass index (BMI) [Ratio] 37.49 kg/m2 Krupa T Furness Work Phone: [place] [address] [place] Work Phone: 11-16-2021 15:44-0400 Body surface area Derived from formula 2.18 m2 Krupamathew Tran Work Phone: [place] [address] [place] Work Phone: 11-16-2021 15:44-0400 Body weight 108.58 kg Krupamathew Tran Work Phone: [place] [address] [place] Work Phone: 11-16-2021 15:44-0400 Diastolic blood pressure 68 mm[Hg] Krupamathew Tran Work Phone: [place] [address] [place] Work Phone: 11-16-2021 15:44-0400 Systolic blood pressure 118 mm[Hg] Krupa T Furnjumana Work Phone: [place] [address] [place] Work Phone: 11-02-2021 15:44-0500 Body height 170.18 cm Krupa T Furness Work Phone: [place] [address] [place] Work Phone: 11-02-2021 15:44-0500 Body mass index (BMI) [Ratio] 38.12 kg/m2 Krupa T Furness Work Phone: [place] [address] [place] Work Phone: 11-02-2021 15:44-0500 Body surface area Derived from formula 2.2 m2 Krupamathew Fuchsess Work Phone: [place] [address] [place] Work Phone: 11-02-2021 15:44-0500 Body weight 110.4 kg Krupa T Furness Work Phone: [place] [address] [place] Work Phone: 11-02-2021 15:44-0500 Diastolic blood pressure 62 mm[Hg] Krupa T Furness Work Phone: [place] [address] [place] Work Phone: 11-02-2021 15:44-0500 Systolic blood pressure 100 mm[Hg] Krupa T Furnjumana Work Phone: [place] [address] [place] Work Phone: 10-31-2021 15:37-0500 Body height 170.18 cm Krupamathew Tran Work Phone: [place] [address] [place] Work Phone: 10-31-2021 15:37-0500 Body mass index (BMI) [Ratio] 37.66 kg/m2 Krupamathew Tran Work Phone: [place] [address] [place] Work Phone: 10-31-2021 15:37-0500 Body surface area Derived from formula 2.19 m2 Krupamathew Tran Work Phone: [facility] [address] [place] Work Phone: 10-31-2021 15:37-0500 Body weight 109.06 kg Krupa T Furness [facility] [place] [address] [place] Work Phone: 10-31-2021 15:37-0500 Diastolic blood pressure 64 mm[Hg] Krupa T Furness Work Phone: [place] [address] [place] Work Phone: 10-31-2021 15:37-0500 Heart rate 99 /min Krupamathew Tran Work Phone: [facility] Work Phone: 10-31-2021 15:37-0500 SaO2% (BldA) [Mass fraction] 98 % Krupamathew Tran Work Phone: [employer] [facility] Work Phone: 10-31-2021 15:37-0500 Systolic blood pressure 104 mm[Hg] Krupamathew Tran Work Phone: [employer] [facility] Work Phone: 10-04-2021 15:57-0500 Body height 170.18 cm Krupamathew Tran Work Phone: [employer] [facility] Work Phone: 10-04-2021 15:57-0500 Body mass index (BMI) [Ratio] 37.9 kg/m2 Krupamathew Tran Work Phone: [employer] [facility] Work Phone: 10-04-2021 15:57-0500 Body surface area Derived from formula 2.19 m2 Krupamathew Tran Work Phone: [employer] [facility] Work Phone: 10-04-2021 15:57-0500 Body weight 109.77 kg Krupamathew Tran Work Phone: [facility] Work Phone: 09-05-2021 13:22-0500 Body height 170.18 cm Krupamathew Fuchsess Work Phone: [employer] Work Phone: 09-05-2021 13:22-0500 Body mass index (BMI) [Ratio] 37.43 kg/m2 Krupa T Furness Work Phone: [employer] [facility] Work Phone: 09-05-2021 13:22-0500 Body surface area Derived from formula 2.18 m2 Krupamathew Tran Work Phone: [place] [address] [place] Work Phone: 09-05-2021 13:22-0500 Body temperature 205.52 [degF] Krupamathew Tran Work Phone: [place] [address] [place] Work Phone: 09-05-2021 13:22-0500 Body weight 108.4 kg Krupamathew Tran Work Phone: [place] [address] [place] Work Phone: 09-05-2021 13:22-0500 Diastolic blood pressure 74 mm[Hg] Krupamathew Tran Work Phone: [place] [address] [place] Work Phone: 09-05-2021 13:22-0500 Systolic blood pressure 110 mm[Hg] Krupamathew Tran Work Phone: [place] [address] [place] Work Phone: 08-15-2021 15:38-0500 Body height 170.18 cm Krupamathew Tran Work Phone: [place] [address] [place] Work Phone: 08-15-2021 15:38-0500 Body mass index (BMI) [Ratio] 38.36 kg/m2 Krupamathew Tran Work Phone: [place] [address] [place] Work Phone: 08-15-2021 15:38-0500 Body surface area Derived from formula 2.2 m2 Krupamathew Tran Work Phone: [place] [address] [place] Work Phone: 08-15-2021 15:38-0500 Body temperature 206.42 [degF] Krupa Kian Furness Work Phone: [place] [address] [place] Work Phone: 08-15-2021 15:38-0500 Body weight 111.1 kg Krupa T Furness Work Phone: [place] [address] [place] Work Phone: 08-15-2021 15:38-0500 Diastolic blood pressure 76 mm[Hg] Krupa T Furness Work Phone: [place] [address] [place] Work Phone: 08-15-2021 15:38-0500 Systolic blood pressure 108 mm[Hg] Krupa T Furness Work Phone: [place] [address] [place] Work Phone: 07-18-2021 15:46-0500 Body height 170.18 cm Krupa T Furness Work Phone: [place] [address] [place] Work Phone: 07-18-2021 15:46-0500 Body mass index (BMI) [Ratio] 38.91 kg/m2 Krupa T Furness Work Phone: [place] [address] [place] Work Phone: 07-18-2021 15:46-0500 Body surface area Derived from formula 2.22 m2 Krupa T Furness Work Phone: [place] [address] [place] Work Phone: 07-18-2021 15:46-0500 Body temperature 206.78 [degF] Krupa T Furness Work Phone: [place] [address] [place] Work Phone: 07-18-2021 15:46-0500 Body weight 112.7 kg Krupa T Furness Work Phone: [place] [address] [place] Work Phone: 07-18-2021 15:46-0500 Diastolic blood pressure 76 mm[Hg] Krupa T Furness Work Phone: [place] [address] [place] Work Phone: 07-18-2021 15:46-0500 Systolic blood pressure 104 mm[Hg] Krupa Tran Work Phone: [place] [address] [place] Work Phone: 06-24-2021 15:47-0400 Body height 170.18 cm Krupa Tran Work Phone: [place] [address] [place] Work Phone: 06-24-2021 15:47-0400 Body mass index (BMI) [Ratio] 40.05 kg/m2 Krupa Tran Work Phone: [place] [address] [place] Work Phone: 06-24-2021 15:47-0400 Body surface area Derived from formula 2.24 m2 Krupa Tran Work Phone: [place] [address] [place] Work Phone: 06-24-2021 15:47-0400 Body temperature 208.4 [degF] Krupa Tran Work Phone: [place] [address] [place] Work Phone: 06-24-2021 15:47-0400 Body weight 116 kg Krupa Tran Work Phone: [place] [address] [place] Work Phone: 06-24-2021 15:47-0400 Diastolic blood pressure 76 mm[Hg] Krupa Tran Work Phone: [place] [address] [place] Work Phone: 06-24-2021 15:47-0400 Systolic blood pressure 102 mm[Hg] Krupamathew Fuchsess Work Phone: [place] [address] [place] Work Phone: 03-02-2020 16:00-0400 Body Temperature 208.04 [degF] Krupa Tran [facility] Work Phone: 03-02-2020 16:00-0400 Body weight 112.76 kg Krupa Tran [facility] Work Phone: 03-02-2020 16:00-0400 BP Diastolic 76 mm[Hg] Krupa Tran [facility] Work Phone: 03-02-2020 16:00-0400 BP Systolic 117 mm[Hg] Krupa Tran [facility] Work Phone: 03-02-2020 16:00-0400 Pulse (Heart Rate) 75 /min Krupa Tran [facility] Work Phone: 03-02-2020 16:00-0400 Respiratory Rate 16 /min Krupa Tran [facility] Work Phone: 02-13-2020 09:56-0400 BMI (Body Mass Index) 38.43 kg/m2 Guillermo Chase KD-DQOEE-[facility] Work Phone: 02-13-2020 09:56-0400 Body Temperature 96.8 [degF] Guillermo Chase HI-LPMOV-Esgqz[facility] est Work Phone: 02-13-2020 09:56-0400 Body weight 111.3 kg Guillermo Chase IR-OCWWO-[address] Work Phone: 02-13-2020 09:56-0400 BP Diastolic 75 mm[Hg] Guillermo Chase HL-LELEA-[address] Work Phone: Comment on above: Location: L[place]; Position: Sitting 02-13-2020 09:56-0400 BP Systolic 107 mm[Hg] Guillermo Chase EI-VHWIH-[address] Work Phone: Comment on above: Location: [place]; Position: Sitting 02-13-2020 09:56-0400 BSA (Body Surface Area) 2.21 m2 Guillermo OR[place]E-BZFQH-[facility] Work Phone: 02-13-2020 09:56-0400 Height 170.18 cm Guillermo [place]-[facility] Work Phone: 02-13-2020 09:56-0400 Pulse (Heart Rate) 88 /min Guillermo [facility] Work Phone: 02-13-2020 09:56-0400 Pulse Oximetry 97 % Guillermo [place]-[facility] Work Phone: 02-13-2020 09:56-0400 Respiratory Rate 16 /min Guillermo [place] Work Phone: 02-02-2020 13:30-0400 BMI (Body Mass Index) 37.92 kg/m2 Krupa Tran [facility] Work Phone: 02-02-2020 13:30-0400 Body Temperature 98.4 [degF] Krupa Tran -[facility] Work Phone: 02-02-2020 13:30-0400 Body weight 109.83 kg Krupa Tran [facility] Work Phone: 02-02-2020 13:30-0400 BP Diastolic 70 mm[Hg] Krupa Tran -[facility] Work Phone: 02-02-2020 13:30-0400 BP Systolic 102 mm[Hg] Krupa Tran -[facility] Work Phone: 02-02-2020 13:30-0400 BSA (Body Surface Area) 2.19 m2 Krupa Tran [facility] Work Phone: 02-02-2020 13:30-0400 Height 170.18 cm Krupa Tran -[facility] Work Phone: 02-02-2020 13:30-0400 Pulse (Heart Rate) 76 /min Krupa Tran -[facility] Work Phone: 02-02-2020 13:30-0400 Pulse Oximetry 98 % Krupa Fuchsjumana -Medical [facility] Work Phone: 11-04-2019 15:54-0500 BMI (Body Mass Index) 38.38 kg/m2 [facility] Work Phone: 11-04-2019 15:54-0500 Body weight 111.15 kg [facility] Work Phone: 11-04-2019 15:54-0500 BP Diastolic 70 mm[Hg] [facility] Work Phone: Comment on above: Location: [facility]; 11-04-2019 15:54-0500 BP Systolic 110 mm[Hg] [facility] Work Phone: Comment on above: Location: [facility]; 11-04-2019 15:54-0500 BSA (Body Surface Area) 2.2 m2 [facility] Work Phone: 11-04-2019 15:54-0500 Height 170.18 cm [facility] Work Phone: 11-04-2019 15:54-0500 Pulse (Heart Rate) 98 /min [facility] Work Phone: Encounters Encounter Date Encounter Type Care Provider Facility Start: 06-20-2024 End: 06-20-2024 ambulatory ALEXIS VELAZQUEZ Facility:[facility] Start: 06-20-2024 End: 06-20-2024 Patient encounter procedure Receiving Coordinator [facility] [employer] [employer] Work Phone: Maternal Medicine Comment on above: Encounter for ultras ound to check growth (Primary Dx); Obesity affecting in third trimester, unspecified obesity type; 39 weeks gestation of ; Suspected anomaly, antepartum, single or unspecified fetus Start: 06-17-2024 End: 06-17-2024 ambulatory MADONNA BARTHOLOMEW Facility:[facility] Start: 06-17-2024 End: 06-17-2024 Patient encounter procedure Madonna Bartholomew MD Work Phone: OB/Gynecology Comment on above: 39 weeks gestation o f (Primary Dx); Encounter for supervision of high risk in third trimester, antepartum; Obesity affecting in third trimester, unspecified obesity type Start: 06-10-2024 End: 06-10-2024 Patient encounter procedure Alexis Velazquez MD Work Phone: OB/Gynecology Comment on above: Encounter for superv ision of high risk in third trimester, antepartum (Primary Dx); Obesity affecting in third trimester, unspecified obesity type; Anemia complicating , third trimester; 38 weeks gestation of ; Need for influenza vaccination; COVID-19 vaccine administered Start: 06-10-2024 End: 06-10-2024 ambulatory ALEXIS VELAZQUEZ Facility:[facility] Start: 06-05-2024 End: 06-05-2024 ambulatory AYAKA BAXTER [place] [facility] Start: 06-05-2024 End: 06-05-2024 Office outpatient visit 15 minutes Ayaka Baxter MD Work Phone: [place] Comment on above: Dysfunction of both eustachian tubes (Primary Dx) Start: 06-02-2024 End: 06-02-2024 ambulatory SUNI MCMILLAN Facility:[facility] Start: 06-02-2024 End: 06-02-2024 Patient encounter procedure Suni Mcmillan MD Work Phone: OB/Gynecology Comment on above: Obesity affecting pr egnancy in third trimester, unspecified obesity type (Primary Dx); Encounter for supervision of high risk in third trimester, antepartum; 37 weeks gestation of Start: 05-26-2024 End: 05-26-2024 ambulatory ELIZABETH ALTMAN Facility:[facility] Start: 05-26-2024 End: 05-26-2024 Patient encounter procedure Cherry Solorzano APRN.CNP Work Phone: OB/Gynecology Comment on above: Encounter for superv ision of high risk in third trimester, antepartum (Primary Dx); 36 weeks gestation of ; Anemia complicating , third trimester; Obesity affecting in third trimester, unspecified obesity type; Supervision of high risk in third trimester Start: 05-12-2024 End: 05-12-2024 Patient encounter procedure Alexis Velazquez MD Work Phone: OB/Gynecology Comment on above: Encounter for superv ision of high risk in third trimester, antepartum (Primary Dx); 34 weeks gestation of ; Obesity affecting in third trimester, unspecified obesity type; Anemia complicating , third trimester Start: 05-12-2024 End: 05-12-2024 ambulatory ALEXIS VELAZQUEZ Facility:[facility] Start: 04-30-2024 End: 04-30-2024 ambulatory JANY DEWITT Facility:[facility] Start: 04-30-2024 End: 04-30-2024 Patient encounter procedure Jany Dewitt MD Work Phone: OB/Gynecology Comment on above: Obesity affecting pr egnancy in third trimester, unspecified obesity type (Primary Dx); Anemia complicating , third trimester; Encounter for supervision of high risk in third trimester, antepartum; 32 weeks gestation of Encounter for anatomic survey (Primary Dx); 32 weeks gestation of ; Obesity affecting in second trimester, unspecified obesity type; with care elsewhere in third trimester Start: 04-29-2024 End: 04-29-2024 Telephone encounter Alexis Velazquez MD Work Phone: OB/Gynecology Start: 04-17-2024 End: 04-17-2024 ambulatory CHERRY SOLORZANO Facility:[facility] Start: 04-17-2024 End: 04-17-2024 Patient encounter procedure Cherry Solorzano APRN.CREATIVE WRITING PROFESSOR Work Phone: OB/Gynecology Comment on above: Encounter for superv ision of high risk in third trimester, antepartum (Primary Dx); 30 weeks gestation of ; Anemia complicating , third trimester; Obesity affecting in third trimester, unspecified obesity type; Dizziness Start: 04-17-2024 End: 04-17-2024 ambulatory [facility] Start: 04-09-2024 End: 04-09-2024 [facility] Start: 04-02-2024 End: 04-02-2024 Patient encounter procedure Chelo Porter APRN.CNM Work Phone: OB/Gynecology Comment on above: History of depressio n (Primary Dx); 28 weeks gestation of ; Supervision of high risk in third trimester; Obesity affecting in third trimester, unspecified obesity type; Need for vaccination Start: 04-02-2024 End: 04-02-2024 ambulatory CHELO PORTER Facility:[facility] Start: 03-28-2024 End: 03-28-2024 [facility] Start: 03-25-2024 End: 03-25-2024 ambulatory MADONNA BARTHOLOMEW Facility:[facility] Start: 03-25-2024 End: 03-25-2024 Patient encounter procedure Madonna Bartholomew MD Work Phone: OB/Gynecology Comment on above: 27 weeks gestation o f (Primary Dx); Encounter for supervision of high risk in second trimester, antepartum; Obesity affecting in second trimester, unspecified obesity type; Decreased movements in second trimester, single or unspecified fetus Start: 03-20-2024 Telephone encounter Cherry angeles APRN.CREATIVE WRITING PROFESSOR Work Phone: OB/Gynecology Comment on above: Orders Start: 03-20-2024 End: 03-20-2024 ambulatory CHERRY SOLORZANO Facility:[facility] Start: 03-20-2024 End: 03-20-2024 Patient encounter procedure Cherry Solorzano APRN.CREATIVE WRITING PROFESSOR Work Phone: OB/Gynecology Comment on above: Encounter for superv ision of high risk in second trimester, antepartum (Primary Dx); 26 weeks gestation of ; Obesity affecting in second trimester, unspecified obesity type; with care elsewhere in second trimester; History of cholestasis during ; History of depression; Constipation during in second trimester; Stress incontinence, female; Uncertain dates, antepartum, second trimester Start: 02-11-2024 End: 02-11-2024 ambulatory [facility] Start: 02-11-2024 End: 02-11-2024 Subsequent hospital visit by physician Bacilio Sheldon [facility] Comment on above: 16 weeks gestation o f ([facility]) Start: 02-11-2024 End: 02-11-2024 ambulatory [facility] Start: 01-09-2024 End: 01-09-2024 ambulatory [facility] Start: 12-12-2023 End: 12-13-2023 ambulatory KRUPA Cruz [facility] Start: 12-12-2023 End: 12-12-2023 ambulatory [facility] Start: 11-13-2023 End: 11-13-2023 Office outpatient visit 15 minutes Florida Dickinson MD Work Phone: [facility] Comment on above: Amenorrhea (Primary Dx); test positive Start: 11-13-2023 End: 11-13-2023 ambulatory [facility] Start: 09-06-2023 End: 09-06-2023 ambulatory [facility] Start: 07-31-2023 End: 07-31-2023 Patient encounter procedure Scott Leal [employer] PT-CREATIVE WRITING PROFESSOR Work Phone: [facility] Comment on above: Acute bronchitis, un specified organism (Primary Dx) Start: 07-31-2023 End: 07-31-2023 ambulatory KRUPA Cruz [facility] Start: 07-25-2023 End: 07-26-2023 ambulatory [facility] Start: 07-25-2023 End: 07-25-2023 Subsequent hospital visit by physician Gage [id number] [employer] [facility] Guillermo Comment on above: Migraine without aur a and without status migrainosus, not intractable Start: 07-12-2023 End: 07-12-2023 ambulatory [facility] Start: 02-23-[address] Krupa Dan Facility:[id number] Start: 02-05-[address] Krupa Dan Facility:[id number] Start: 02-02-2023 End: 02-03-2023 ambulatory KRUPA TRAN [facility] Start: 02-02-2023 End: 02-02-2023 Office outpatient visit 25 minutes Krupa Tran MD Work Phone: [facility] Comment on above: Right upper quadrant abdominal pain (Primary Dx); Fatigue, unspecified type Start: 11-03-[address] Krupa Dan Facility:[id number] Start: 11-03-2022 Office outpatient vi sit 15 minutes Krupa Tran Work Phone: [facility] Work Phone: Start: 08-03-[address] Krupa Dan Facility:[facility] Start: 08-03-2022 Periodic preventive med est patient 18-39 yrs Krupa Tran Work Phone: [address] Work Phone: Start: 06-23-[address] Krupa Dan Facility:[id number] Start: 06-23-2022 Office outpatient vi sit 15 minutes Krupa Tran Work Phone: [facility] Work Phone: Start: 06-14-[address] Krupa Dan Facility:[id number] Start: 06-09-[address] Krupa Dan Facility:[id number] Start: 06-02-2022 AUDIT Krupa denney Work Phone: [place] Work Phone: Start: 05-09-2022 Chart Update Krupa denney Work Phone: [facility] Work Phone: Start: 05-03-[address] Krupa Dan Facility:[id number] Start: 04-28-2022 Chart Update Krupa denney Work Phone: -[facility] Work Phone: Start: 04-27-[address] Krupa Dugganjumana Facility:[id number] Start: 04-20-[address] Krupa [place] Facility:[id number] Start: 04-20-2022 Office outpatient vi sit 25 minutes Krupa Kian Fuchsjumana Work Phone: -[facility] Work Phone: Start: 01-31-2022 Patient encounter procedure Krupa Kian [place] Work Phone: [facility] [address] Work Phone: Start: 01-31-2022 ambulatory MD [address] [facility] Facility:[id number] Start: 01-16-2022 AUDIT Krupa Kian Shila denney Work Phone: [employer] [address] Work Phone: Start: 01-11-2022 Office outpatient vi sit 10 minutes Krupa Cruz Furnjumana Work Phone: [facility] [address] Work Phone: Start: 01-11-[address] Krupa [place] Facility:[id number] Start: 12-28-2021 Office outpatient vi sit 10 minutes Krupa Kian Furnjumana Work Phone: [facility] [address] Work Phone: Start: 12-28-[address] Krupa [place] Facility:[id number] Start: 12-21-2021 Office outpatient vi sit 10 minutes Krupa Cruz Furnjumana Work Phone: [facility] [address] Work Phone: Start: 12-21-[address] Krupa [place] Facility:[id number] Start: 12-14-[address] Krupa [place] Facility:[id number] Start: 11-30-2021 Office outpatient vi sit 15 minutes Krupa Fuchsjumana Work Phone: [facility] [address] [address] Work Phone: Start: 11-30-2021 ambulatory MD [address] [facility] Facility:[id number] Start: 11-16-2021 Office outpatient vi sit 10 minutes Krupa Tran Work Phone: [facility] [address] [address] Work Phone: Start: 11-16-[address] Krupa Turk see F[place]ess Facility:[id number] Start: 10-04-2021 Office outpatient vi sit 10 minutes Krupa Cruz Furnjumana Work Phone: [facility] [address] [address] Work Phone: Start: 09-12-2021 AUDIT Krupa Fuchs ess Work Phone: [facility] [address] [address] Work Phone: Start: 09-06-2021 Chart Update Krupa Fuchs ess Work Phone: [facility] [address] [address] Work Phone: Start: 09-05-2021 Office outpatient vi sit 10 minutes Krupa Tran Work Phone: [facility] [address] [address] Work Phone: Start: 08-18-2021 Rx Renewal Krupa Fuchs ess Work Phone: [facility] [address] [address] Work Phone: Start: 08-15-2021 Office outpatient vi sit 10 minutes Krupa Cruz Furnjumana Work Phone: [facility] [address] [address] Work Phone: Start: 08-05-2021 Patient encounter procedure Krupa Tran Work Phone: [facility] Work Phone: Start: 07-20-2021 Chart Update Krupa Fuchs ess Work Phone: [facility] Work Phone: Start: 07-19-2021 Rx Renewal Krupa denney Work Phone: [facility] [address] [address] Work Phone: Start: 07-19-2021 Chart Update Krupa denney Work Phone: [facility] [address] [address] Work Phone: Start: 07-18-2021 Office outpatient vi sit 15 minutes Krupa Tran Work Phone: [place] [address] [address] Work Phone: Start: 07-11-2021 AUDIT Krupa Fuchs ess Work Phone: [facility] [address] [address] Work Phone: Start: 06-24-2021 Office outpatient vi sit 15 minutes Krupa Tran Work Phone: [place] [address] [address] Work Phone: Start: 03-02-2020 Patient encounter procedure Krupamathew Tran [facility] Work Phone: Start: 02-13-2020 Patient encounter procedure Guillermo [facility] Work Phone: Start: 02-02-2020 Patient encounter procedure Krupamathew Tran [facility] Work Phone: Start: 12-25-2019 Patient encounter procedure [facility] [place] Work Phone: Start: 12-17-2019 Patient encounter procedure [facility] [place] Work Phone: Start: 12-11-2019 Patient encounter procedure [facility] [place] Work Phone: Start: 12-08-2019 Patient encounter procedure [facility] [place] Work Phone: Start: 12-05-2019 Patient encounter procedure [facility] [place] Work Phone: Start: 12-03-2019 Patient encounter procedure [facility] [place] Work Phone: Start: 12-01-2019 Patient encounter procedure [facility] [place] Work Phone: Start: 11-28-2019 Patient encounter procedure [facility] [place] Work Phone: Start: 11-26-2019 Patient encounter procedure [place] [place] Work Phone: Start: 11-25-2019 Patient encounter procedure [place] [facility] [place] Work Phone: Start: 11-21-2019 Patient encounter procedure [facility] [place] Work Phone: Start: 11-20-2019 Patient encounter procedure [place] [facility] [place] Work Phone: Start: 11-04-2019 Patient encounter procedure [place] [facility] [place] Work Phone: Start: 09-29-2019 Patient encounter procedure [place] [facility] [place] Work Phone: Start: 01-23-2018 End: 01-23-2018 Ambulatory [facility] Start: 01-21-2018 End: 01-21-2018 Ambulatory [facility] Start: 05-18-2017 Ambulatory [facility] Start: 03-26-2017 End: 03-27-2017 [facility]ulatory [facility] Encounter for gynecological examination (general) (routine) without abnormal findings Krupa Tran Work Phone: [address] Work Phone: Comment on above: 06/02/2019: NIL; 08/03/2022; NIL2018: NIL; Patient encounter procedure Krupa T Chelsea Work Phone: [address] Work Phone: Procedures Date Procedure Procedure Detail Performing Clinician Start: 06-20-2024 Us preg uterus after 1st trimest 09/03 gestation Alexis Velazquez MD Work Phone: Start: 06-17-2024 Urnls dip stick/tabl et rgnt non-auto w/o micrscp Madonna Bartholomew MD Work Phone: Start: 06-10-2024 PFIZER-BIONTECH COVI D-19 VACCINE AGE 12+ YR (COMIRNATY) Alexis Velazquez MD Work Phone: Start: 06-10-2024 Urnls dip stick/tabl et rgnt non-auto w/o micrscp Alexis Velazquez MD Work Phone: Start: 06-02-2024 Urnls dip stick/tabl et rgnt non-auto w/o micrscp Suni Mcmillan MD Work Phone: Start: 05-26-2024 Urnls dip stick/tabl et rgnt non-auto w/o micrscp Cherry Rashad DOYLECREATIVE WRITING PROFESSOR Work Phone: Start: 05-12-2024 Urnls dip stick/tabl et rgnt non-auto w/o micrscp Alexis Velazquez MD Work Phone: Start: 04-30-2024 Us preg uterus after 1st trimest 09/03 gestation Madonna Bartholomew MD Work Phone: Start: 12-12-2023 CBC ANEMIA PANEL WIT H REFLEX, KRUPA TRAN Start: 12-12-2023 CBC panel - Blood by Automated count KRUPA TRAN Start: 12-12-2023 HEPATITIS B SURFACE ANTIGEN KRUPA TRAN Start: 12-12-2023 HIV 1/2 ANTIGEN/ANTI BODY SCREEN WIH REFLEX TO CONFIRMATION KRUPA TRAN Start: 12-12-2023 REFLEX ADDED, ANEMIA PANEL KRUPA TRAN Start: 12-12-2023 RUBELLA ANTIBODY, IGG P CASSIE TRAN Start: 12-12-2023 SYPHILIS SCREENING W ITH REFLEX KRUPA TRAN Start: 12-12-2023 TYPE AND SCREEN KRUPA TRAN Start: 12-12-2023 Bacteria identified in Urine by Culture IMANI ABAD Start: 12-12-2023 C. TRACHOMATIS + N. GONORRHOEAE, AMPLIFIED IMANI ABAD Start: 12-12-2023 GYNECOLOGIC CYTOLOGY CONSULTATION IMANI ABAD Start: 12-12-2023 Microscopic observat ion [Identifier] in Cervix by Cyto stain Bacilio 1 Start: 11-13-2023 US OB TRANSVAGINAL MIKE ABAD Start: 11-13-2023 POCT , URINE B RAMANAY DONTAE Start: 11-13-2023 Us preg uterus real time w/image dcmtn transvag Florida Dickinson MD Work Phone: Start: 11-13-2023 Urine test visual color cmprsn meths Florida Dickinson MD Work Phone: Start: 07-31-2023 POCT RESPIRATORY SYN CYTIAL VIRUS [place] DICKINSON Start: 07-31-2023 POCT BD VERITOR TRIPLEX AG [place] DICKINSON Start: 07-31-2023 POCT GROUP A STREPTO COCCUS, PCR [place] DICKINSON Start: 07-25-2023 AUTONOMIC TESTING RUSSELL TRAN Start: 07-25-2023 AUTONOMIC TESTING Imani Abad DO Work Phone: Start: 07-12-2023 AMB REFERRAL TO NEUROLOGY IMANI ABAD Start: 02-02-2023 CBC panel - Blood by Automated count KRUPA TRAN Start: 02-02-2023 Comprehensive metabo lic 2000 panel - Serum or Plasma KRUPA TRAN Start: 02-02-2023 Lipase [Enzymatic activity/volume] in Serum or Plasma KRUPA TRAN Start: 02-02-2023 Thyrotropin [Units/v olume] in Serum or Plasma KRUPA TRAN Start: 08-03-2022 Microscopic observat ion [Identifier] in Cervix by Cyto stain [facility] Start: 03-12-2020 Injection of steroid into joint Krupa Tran Work Phone: Comment on above: Rt SIJ; Excisional biopsy of breast Krupa Tran Work Phone: Extraction of wisdom tooth P cassie Tran Work Phone: Insertion of intraut erine contraceptive device Sup[facility] [place] Comment on above: 04/03/2018; Operative procedure on knee [place] Plan of Treatment Date Care Activity Detail Author Start: 2048 Zoster Vaccines (1 o f 2) Zoster Vaccines (1 of 2) [facility] Start: 04-02-2034 DTaP/Tdap/Td Vaccine s (9 - Td or Tdap) DTaP/Tdap/Td Vaccines (9 - Td or Tdap) [facility] Start: 04-02-2034 Urine microalbumin profile DTaP,Tdap,Td Vaccine (9 - Td or Tdap) [facility] Start: 12-15-2031 DTaP/Tdap/Td Vaccine s (8 - Td or Tdap) DTaP/Tdap/Td Vaccines (8 - Td or Tdap) [facility] Start: 12-15-2031 Urine microalbumin profile DTaP,Tdap,Td Vaccine (8 - Td or Tdap) [facility] Start: 12-11-2026 Screening for malign ant neoplasm of cervix [facility] Start: 08-03-2025 Screening for malign ant neoplasm of cervix [facility] Start: 09-07-2024 Yearly Adult Physical Yearly Adult P hysical [facility] Start: 06-23-2024 End: 06-23-2024 Patient encounter procedure OB/Gynecology Comment on above: OB NST Start: 06-20-2024 End: 06-20-2024 Patient encounter procedure 06/20/2024 11:30 AM EDT Routine Office Visit Maternal Medicine [address] [place] [address] [facility] Maternal Medicine Comment on above: Growth Start: 06-17-2024 End: 06-17-2024 Patient encounter procedure OB/Gynecology Comment on above: NST Start: 06-10-2024 End: 06-10-2025 OBSTETRIC ULTRASOUND WHI OBSTETRIC ULTRASOUND WHI Anc Imaging Routine Encounter for supervision of high risk in third trimester, antepartum Obesity affecting in third trimester, unspecified obesity type Anemia complicating , third trimester 38 weeks gestation of Expected: 06/10/2024, Expires: 06/10/2025 [facility] Work Phone: Comment on above: Expected: 06/10/2024 , Expires: 06/10/2025 Start: 06-10-2024 End: 06-10-2024 Patient encounter procedure OB/Gynecology Comment on above: NST NST at 130 Start: 06-02-2024 End: 06-02-2024 Patient encounter procedure OB/Gynecology Comment on above: NST Start: 05-26-2024 End: 05-26-2025 OBSTETRIC ULTRASOUND WHI OBSTETRIC ULTRASOUND WHI Anc Imaging Routine Encounter for supervision of high risk in third trimester, antepartum 36 weeks gestation of Expected: 05/26/2024, Expires: 05/26/2025 [facility] Work Phone: Comment on above: Expected: 05/26/2024 , Expires: 05/26/2025 Start: 05-26-2024 End: 05-26-2024 Patient encounter procedure OB/Gynecology Comment on above: NST Start: 05-12-2024 End: 05-12-2024 Patient encounter procedure 05/12/2024 1:30 PM EDT Routine Office Visit OB/Gynecology [address] [place], [place] [id number] Alexis Velazquez MD [address] [place], [place] [id number] OB OB/Gynecology Comment on above: OB Start: 05-04-2024 Covid-19 Vaccine () Covid-19 Vaccine () [facility] Start: 05-04-2024 Covid-19 Vaccine () Covid-19 Vaccine () [facility] Start: 05-04-2024 Influenza vaccination [facility] Start: 05-04-2024 RSV Vaccine (1 - Ris k 1-dose series) RSV Vaccine (1 - Risk 1-dose series) [facility] Start: 04-30-2024 End: 04-30-2024 Patient encounter procedure OB/Gynecology Comment on above: Growth OB Start: 04-29-2024 End: 04-29-2025 OBSTETRIC ULTRASOUND WHI OBSTETRIC ULTRASOUND WHI Anc Imaging Routine Encounter for supervision of high risk in third trimester, antepartum Expected: 04/29/2024, Expires: 04/29/2025 [facility] Work Phone: Comment on above: Expected: 04/29/2024 , Expires: 04/29/2025 Start: 04-28-2024 End: 04-28-2024 Patient encounter procedure 04/28/2024 1:30 PM EDT Routine Office Visit OB/Gynecology [address] [place] [address] Suni Mcmillan MD [address] [place] [address] OB OB/Gynecology Comment on above: OB Start: 04-17-2024 End: 04-17-2024 Patient encounter procedure 04/17/2024 2:30 PM EDT Routine Office Visit OB/Gynecology [address] [place] [address] Cherry Solorzano, HOME HEALTH TRAVEL PT.CREATIVE WRITING PROFESSOR [address] [place] [address] OB OB/Gynecology Comment on above: OB Start: 04-02-2024 End: 04-02-2024 Patient encounter procedure 04/02/2024 11:15 AM EDT Routine Office Visit OB/Gynecology [address] [place] [address] Chelo Porter, MJ.CNM [address] [place] [address] OB OB/Gynecology Comment on above: OB Start: 04-02-2024 End: 04-02-2024 ambulatory 04/02/2024 11:00 AM EDT Results Only [facility] [address] [place] [address] Glucose test [facility] Comment on above: Glucose test Start: 03-24-2024 End: 03-24-2024 Patient encounter procedure 03/24/2024 3:45 PM EDT Routine [facility] Building [address] [place] [id number] Florida Dickinson MD [address] [facility] Medical Office, [address] [address] [facility] Building Start: 03-20-2024 End: 06-19-2024 CBC W Auto Differential panel - Blood COMPLETE BLOOD COUNT AND DIFFERENTIAL Lab Routine Encounter for supervision of high risk in second trimester, antepartum Expected: 03/20/2024, Expires: 06/19/2024 [facility] Work Phone: Comment on above: Expected: 03/20/2024 , Expires: 06/19/2024 Start: 03-20-2024 End: 06-19-2024 GESTATIONAL GLUCOSE SCREEN, 1-HOUR, 50 GRAM, NON-FASTING GESTATIONAL GLUCOSE SCREEN, 1-HOUR, 50 GRAM, NON-FASTING Lab Routine Encounter for supervision of high risk in second trimester, antepartum Expected: 03/20/2024, Expires: 06/19/2024 [facility] Comment on above: Expected: 03/20/2024 , Expires: 06/19/2024 Start: 03-20-2024 End: 06-19-2024 SYPHILIS TOTAL W/REFLEX SYPHILIS TOTAL W/REFLEX Lab Routine Encounter for supervision of high risk in second trimester, antepartum Expected: 03/20/2024, Expires: 06/19/2024 [facility] Comment on above: Expected: 03/20/2024 , Expires: 06/19/2024 Start: 12-12-2023 End: 12-12-2023 ambulatory 12/12/2023 10:45 AM EDT Initial [facility] Building [address] [place] [id number] Florida Dickinson MD [address] [facility], [address] [place], [place] [id number] [facility] Building Start: 11-13-2023 End: 11-13-2023 Professional / ancillary services management 11/13/2023 1:00 PM EDT Ancillary Procedure [facility] [address] [place] [phone] [facility] Building Start: 09-06-2023 End: 09-06-2023 Patient encounter procedure 09/06/2023 10:45 AM EST Office Visit [facility] [address] [place] [address] Dwight Mix, HOME HEALTH TRAVEL PT-CNM, HOME HEALTH TRAVEL PT-CREATIVE WRITING PROFESSOR, DNP [address] [address] Department of ACTIVITIES COORDINATOR-[place] [address] [facility] Medical Office [facility] Start: 09-03-2023 Behavioral Health Screening Behavioral Health Screening [facility] Start: 08-09-2023 Patient encounter procedure ANNUAL, Provider: Dwight Mix, Status: Pen, Time: 10:[address] Work Phone: Start: 05-04-2023 COVID-19 Vaccine ( season) COVID-19 Vaccine ( season) [facility] Start: 05-04-2023 Influenza vaccination [facility] Start: 02-02-2023 End: 02-02-2023 ambulatory 02/02/2023 2:50 PM EDT Lab [facility] [address] [place] [address] Right upper quadrant abdominal pain; Fatigue, unspecified type [facility] Comment on above: Right upper quadrant abdominal pain; Fatigue, unspecified type Start: 02-02-2023 End: 02-03-2024 CBC panel - Blood by Automated count [facility] Service Area Work Phone: Comment on above: Expected: 02/02/2023 (Approximate), Expires: 02/03/2024 Start: 02-02-2023 End: 02-03-2024 Comprehensive metabolic 2000 panel - Serum or Plasma [facility] Work Phone: Comment on above: Expected: 02/02/2023 (Approximate), Expires: 02/03/2024 Start: 02-02-2023 End: 02-03-2024 Lipase [Enzymatic activity/volume] in Serum or Plasma [facility] Work Phone: Comment on above: Expected: 02/02/2023 (Approximate), Expires: 02/03/2024 Start: 02-02-2023 End: 02-03-2024 Thyrotropin [Units/volume] in Serum or Plasma [facility] Work Phone: Comment on above: Expected: 02/02/2023 (Approximate), Expires: 02/03/2024 Start: 02-02-2023 End: 02-03-2024 US Gallbladder US gallbladder Imaging Routine Right upper quadrant abdominal pain Expected: 02/02/2023, Expires: 02/03/2024 [facility] Work Phone: Comment on above: Expected: 02/02/2023 , Expires: 02/03/2024 Start: 08-03-2022 Patient encounter procedure ANNUAL, Provider: Diwght Mix, Status: Pen, Time: 9:[address] Work Phone: Start: 06-09-2022 NPV, Provider: Sanjuana Rodriguez, Status: Pen, Time: 2:45 PM NPV, Provider: Sanjuana Rodriguez, Status: Pen, Time: 2:45 PM [place] Work Phone: Start: 01-18-2022 EPVOB, Provider: Malena Mckee, Status: Pen, Time: 3:30 PM EPVOB, Provider: Malena Mckee, Status: Pen, Time: 3:30 PM [facility] [address] Work Phone: Start: 01-11-2022 EPVOB, Provider: Malena Mckee, Status: Pen, Time: 3:30 PM EPVOB, Provider: Malena Mckee, Status: Pen, Time: 3:30 PM [facility] [address] [address] Work Phone: Start: 01-04-2022 EPVOB, Provider: Malena Mckee, Status: Pen, Time: 3:30 PM EPVOB, Provider: Malena Mckee, Status: Pen, Time: 3:30 PM [facility] [place] [place] [address] [address] Work Phone: Start: 12-28-2021 EPVOB, Provider: Malena Mckee, Status: Pen, Time: 3:30 PM EPVOB, Provider: Malena Mckee, Status: Pen, Time: 3:30 PM [employer] Work Phone: Start: 12-14-2021 EPVOB, Provider: Malena Mckee, Status: Pen, Time: 10:45 AM EPVOB, Provider: Malena Mckee, Status: Pen, Time: 10:45 AM [employer] Work Phone: Start: 11-30-2021 EPVOB, Provider: Florida Dickinson, Status: Pen, Time: 3:45 PM EPVOB, Provider: Florida Dickinson, Status: Pen, Time: 3:45 PM [employer] Work Phone: Start: 11-02-2021 EPVOB, Provider: Malena Mckee, Status: Pen, Time: 3:45 PM EPVOB, Provider: Malena Mckee, Status: Pen, Time: 3:45 PM [employer] Work Phone: Start: 10-04-2021 EPVOB, Provider: Malena Mckee, Status: Pen, Time: 3:45 PM EPVOB, Provider: Malena Mckee, Status: Pen, Time: 3:45 PM [facility] [address] Work Phone: Start: 09-05-2021 EPVOB, Provider: Malena Mckee, Status: Pen, Time: 1:15 PM EPVOB, Provider: Malena Mckee, Status: Pen, Time: 1:15 PM [employer] Work Phone: Start: 08-15-2021 EPVOB, Provider: Malena Mckee, Status: Pen, Time: 3:45 PM EPVOB, Provider: Malena Mckee, Status: Pen, Time: 3:45 PM [employer] Work Phone: Start: 07-18-2021 EPVOB, Provider: Malena Mckee, Status: Pen, Time: 3:30 PM EPVOB, Provider: Malena Mckee, Status: Pen, Time: 3:30 PM [employer] Work Phone: Start: 06-28-2021 COVID-19 Vaccine (4 - Booster for Pfizer series) COVID-19 Vaccine (4 - Booster for Pfizer series) [facility] Start: 06-28-2021 COVID-19 Vaccine (4 - Pfizer series) COVID-19 Vaccine (4 - Pfizer series) [facility] Start: 2019 Screening for malign ant neoplasm of cervix [facility] Start: 05-24-2018 HPV Vaccine (3 - 3-d ose series) HPV Vaccine (3 - 3-dose series) [facility] Start: 05-24-2018 HPV Vaccines (3 - 3-dose series) HPV Vaccines (3 - 3-dose series) [facility] Start: 04-15-2018 HPV Vaccines (3 - 3-dose series) HPV Vaccines (3 - 3-dose series) [facility] Start: 2016 Anxiety Screening Anxiety Screening [facility] Start: 2016 Depression Screening Depression Scre ening [facility] Start: 2016 HIV screening HIV Screening [facility] Start: 2012 Peds To Adult Transition Annual Assessment Peds To Adult Transition Annual Assessment [facility] Start: 2010 Peds To Adult Transition Initial Discussion Peds To Adult Transition Initial Discussion [facility] Start: 1998 Lipid panel Lipid Panel [facility] Start: 1998 Yearly Adult Physical Yearly Adult P [facility] Bacteria identified in Urine by Culture URINE CULTURE Microbiology Routine Stress incontinence, female 03/20/2024 2:58 PM EDT [facility] ROUTINE, GR OUP B STREP PCR ROUTINE, GROUP B STREP PCR Microbiology Routine Encounter for supervision of high risk in third trimester, antepartum 36 weeks gestation of Anemia complicating , third trimester Obesity affecting in third trimester, unspecified obesity type 05/26/2024 1:45 PM EDT [facility] End: 02-11-2024 US for in second or third trimester [facility] Service Area Work Phone: Comment on above: Once for 1 Occurrenc es starting 02/11/2024 until 02/11/2024 [facility] Work Phone: NEGATED: Highlighted row has been ruled out! Planned Goals not documented [facility] [employer] Work Phone: Immunizations Immunization Date Immunization Notes Care Provider Demetra odell 06-10-2024 COVID-19 vaccine, ag e 12+ yr (PFIZER-BIONTECH COMIRNATY) Alexis Velazquez MD Work Phone: [facility] 06-10-2024 influenza, seasonal, injectable Alexis Velazquez MD Work Phone: [facility] 04-02-2024 tetanus toxoid, redu erick diphtheria toxoid, and acellular pertussis vaccine, adsorbed Chelo Porter HOME HEALTH TRAVEL PT.CNM Work Phone: [facility] 12-14-2021 influenza, injectabl e, quadrivalent, preservative free Krupa T Furness Work Phone: [facility] Work Phone: 12-14-2021 tetanus toxoid, redu erick diphtheria toxoid, and acellular pertussis vaccine, adsorbed Krupa T Furness Work Phone: [facility] Work Phone: 12-14-2021 influenza virus vacc ine, unspecified formulation Krupa Tran MD Work Phone: [facility] Work Phone: 05-03-2021 Pfizer-BioNTech COVI D-19 Vacc 30 MCG/0.3ML Intramuscular Suspension Krupa Tran Work Phone: [address] Work Phone: Comment on above: Series: 01-19-2021 Pfizer-BioNTech COVI D-19 Vacc 30 MCG/0.3ML Intramuscular Suspension Krupa Tran Work Phone: [facility] Work Phone: 12-29-2020 Pfizer-BioNTech COVI D-19 Vacc 30 MCG/0.3ML Intramuscular Suspension Krupa Tran Work Phone: [address] Work Phone: Comment on above: Series: 01-21-2018 haemophilus influenz ae type b conjugate and Hepatitis B vaccine Krupa Tran MD Work Phone: [facility] Work Phone: 01-21-2018 Human Papillomavirus 9-valent vaccine Krupa Tran Work Phone: [facility] Comment on above: Series: 01-21-2018 meningococcal B vacc ine, recombinant, OMV, adjuvanted Krupa Tran Work Phone: [facility] Comment on above: Series: 01-21-2018 HPV, unspecified formulation Krupa Tran MD Work Phone: [facility] Work Phone: 04-11-2016 Human Papillomavirus 9-valent vaccine Krupa Tran Work Phone: [facility] Comment on above: Series: 04-11-2016 meningococcal polysaccharide (groups A, C, Y and W-135) diphtheria toxoid conjugate vaccine (MCV4P) Krupa Tran Work Phone: [facility] Comment on above: Series: 02-23-2010 meningococcal polysaccharide (groups A, C, Y and W-135) diphtheria toxoid conjugate vaccine (MCV4P) Krupa Cruz [employer] Work Phone: [address] Work Phone: Comment on above: Series: 02-23-2010 tetanus toxoid, redu erick diphtheria toxoid, and acellular pertussis vaccine, adsorbed Krupa Tran Work Phone: [address] Work Phone: Comment on above: Series: 04-18-2009 tetanus and diphther ia toxoids, adsorbed, preservative free, for adult use (2 Lf of tetanus toxoid and 2 Lf of diphtheria toxoid) [facility] Work Phone: 10-17-2003 poliovirus vaccine, inactivated [facility] Work Phone: 01-01-2003 diphtheria, tetanus toxoids and acellular pertussis vaccine [facility] Work Phone: 01-01-2003 diphtheria, tetanus toxoids and acellular pertussis vaccine, unspecified formulation Krupa Tran Work Phone: [facility] Work Phone: 01-01-2003 poliovirus vaccine, inactivated Krupa Tran Work Phone: [facility] Comment on above: Series: 10-17-2002 diphtheria, tetanus toxoids and acellular pertussis vaccine [facility] Work Phone: 04-20-2002 varicella virus vaccine [facility] Work Phone: 11-23-1999 diphtheria, tetanus toxoids and acellular pertussis vaccine [facility] Work Phone: 11-23-1999 diphtheria, tetanus toxoids and acellular pertussis vaccine, unspecified formulation Krupa Tran Work Phone: [facility] Work Phone: 11-23-1999 measles, mumps and rubella virus vaccine Krupa Tran Work Phone: [facility] Work Phone: 10-18-1999 diphtheria, tetanus toxoids and acellular pertussis vaccine [facility] Work Phone: 10-18-1999 hepatitis A vaccine, pediatric/adolescent dosage, 2 dose schedule [facility] Work Phone: 10-13-1999 hepatitis B vaccine, pediatric or pediatric/adolescent dosage [facility] Work Phone: 08-30-1999 varicella virus vaccine Patr oniel Tran Work Phone: [address] Work Phone: Comment on above: Series: 06-01-1999 haemophilus influenz ae type b conjugate and Hepatitis B vaccine Krupa Tran Work Phone: [facility] Work Phone: 06-01-1999 measles, mumps and rubella virus vaccine Krupa Tran Work Phone: [facility] Comment on above: Series: 06-01-1999 poliovirus vaccine, inactivated [facility] Work Phone: 06-01-1999 trivalent poliovirus vaccine, live, oral Krupa Tran Work Phone: [facility] Work Phone: 1999 haemophilus influenz ae type b vaccine, conjugate unspecified formulation [facility] Work Phone: 1999 hepatitis A vaccine, pediatric/adolescent dosage, 2 dose schedule [facility] Work Phone: 1999 pneumococcal conjuga te vaccine, 7 valent [facility] Work Phone: 1999 varicella virus vaccine [facility] Work Phone: 1998 haemophilus influenz ae type b vaccine, conjugate unspecified formulation Krupa T ConnXusess Work Phone: [facility] Work Phone: 1998 haemophilus influenz ae type b vaccine, PRP-T conjugate [facility] Work Phone: 1998 diphtheria, tetanus toxoids and acellular pertussis vaccine [facility] Work Phone: 1998 diphtheria, tetanus toxoids and acellular pertussis vaccine, unspecified formulation [employer] Work Phone: [facility] Work Phone: 1998 haemophilus influenz ae type b conjugate and Hepatitis B vaccine Krupa T Anita Margarita Work Phone: [facility] Work Phone: 1998 haemophilus influenz ae type b vaccine, PRP-T conjugate [facility] Work Phone: 1998 hepatitis B vaccine, pediatric or pediatric/adolescent dosage [facility] Work Phone: 1998 haemophilus influenz ae type b vaccine, conjugate unspecified formulation [facility] Work Phone: 1998 pneumococcal conjuga te vaccine, 7 valent [facility] Work Phone: 1998 poliovirus vaccine, inactivated [facility] Work Phone: 1998 diphtheria, tetanus toxoids and acellular pertussis vaccine [facility] Work Phone: 1998 diphtheria, tetanus toxoids and acellular pertussis vaccine, unspecified formulation Krupa T Chelsea Work Phone: [facility] Work Phone: 1998 haemophilus influenz ae type b vaccine, PRP-OMP conjugate Krupa T [employer] Work Phone: [address] Work Phone: Comment on above: Series: 1998 haemophilus influenz ae type b vaccine, PRP-T conjugate [facility] Work Phone: 1998 hepatitis B vaccine, pediatric or pediatric/adolescent dosage Krupa T [place] Work Phone: [facility] Comment on above: Series: 1998 poliovirus vaccine, inactivated Krupa T [place] Work Phone: [facility] Comment on above: Series: 1998 diphtheria, tetanus toxoids and acellular pertussis vaccine [facility] Work Phone: 1998 haemophilus influenz ae type b vaccine, conjugate unspecified formulation [facility] Work Phone: 1998 pneumococcal conjuga te vaccine, 7 valent [facility] Work Phone: 1998 poliovirus vaccine, inactivated [facility] Work Phone: 1998 haemophilus influenz ae type b conjugate and Hepatitis B vaccine Krupa T Furnjumana Work Phone: [facility] Work Phone: 1998 haemophilus influenz ae type b vaccine, PRP-T conjugate [facility] Work Phone: 1998 hepatitis B vaccine, pediatric or pediatric/adolescent dosage [facility] Work Phone: 1998 diphtheria, tetanus toxoids and acellular pertussis vaccine [facility] Work Phone: 1998 diphtheria, tetanus toxoids and acellular pertussis vaccine, unspecified formulation Krupa Tran Work Phone: [facility] Work Phone: 1998 poliovirus vaccine, inactivated Krupa Cruz [facility] Work Phone: [facility] Comment on above: Series: 1998 haemophilus influenz ae type b vaccine, conjugate unspecified formulation [facility] Work Phone: 1998 hepatitis B vaccine, pediatric or pediatric/adolescent dosage [facility] Work Phone: 1998 pneumococcal conjuga te vaccine, 7 valent [facility] Work Phone: 1998 hepatitis B vaccine, pediatric or pediatric/adolescent dosage [facility] Work Phone: Payers Date Payer Category Payer Unknown [id number] 2. [id number] 1998 Unknown [id number] 2. [id number]. 1998 Unknown [id number] 2. 840.1.655837.3.579.2.356 1998 Unknown [id number] 2. 840.1.623958.3.579.2. 1998 Unknown [id number] 2. 840.1.761435.3.579.2.356 1998 Unknown [id number] 2. 840.1.886129.3.579.2. 1998 Unknown [id number] 2. 840.1.280397.3.579.2.356 1998 Unknown [id number] 2. 840.1.067186.3.579.2.356 1998 Unknown [id number] 2.16. 840.1.089048.3.579.2.356 1998 Unknown [id number] 2.16. 840.1.419641.3.579.2.356 1998 Unknown [id number] 2.16. 840.1.001144.3.579.2.356 1998 Unknown [id number] 2.16. 840.1.185659.3.579.2.356 1998 Unknown [id number] 2.16. 840.1.832160.3.579.2.356 1998 Unknown [id number] 2.16.8 40.1.325313.3.579.2.1068 1998 Unknown [id number] 2.16.8 40.1.272022.3.579.2.1068 1998 Unknown [id number] 2.16.8 40.1.675685.3.579.2.1068 1998 Unknown [id number] 2.16.8 40.1.432781.3.579.2.1068 1998 Unknown [id number] 2.16.8 40.1.484699.3.579.2.9 1998 Unknown [id number] 2.16.8 40.1.635481.3.579.2.1244 1998 Unknown [id number] 2.16.8 40.1.147611.3.579.2.1244 1998 Unknown [id number] 2.16.84 0.1.266280.3.579.2.1244 1998 Unknown [id number] 2.16.8 40.1.812115.3.579.2.1242 1998 Unknown [id number] 2.16.8 40.1.873890.3.579.2.124 1998 Unknown [id number] 2.16.8 40.1.901129.3.579.2.1243 1998 Unknown [id number] 2.16.8 40.1.348949.3.579.2.3 1998 Unknown [id number] 2.16.84 0.1.755584.3.579.2.1243 1998 Unknown [id number] 2.16. 840.1.536222.3.579.2.1243 1998 Unknown [id number] 2.16.8 40.1.600772.3.579.2.4 1998 Unknown [id number] 2.16.8 40.1.950871.3.579.2.1243 1998 Unknown [id number] 2.16.8 40.1.356763.3.579.2.4 1998 Unknown [id number] 2.16.8 40.1.592343.3.579.2.1243 1998 Unknown [id number] 2.16.8 40.1.157890.3.579.2.4 1998 Unknown [id number] 2.16.8 40.1.154765.3.579.2.1244 Unknown Unknown [id number] Unknown [id number] Social History Date Type Detail Facility Assertion Unknown if ever smoked [place] [address] [address] Work Phone: Start: 02-02-2023 End: 03-20-2024 Denies alcohol consumption Denies alcohol consumption [facility] Work Phone: Start: 02-02-2023 End: 03-20-2024 Tobacco smoking status NHIS Never smoked tobacco [facility] Start: 02-02-2023 End: 03-20-2024 Tobacco use and exposure Smokeless tobacco non-user [facility] Work Phone: Start: 02-02-2023 Alcohol intake Lifetime non-d virgen (finding) [facility] Work Phone: Start: 02-02-2023 End: 03-20-2024 Tobacco use panel [facility] Work Phone: Start: 1998 Sex Assigned At Not on file U [facility] Work Phone: Start: 01-23-2023 End: 06-05-2024 Exposure to SARS-CoV-2 (event) Not sure [facility] Start: 07-12-2023 End: 06-17-2024 Alcohol intake Ex-drinker (finding) [facility] Work Phone: Start: 10-01-2023 [facility] Work Phone: National Score (1-100), lower number is lower risk 87 [facility] Start: 03-20-2024 Education 17 [facility] NEGATED: Highlighted rowStart: NINF History of tobacco use Passive smoker [facility] Work Phone: Functional Status Date Assessment Result Facility NEGATED: Highlighted row Functional performance Functional status health issues are not documented Disease [place] [address] [address] Work Phone: Mental Status Date Assessment Result Facility NEGATED: Highlighted row Cognitive function [Interpretation] Cognitive status health issues are not documented Disease [address] Work Phone: Clinical Notes 08-03-2022 to 06-20-2024 Result Encounter Note - Alexis Velazquez MD - 06/20/2024 1:47 PM EDTResult Encounter Note - Alexis Velazquez MD - 06/20/2024 1:47 PM EDTMadonna Bartholomew MD - 06/17/2024 12:12 PM EDT Note Date & Type Note Facility 06-20-2024 Progress note Formatting of t his note might be different from the original. Anatomy ultrasound reviewed. No abnormalities identified. Follow up as clinically indicated. Please place copy in ob chart. Alexis Velazquez MD [facility] 06-20-2024 Miscellaneous Notes Anatomy ultrasound reviewed. No abnormalities identified. Follow up as clinically indicated. Please place copy in ob chart. Alexis Velazquez MD documented in this encounter [facility] 06-20-2024 Note Indication Evaluation of growth. Maternal obesity, BMI >30. POTS Impression REMOTE READ - Single, live, intrauterine . - The biometry is consistent with the assigned gestational dating. - The EFW is 3145 g, at the 20%. AC is at the 14%. - The amniotic fluid volume is normal amount with an MVP of 2.6 cm and an LEONARDO of 7.7 cm. - The placenta is posterior, fundal. - The left ureter is visible and measures 9.4 mm without dilation of renal pelvis or other abnormalities noted, although limited by late gestational age. No malformations visualized on a limited survey as detailed below. Recommendations Inform pediatricians at delivery Additional follow-up as clinically indicated. Maternal Assessment Height 165 cm Height (ft) 5 ft Height (in) 5 in Physical Exam Initial weight (lb) 233 lb Initial BMI 38.77 kg/m Method Transabdominal ultrasound examination. View: Suboptimal view: limited by late gestational age Ramirez . Number of fetuses: 1 Dating LMP on: 09/17/2023 GA by LMP 39 w + 4 d ROSA by LMP: 06/23/2024 Ultrasound examination on: 06/20/2024 GA by U/S based upon: AC, BPD, Femur, HC GA by U/S 37 w + 4 d ROSA by U/S: 07/07/2024 Assigned: based on the LMP, selected on 04/30/2024 Assigned GA 39 w + 4 d Assigned ROSA: 06/23/2024 General Evaluation Cardiac activity present. FHR 130 bpm. movements: present. Presentation: cephalic Placenta: Placental site: posterior, fundal Umbilical cord: Cord vessels: 3 vessel cord. Insertion site: normal insertion Amniotic fluid: Amount of AF: normal amount. MVP 2.6 cm. LEONARDO 7.7 cm. Q1 1.9 cm, Q2 2.2 cm, Q3 2.6 cm, Q4 1.0 cm Growth Overview Exam date GA BPD (mm) HC (mm) AC (mm) FL (mm) HL (mm) EFW (g) 04/30/2024 32w 2d 82.9 73% 296.3 42% 282.3 49% 59.9 29% 52.3 11% 1882 31% 06/20/2024 39w 4d 94 55% 338.1 41% 333.1 14% 71 17% 3145 20% Biometry Standard BPD 94.0 mm 38w 2d 55% Hadlock OFD 119.0 mm -/- 69% Nicolaides HC 338.1 mm 38w 5d 41% Alonso AC 333.1 mm 37w 2d 14% Hadlock Femur 71.0 mm 35w 6d 17% Alonso EFW 3,145 g 37w 4d 20% Hadlock EFW (lb) 6 lb EFW (oz) 15 oz EFW by: Hadlock (HC-AC-FL) Other: left ureter 9.4mm Extended Varnish Supervisor 4.8 mm Lt Renal pelvis ap 6.2 mm Extremities / Bony Struc FL / HC 0.21 Other Structures FHR 130 bpm Anatomy Lateral ventricles: normal Cavum septi pellucidi: normal Cerebellum: normal Cisterna magna: normal 4-chamber view: normal RVOT view: normal LVOT view: normal 3-vessel view: normal Heart / Thorax Situs: situs solitus (normal) Diaphragm: normal Stomach: normal Kidneys: normal Bladder: normal Gender: Unspecified Wants to know sex: no Performed By: Keyla Rainey [facility] Read By: Ana Melton M.D. [facility] 06-17-2024 Note HNO ID: [id number] Author: MADONNA BARTHOLOMEW MD Service: ? Author Type: Physician Type: Progress Notes Filed: 06/17/2024 14:08 Note Text: NST SUMMARY PROVIDER ASSESSMENT AND INTERPRETATION Cherry Morel is a 24 year old female, , who is at 39w1d with an ROSA of 06/23/2024, by Last Menstrual Period dating method. Indications for NST: Obesity Baseline: 135 Variability: Moderate Accelerations: Present 15 X 15 Decelerations: None Contractions: TOCO: None Interpretation: Reactive SIGNATURE: Madonna Bartholomew MD [facility] 06-17-2024 History of Present illness Narrative NST SUMMARY PROVIDER ASSESSMENT AND INTERPRETATION Cherry Morel is a 24 year old female, , who is at 39w1d with an ROSA of 06/23/2024, by Last Menstrual Period dating method. Indications for NST: Obesity Baseline: 135 Variability: Moderate Accelerations: Present 15 X 15 Decelerations: None Contractions: TOCO: None Interpretation: Reactive SIGNATURE: Madonna Bartholomew MD documented in this encounter [facility] 06-17-2024 Progress note Formatting of t his note might be different from the original. KJ - VB No. LOF No. CTXS No. Movement: present. Other c/o: No. Medication list reviewed. Physical Exam See Flow Sheet Gen: no accute distress, well appearing Abd: soft, nontender, gravid A/P 39w1d Estimated Date of Delivery: 06/23/24 Obesity - reactive NST today. Discussed R/B/A of IOL. Patient declines scheduling at this time. Growth US Sunday. Anemia - encouraged Fe & Regular PNV use Labor precautions reviewed, Kick counts reviewed. Madonna Bartholomew MD [facility] 06-17-2024 Miscellaneous Notes KJ - VB No. LOF No. CTXS No. Movement: present. Other c/o: No. Medication list reviewed. Physical Exam See Flow Sheet Gen: no accute distress, well appearing Abd: soft, nontender, gravid A/P 39w1d Estimated Date of Delivery: 06/23/24 Obesity - reactive NST today. Discussed R/B/A of IOL. Patient declines scheduling at this time. Growth US Sunday. Anemia - encouraged Fe & Regular PNV use Labor precautions reviewed, Kick counts reviewed. Madonna Bartholomew MD documented in this encounter [facility] 06-17-2024 Instructions Ashley Herbert MA - 06/17/2024 11:38 AM EDT SEQUENTIAL SCREENINGS The [facility] offers sequential screenings for women who are interested in screenings for chromosomal abnormalities and certain defects during a . The sequential screen combines ultrasound and blood tests to determine the risk of chromosomal abnormalities, including Down's Syndrome (Trisomy 21) and Trisomy 18, as well as open neural tube defects including spina bifida. Ultrasound examination is performed between 11 weeks and 13 weeks gestational age. Blood tests are drawn after the ultrasound and again later in the between 15 and 21 weeks gestational age. Please let your physician know if you are interested in this testing. It will require an appointment with our battery technician. This is not an ultrasound performed by a physician in our office during a routine visit. SIGNS AND SYMPTOMS OF LABOR 1. Contractions every 10 minutes or more often 2. Clear, pink, or brownish fluid (water) leaking from vagina 3. Feeling that baby is pushing down, pressure 4. Low, dull backache 5. Cramps that feel like a period 6. Cramps with or without diarrhea If you notice any of the above symptoms, contact our office at [phone] and ask to speak with a nurse. After hours, you can call doctors registry at [phone] OR call [facility] at [phone] and ask to have the doctor immigration inspector paged. If you consider this an emergency, dial 0-1-9 or go to your nearest emergency department. NEED HELP? Are you dealing with a violent or abusive relationship? Are you a victim of rape or sexual assult? Call [facility] ([place]) 24 hour Crisis Hotline: 914.662.2295 or 770-396-6228. MANUAL Your Guide to a Healthy manual is now on-line. Visit [email or web address] to download your free copy documented in this encounter [facility] 06-10-2024 Note HNO ID: [id number] Author: ALEXIS VELAZQUEZ MD Service: ? Author Type: Physician Type: Progress Notes Filed: 06/10/2024 14:20 Note Text: NST SUMMARY PROVIDER ASSESSMENT AND INTERPRETATION Cherry Morel is a 24 year old female, , who is at 38w1d with an ROSA of 06/23/2024, by Last Menstrual Period dating method. Indications for NST: Obesity Baseline: 135 Variability: Moderate Accelerations: Present 15 X 15 Decelerations: None Contractions: TOCO: Irregular Interpretation: Category I and Reactive SIGNATURE: Alexis Velazquez MD [facility] 06-10-2024 History of Present illness Narrative NST SUMMARY PROVIDER ASSESSMENT AND INTERPRETATION Cherry Morel is a 24 year old female, , who is at 38w1d with an ROSA of 06/23/2024, by Last Menstrual Period dating method. Indications for NST: Obesity Baseline: 135 Variability: Moderate Accelerations: Present 15 X 15 Decelerations: None Contractions: TOCO: Irregular Interpretation: Category I and Reactive SIGNATURE: Alexis Velazquez MD documented in this encounter [facility] 06-10-2024 Progress note Formatting of t his note might be different from the original. RR- VB No. LOF No. CTXS No. Movement: present. Other c/o: denies NEFF or visual changes, intermittent edema Medication list reviewed. Physical Exam See Flow Sheet Abd: soft, nontender, gravid Ext: edema: Trace A/P 38w1d Estimated Date of Delivery: 06/23/24 reviewed GBS next. anemia- cont. Fe obesity-last growth scan 32 weeks, d/w her concern for increased risks of IUFD w/ maternal obesity and while low is increased over baseline. Recommend kick counts, cont. NSTs, consider induction 39-40 weeks. If not delivered by 40 weeks repeat US for growth and fluid. D/w her can be increased chance of c/s with high risk patients past ROSA Covid and flu vaccines today Alexis Velazquez M.D. [facility] 06-10-2024 Miscellaneous Notes RR- VB No. LOF No. CTXS No. Movement: present. Other c/o: denies NEFF or visual changes, intermittent edema Medication list reviewed. Physical Exam See Flow Sheet Abd: soft, nontender, gravid Ext: edema: Trace A/P 38w1d Estimated Date of Delivery: 06/23/24 reviewed GBS next. anemia- cont. Fe obesity-last growth scan 32 weeks, d/w her concern for increased risks of IUFD w/ maternal obesity and while low is increased over baseline. Recommend kick counts, cont. NSTs, consider induction 39-40 weeks. If not delivered by 40 weeks repeat US for growth and fluid. D/w her can be increased chance of c/s with high risk patients past ROSA Covid and flu vaccines today Alexis Velazquez M.D. documented in this encounter [facility] 06-10-2024 Instructions Ellyn Chapin MA - 06/10/2024 1:37 PM EDT SEQUENTIAL SCREENINGS The [facility] offers sequential screenings for women who are interested in screenings for chromosomal abnormalities and certain defects during a . The sequential screen combines ultrasound and blood tests to determine the risk of chromosomal abnormalities, including Down's Syndrome (Trisomy 21) and Trisomy 18, as well as open neural tube defects including spina bifida. Ultrasound examination is performed between 11 weeks and 13 weeks gestational age. Blood tests are drawn after the ultrasound and again later in the between 15 and 21 weeks gestational age. Please let your physician know if you are interested in this testing. It will require an appointment with our battery technician. This is not an ultrasound performed by a physician in our office during a routine visit. SIGNS AND SYMPTOMS OF LABOR 1. Contractions every 10 minutes or more often 2. Clear, pink, or brownish fluid (water) leaking from vagina 3. Feeling that baby is pushing down, pressure 4. Low, dull backache 5. Cramps that feel like a period 6. Cramps with or without diarrhea If you notice any of the above symptoms, contact our office at [phone] and ask to speak with a nurse. After hours, you can call doctors registry at [phone] OR call [facility] at [phone] and ask to have the doctor immigration inspector paged. If you consider this an emergency, dial 9-1-1 or go to your nearest emergency department. NEED HELP? Are you dealing with a violent or abusive relationship? Are you a victim of rape or sexual assult? Call [facility] ([place]) 24 hour Crisis Hotline: 588.957.4634 or 037-113-3004. MANUAL Your Guide to a Healthy manual is now on-line. Visit [email or web address] to download your free copy documented in this encounter [facility] 06-05-2024 History of Present illness Narrative Bilateral ears feel plugged; currently 37 weeks ; states has had this issue with her ears before; states feels like she has a bubble of air in her ears Subjective Cherry Morel is a 24 y.o. female who presents for Ears feel plugged. HPI Ears feel full intermittently for a year. When she lies on her side can hear crackling like air going through in her ear. Decreased hearing. Review of Systems All other systems reviewed and are negative. . No Known Allergies Current Outpatient Medications on File Prior to Visit Medication Sig Dispense Refill iron,carb/vit C/vit B12/folic (IRON 100 PLUS ORAL) Take by mouth. no115/iron/folic acid ( 19 ORAL) Take by mouth. [DISCONTINUED] rizatriptan (Maxalt) 10 mg tablet Take 1 tablet (10 mg) by mouth 1 time if needed for migraine (may repeat x1). May repeat in 2 hours if unresolved. Do not exceed 30 mg in 24 hours. 9 tablet 3 No current facility-administered medications on file prior to visit. Patient Active Problem List Diagnosis Anemia Anxiety Breast lump in female Dysfunction of both eustachian tubes Generalized anxiety disorder Insomnia Intrahepatic cholestasis of Lower back pain Lumbosacral radiculopathy Migraines Nausea and vomiting in Obesity Solitary cyst of unspecified breast Tinea versicolor Right upper quadrant abdominal pain Migraine without aura and without status migrainosus, not intractable Other acne Irregular periods Esophageal reflux Chronic headaches Stress incontinence (female) (male) Objective Visit Vitals BP 138/80 (BP Location: Left arm, Patient Position: Sitting) Pulse 78 Physical Exam Vitals reviewed. HENT: Head: Normocephalic. Right Ear: Tympanic membrane normal. Left Ear: Tympanic membrane normal. Mouth/Throat: Mouth: Mucous membranes are moist. Pharynx: No oropharyngeal exudate. Pulmonary: Effort: Pulmonary effort is normal. Breath sounds: Normal breath sounds. Musculoskeletal: Cervical back: No rigidity. Lymphadenopathy: Cervical: No cervical adenopathy. Neurological: General: No focal deficit present. Psychiatric: Mood and Affect: Mood normal. Assessment/Plan Problem List Items Addressed This Visit Dysfunction of both eustachian tubes - Primary Relevant Medications fluticasone (Flonase) 50 mcg/actuation nasal spray Autoinsufflation and flonase recommended, call if persists. Advised flonase generally felt safe during , call concerns. Ayaka Baxter MD documented in this encounter [facility] Work Phone: 06-02-2024 Progress note Formatting of t his note might be different from the original. SW- Pt doing well. No ctx, vb, lof. Good FM PE: Gen- NAD, well appearing Abd- Soft, gravid, NT See flowsheet A/p 37 wk gestation - Obesity: Cont weekly NST's - Discussed upcoming expectations - RTO 1 wk Suni Mcmillan DO [facility] 06-02-2024 Miscellaneous Notes SW- Pt doing well. No ctx, vb, lof. Good FM PE: Gen- NAD, well appearing Abd- Soft, gravid, NT See flowsheet A/p 37 wk gestation - Obesity: Cont weekly NST's - Discussed upcoming expectations - RTO 1 wk Suni Mcmillan DO documented in this encounter [facility] 06-02-2024 Note HNO ID: [id number] Author: SUNI MCMILLAN MD Service: ? Author Type: Physician Type: Progress Notes Filed: 06/05/2024 16:42 Note Text: NST SUMMARY PROVIDER ASSESSMENT AND INTERPRETATION Cherry Morel is a 24 year old female, , who is at 37w0d with an ROSA of 06/23/2024, by Last Menstrual Period dating method. Indications for NST: Obesity Baseline: 130 Variability: Moderate Accelerations: Present 15 X 15 Decelerations: None Contractions: TOCO: None Interpretation: Reactive SIGNATURE: Suni Mcmillan DO [facility] 06-02-2024 History of Present illness Narrative NST SUMMARY PROVIDER ASSESSMENT AND INTERPRETATION Cherry Morel is a 24 year old female, , who is at 37w0d with an ROSA of 06/23/2024, by Last Menstrual Period dating method. Indications for NST: Obesity Baseline: 130 Variability: Moderate Accelerations: Present 15 X 15 Decelerations: None Contractions: TOCO: None Interpretation: Reactive SIGNATURE: Suni Mcmillan DO documented in this encounter [facility] 06-02-2024 Judith Mercado LPN - 06/02/2024 1:56 PM EDT SEQUENTIAL SCREENINGS The [facility] offers sequential screenings for women who are interested in screenings for chromosomal abnormalities and certain defects during a . The sequential screen combines ultrasound and blood tests to determine the risk of chromosomal abnormalities, including Down's Syndrome (Trisomy 21) and Trisomy 18, as well as open neural tube defects including spina bifida. Ultrasound examination is performed between 11 weeks and 13 weeks gestational age. Blood tests are drawn after the ultrasound and again later in the between 15 and 21 weeks gestational age. Please let your physician know if you are interested in this testing. It will require an appointment with our battery technician. This is not an ultrasound performed by a physician in our office during a routine visit. SIGNS AND SYMPTOMS OF LABOR 1. Contractions every 10 minutes or more often 2. Clear, pink, or brownish fluid (water) leaking from vagina 3. Feeling that baby is pushing down, pressure 4. Low, dull backache 5. Cramps that feel like a period 6. Cramps with or without diarrhea If you notice any of the above symptoms, contact our office at [phone] and ask to speak with a nurse. After hours, you can call doctors registry at [phone] OR call [facility] at [phone] and ask to have the doctor immigration inspector paged. If you consider this an emergency, dial 9--9 or go to your nearest emergency department. NEED HELP? Are you dealing with a violent or abusive relationship? Are you a victim of rape or sexual assult? Call [facility] ([place]) 24 hour Crisis Hotline: 600.461.3950 or 369-662-7724. MANUAL Your Guide to a Healthy manual is now on-line. Visit [email or web address] [email or web address] to download your free copy documented in this encounter [facility] 05-26-2024 Note HNO ID: [id number] Author: CHERRY SOLORZANO APRN.CNP Service: ? Author Type: Nurse Practitioner Type: Procedures Filed: 05/26/2024 13:45 Note Text: NST SUMMARY PROVIDER ASSESSMENT AND INTERPRETATION Indications for NST: Obesity Baseline: 140 Variability: Moderate Accelerations: Present 15 X 15 Decelerations: None Interpretation: Reactive SIGNATURE: Cherry Solorzano APRN.CNP [facility] 05-26-2024 Procedure note NST SUMMARY PROVIDER ASSESSMENT AND INTERPRETATION Indications for NST: Obesity Baseline: 140 Variability: Moderate Accelerations: Present 15 X 15 Decelerations: None Interpretation: Reactive SIGNATURE: Cherry Solorzano APRN.CNP [facility] 05-26-2024 Procedure note NST SUMMARY PROVIDER ASSESSMENT AND INTERPRETATION Indications for NST: Obesity Baseline: 140 Variability: Moderate Accelerations: Present 15 X 15 Decelerations: None Interpretation: Reactive SIGNATURE: Cherry Solorzano APRN.CNP documented in this encounter [facility] 05-26-2024 Progress note Formatting of t his note might be different from the original. EH - S: Cherry is a 24 year old female who presents at 36w0d for a routine visit. Feeling movement. Denies headache, visual changes, chest pain, shortness of breath, vaginal bleeding, leakage of fluid, or dysuria. Some muscle cramps in legs. O: See flow sheet Gen: No apparent distress Abd: Gravid, nontender ASSESSMENT/PLAN: 1. Encounter for supervision of high risk in third trimester, antepartum - ICD9: V23.9, ICD10: O09.93 (primary diagnosis) 2. 36 weeks gestation of - ICD9: V22.2, ICD10: Z3A.36 - GBS today - Beside ultrasound confirms cephalic 3. Anemia complicating , third trimester - ICD9: 648.23, 285.9, ICD10: O99.013 - Continue oral iron - 10.8 on 04/17 4. Obesity affecting in third trimester, unspecified obesity type - ICD9: 649.13, ICD10: O99.213 - NST reactive today, growth ordered - Continue weekly NSTs PTL precautions and kick counts reviewed. Pre e precautions reviewed. RTO in 1 week or sooner as needed. Cherry Solorzano APRN.CNP [facility] 05-26-2024 Instructions Scott Zacarias MA - 05/26/2024 1:06 PM EDT SEQUENTIAL SCREENINGS The [facility] offers sequential screenings for women who are interested in screenings for chromosomal abnormalities and certain defects during a . The sequential screen combines ultrasound and blood tests to determine the risk of chromosomal abnormalities, including Down's Syndrome (Trisomy 21) and Trisomy 18, as well as open neural tube defects including spina bifida. Ultrasound examination is performed between 11 weeks and 13 weeks gestational age. Blood tests are drawn after the ultrasound and again later in the between 15 and 21 weeks gestational age. Please let your physician know if you are interested in this testing. It will require an appointment with our battery technician. This is not an ultrasound performed by a physician in our office during a routine visit. SIGNS AND SYMPTOMS OF LABOR 1. Contractions every 10 minutes or more often 2. Clear, pink, or brownish fluid (water) leaking from vagina 3. Feeling that baby is pushing down, pressure 4. Low, dull backache 5. Cramps that feel like a period 6. Cramps with or without diarrhea If you notice any of the above symptoms, contact our office at [phone] and ask to speak with a nurse. After hours, you can call doctors registry at [phone] OR call [facility] at [phone] and ask to have the doctor immigration inspector paged. If you consider this an emergency, dial 91-7 or go to your nearest emergency department. NEED HELP? Are you dealing with a violent or abusive relationship? Are you a victim of rape or sexual assult? Call [facility] ([place]) 24 hour Crisis Hotline: 121.353.5519 or 613-850-6812. MANUAL Your Guide to a Healthy manual is now on-line. Visit [email or web address] to download your free copy documented in this encounter [facility] 05-26-2024 Miscellaneous Notes EH - S: Cherry is a 24 year old female who presents at 36w0d for a routine visit. Feeling movement. Denies headache, visual changes, chest pain, shortness of breath, vaginal bleeding, leakage of fluid, or dysuria. Some muscle cramps in legs. O: See flow sheet Gen: No apparent distress Abd: Gravid, nontender ASSESSMENT/PLAN: 1. Encounter for supervision of high risk in third trimester, antepartum - ICD9: V23.9, ICD10: O09.93 (primary diagnosis) 2. 36 weeks gestation of - ICD9: V22.2, ICD10: Z3A.36 - GBS today - Beside ultrasound confirms cephalic 3. Anemia complicating , third trimester - ICD9: 648.23, 285.9, ICD10: O99.013 - Continue oral iron - 10.8 on 04/17 4. Obesity affecting in third trimester, unspecified obesity type - ICD9: 649.13, ICD10: O99.213 - NST reactive today, growth ordered - Continue weekly NSTs PTL precautions and kick counts reviewed. Pre e precautions reviewed. RTO in 1 week or sooner as needed. Cherry Solorzano APRN.CREATIVE WRITING PROFESSOR documented in this encounter [facility] 05-12-2024 Progress note Formatting of t his note might be different from the original. RR- VB No. LOF No. CTXS No. Movement: present. Other c/o: No. Medication list reviewed. Physical Exam See Flow Sheet Abd: soft, nontender, gravid Ext: edema: Trace A/P 34w0d Estimated Date of Delivery: 06/23/24 kick counts f/ui in 2 weeks or prn GBS next visit antepartum anemia, last hgb 10.8 cont. pnv and fe start nsts at 36 weeks. Growth scan up to date Alexis Velazquez M.D. [facility] 05-12-2024 Miscellaneous Notes RR- VB No. LOF No. CTXS No. Movement: present. Other c/o: No. Medication list reviewed. Physical Exam See Flow Sheet Abd: soft, nontender, gravid Ext: edema: Trace A/P 34w0d Estimated Date of Delivery: 06/23/24 kick counts f/ui in 2 weeks or prn GBS next visit antepartum anemia, last hgb 10.8 cont. pnv and fe start nsts at 36 weeks. Growth scan up to date Alexis Velazquez M.D. documented in this encounter [facility] 05-12-2024 Instructions Sabrina Mijares MA - 05/12/2024 1:26 PM EDT SEQUENTIAL SCREENINGS The [facility] offers sequential screenings for women who are interested in screenings for chromosomal abnormalities and certain defects during a . The sequential screen combines ultrasound and blood tests to determine the risk of chromosomal abnormalities, including Down's Syndrome (Trisomy 21) and Trisomy 18, as well as open neural tube defects including spina bifida. Ultrasound examination is performed between 11 weeks and 13 weeks gestational age. Blood tests are drawn after the ultrasound and again later in the between 15 and 21 weeks gestational age. Please let your physician know if you are interested in this testing. It will require an appointment with our battery technician. This is not an ultrasound performed by a physician in our office during a routine visit. SIGNS AND SYMPTOMS OF LABOR 1. Contractions every 10 minutes or more often 2. Clear, pink, or brownish fluid (water) leaking from vagina 3. Feeling that baby is pushing down, pressure 4. Low, dull backache 5. Cramps that feel like a period 6. Cramps with or without diarrhea If you notice any of the above symptoms, contact our office at [phone] and ask to speak with a nurse. After hours, you can call doctors registry at [phone] OR call [facility] at [phone] and ask to have the doctor immigration inspector paged. If you consider this an emergency, dial 9-1-1 or go to your nearest emergency department. NEED HELP? Are you dealing with a violent or abusive relationship? Are you a victim of rape or sexual assult? Call [facility] [facility] 24 hour Crisis Hotline: 108.330.6645 or 733-574-7565. MANUAL Your Guide to a Healthy manual is now on-line. Visit [email or web address] to download your free copy documented in this encounter [facility] 04-30-2024 Note Indication Detailed anatomic survey. Evaluation of growth. Discrepancy between uterine size and clinical dates. Maternal obesity, BMI >30 Impression REMOTE READ The patient is referred for a detailed anatomic survey. - Single, live, intrauterine . - biometry is consistent with the established gestational age. - No malformations were visualized on a detailed anatomic survey within limits of later gestational age, although some anatomical structures were suboptimally seen as detailed below. - The amniotic fluid volume is normal amount. - The placenta is anterior, fundal. - Not all structural malformations can be detected by ultrasound examination. Recommendations Additional follow-up as clinically indicated. Maternal Assessment Height 165 cm Height (ft) 5 ft Height (in) 5 in Physical Exam Initial weight (lb) 233 lb Initial BMI 38.77 kg/m Method Transabdominal ultrasound examination. View: Suboptimal view: limited by maternal body habitus. Suboptimal view: limited by position. Suboptimal view: limited by late gestational age Ramirez . Number of fetuses: 1 Dating LMP on: 09/17/2023 GA by LMP 32 w + 2 d ROSA by LMP: 06/23/2024 Ultrasound examination on: 04/30/2024 GA by U/S based upon: AC, BPD, Femur, HC GA by U/S 32 w + 1 d ROSA by U/S: 06/24/2024 Assigned: based on the LMP, selected on 04/30/2024 Assigned GA 32 w + 2 d Assigned ROSA: 06/23/2024 General Evaluation Cardiac activity present. FHR 129 bpm. movements: present. Presentation: cephalic Placenta: Placental site: anterior, fundal Umbilical cord: Cord vessels: 3 vessel cord. Insertion site: normal insertion Amniotic fluid: Amount of AF: normal amount. MVP 2.8 cm. LEONARDO 9.2 cm. Q1 2.4 cm, Q2 1.7 cm, Q3 2.3 cm, Q4 2.8 cm Growth Overview Exam date GA BPD (mm) HC (mm) AC (mm) FL (mm) HL (mm) EFW (g) 04/30/2024 32w 2d 82.9 73% 296.3 42% 282.3 49% 59.9 29% 52.3 11% 1882 31% Biometry Standard BPD 82.9 mm 33w 2d 73% Hadlock OFD 103.2 mm 30w 3d 24% Nicolaides HC 296.3 mm 31w 6d 42% Alonso Cerebellum tr 43.1 mm 33w 5d 73% Hill AC 282.3 mm 32w 2d 49% Hadlock Femur 59.9 mm 31w 1d 29% Alonso Humerus 52.3 mm 30w 3d 11% Alonso EFW 1,882 g 31w 5d 31% Hadlock EFW (lb) 4 lb EFW (oz) 2 oz EFW by: Hadlock (HC-AC-FL) Extended Varnish Supervisor 4.8 mm CM 12.2 mm Extremities / Bony Struc FL / HC 0.20 Other Structures FHR 129 bpm Anatomy Cranium: normal Lateral ventricles: normal Choroid plexus: normal Midline falx: normal Cavum septi pellucidi: normal Cerebellum: normal Cisterna magna: normal Head / Neck Vermis: normal Neck: normal Lips: not visualized Profile: suboptimal Nose: suboptimal Face Maxilla: suboptimal Mandible: suboptimal Orbits: suboptimal Lens: suboptimal 4-chamber view: normal RVOT view: normal LVOT view: normal 3-vessel view: normal 8-[id number] view: normal Heart / Thorax Situs: situs solitus (normal) Aortic arch view: suboptimal SVC: normal IVC: normal Cardiac axis: normal Rt lung: normal Lt lung: normal Diaphragm: normal Cord insertion: normal Stomach: normal Kidneys: normal Bladder: normal Genitals: normal Abdomen Abdom. wall: normal Cervical spine: normal Thoracic spine: normal Lumbar spine: normal Sacral spine: normal Arms: normal Legs: normal Rt upper arm: normal Rt forearm: normal Rt hand: suboptimal Rt fingers: suboptimal Lt upper arm: normal Lt forearm: normal Lt hand: normal Lt fingers: suboptimal Rt upper leg: normal Rt lower leg: normal Rt foot: normal Rt toes: suboptimal Lt upper leg: normal Lt lower leg: normal Lt foot: normal Lt toes: suboptimal Position of feet: suboptimal Gender: Unspecified sex: normal Wants to know sex: no Maternal Structures Uterus / Cervix Uterus: Visualized Ovaries / Tubes / Adnexa Rt ovary: Normal Lt ovary: Not visualized Performed By: Keyla Rainey RDMS Read By: Ana Melton M.D. [facility] 04-30-2024 Progress note Formatting of t his note might be different from the original. DM-Pt doing well. Denies vaginal Bleeding, Leaking fluid, or regular Contractions. Pt reports good movement Physical Exam: Gen: female in no apparent distress Abd: soft, Gravid. Non tender to palpation. See flow sheet @ 32.2 weeks Assessment & Plan Obesity affecting in third trimester, unspecified obesity type Growth us pending today, NSTs starting 36 weeks , Never started ASA (transfer of care) Anemia complicating , third trimester Continue PO iron Encounter for supervision of high risk in third trimester, antepartum 32 weeks gestation of -RTO 2 weeks, kick counts and labor reviewed Jany Avery MD [facility] 04-30-2024 Miscellaneous Notes DM-Pt doing well. Denies vaginal Bleeding, Leaking fluid, or regular Contractions. Pt reports good movement Physical Exam: Gen: female in no apparent distress Abd: soft, Gravid. Non tender to palpation. See flow sheet @ 32.2 weeks Assessment & Plan Obesity affecting in third trimester, unspecified obesity type Growth us pending today, NSTs starting 36 weeks , Never started ASA (transfer of care) Anemia complicating , third trimester Continue PO iron Encounter for supervision of high risk in third trimester, antepartum 32 weeks gestation of -RTO 2 weeks, kick counts and labor reviewed Jany Avery MD documented in this encounter [facility] 04-30-2024 Instructions Hannah Delgado LPN - 04/30/2024 2:33 PM EDT SEQUENTIAL SCREENINGS The [facility] offers sequential screenings for women who are interested in screenings for chromosomal abnormalities and certain defects during a . The sequential screen combines ultrasound and blood tests to determine the risk of chromosomal abnormalities, including Down's Syndrome (Trisomy 21) and Trisomy 18, as well as open neural tube defects including spina bifida. Ultrasound examination is performed between 11 weeks and 13 weeks gestational age. Blood tests are drawn after the ultrasound and again later in the between 15 and 21 weeks gestational age. Please let your physician know if you are interested in this testing. It will require an appointment with our battery technician. This is not an ultrasound performed by a physician in our office during a routine visit. SIGNS AND SYMPTOMS OF LABOR 1. Contractions every 10 minutes or more often 2. Clear, pink, or brownish fluid (water) leaking from vagina 3. Feeling that baby is pushing down, pressure 4. Low, dull backache 5. Cramps that feel like a period 6. Cramps with or without diarrhea If you notice any of the above symptoms, contact our office at [phone] and ask to speak with a nurse. After hours, you can call doctors registry at [phone] OR call [facility] at [phone] and ask to have the doctor immigration inspector paged. If you consider this an emergency, dial 6-6-8 or go to your nearest emergency department. NEED HELP? Are you dealing with a violent or abusive relationship? Are you a victim of rape or sexual assult? Call [facility] ([place]) 24 hour Crisis Hotline: 574.920.1276 or 004-432-4528. MANUAL Your Guide to a Healthy manual is now on-line. Visit [email or web address] to download your free copy SEQUENTIAL SCREENINGS The [facility] offers sequential screenings for women who are interested in screenings for chromosomal abnormalities and certain defects during a . The sequential screen combines ultrasound and blood tests to determine the risk of chromosomal abnormalities, including Down's Syndrome (Trisomy 21) and Trisomy 18, as well as open neural tube defects including spina bifida. Ultrasound examination is performed between 11 weeks and 13 weeks gestational age. Blood tests are drawn after the ultrasound and again later in the between 15 and 21 weeks gestational age. Please let your physician know if you are interested in this testing. It will require an appointment with our battery technician. This is not an ultrasound performed by a physician in our office during a routine visit. SIGNS AND SYMPTOMS OF LABOR 1. Contractions every 10 minutes or more often 2. Clear, pink, or brownish fluid (water) leaking from vagina 3. Feeling that baby is pushing down, pressure 4. Low, dull backache 5. Cramps that feel like a period 6. Cramps with or without diarrhea If you notice any of the above symptoms, contact our office at [phone] and ask to speak with a nurse. After hours, you can call doctors registry at [phone] OR call [facility] at [phone] and ask to have the doctor immigration inspector paged. If you consider this an emergency, dial 9-1-3 or go to your nearest emergency department. NEED HELP? Are you dealing with a violent or abusive relationship? Are you a victim of rape or sexual assult? Call [facility] ([place]) 24 hour Crisis Hotline: 537.661.1432 or 067-284-2152. MANUAL Your Guide to a Healthy manual is now on-line. Visit [email or web address] to download your free copy documented in this encounter [facility] 04-29-2024 Telephone encounter Note Filed Madonna Bartholomew MD [facility] Work Phone: 04-29-2024 Miscellaneous Notes Filed Madonna Bartholomew MD Patient needs to schedule 32 week growth ultrasound. Please approve order documented in this encounter [facility] 04-29-2024 Telephone encounter Note Patient needs to schedule 32 week growth ultrasound. Please approve order [facility] 04-17-2024 Instructions Annel Stack LPN - 04/17/2024 2:36 PM EDT SEQUENTIAL SCREENINGS The [facility] offers sequential screenings for women who are interested in screenings for chromosomal abnormalities and certain defects during a . The sequential screen combines ultrasound and blood tests to determine the risk of chromosomal abnormalities, including Down's Syndrome (Trisomy 21) and Trisomy 18, as well as open neural tube defects including spina bifida. Ultrasound examination is performed between 11 weeks and 13 weeks gestational age. Blood tests are drawn after the ultrasound and again later in the between 15 and 21 weeks gestational age. Please let your physician know if you are interested in this testing. It will require an appointment with our battery technician. This is not an ultrasound performed by a physician in our office during a routine visit. SIGNS AND SYMPTOMS OF LABOR 1. Contractions every 10 minutes or more often 2. Clear, pink, or brownish fluid (water) leaking from vagina 3. Feeling that baby is pushing down, pressure 4. Low, dull backache 5. Cramps that feel like a period 6. Cramps with or without diarrhea If you notice any of the above symptoms, contact our office at [phone] and ask to speak with a nurse. After hours, you can call doctors registry at [phone] OR call [facility] at [phone] and ask to have the doctor immigration inspector paged. If you consider this an emergency, dial 5-8-4 or go to your nearest emergency department. NEED HELP? Are you dealing with a violent or abusive relationship? Are you a victim of rape or sexual assult? Call [facility] ([place]) 24 hour Crisis Hotline: 378.981.3151 or 494-946-5015. MANUAL Your Guide to a Healthy manual is now on-line. Visit [email or web address] to download your free copy documented in this encounter [facility] 04-17-2024 Miscellaneous Notes EH - S: Cherry is a 23 year old female who presents at 30w3d for a routine visit. Feeling movement. Denies headache, visual changes, chest pain, shortness of breath, vaginal bleeding, leakage of fluid, or dysuria. O: See flow sheet Gen: No apparent distress Abd: Gravid, nontender, S>D ASSESSMENT/PLAN: 1. Encounter for supervision of high risk in third trimester, antepartum - ICD9: V23.9, ICD10: O09.93 (primary diagnosis) 2. 30 weeks gestation of - ICD9: V22.2, ICD10: Z3A.30 - Passed GTT 3. Anemia complicating , third trimester - ICD9: 648.23, 285.9, ICD10: O99.013 - 10.7 on 04/02/24 - Has not started iron, encouraged 4. Obesity affecting in third trimester, unspecified obesity type - ICD9: 649.13, ICD10: O99.213 - Pre BMI 38 - Plan for 32 week growth q 4 weeks. Weekly NSTs at 36 weeks. 5. Dizziness - ICD9: 780.4, ICD10: R42 - Passed out yesterday, did not hit abdomen - Had a migraine and light cramping - 1st day back at work - History of POTS - Discussed anemia and recommend starting iron - To increase hydration. Migraine now resolved. To notify if this happens again. - CBC and CMP ordered PTL precautions and kick counts reviewed. RTO in 2 weeks or sooner as needed. Cherry Solorzano APRN.ARABELLA documented in this encounter [facility] 04-17-2024 Progress note Formatting of t his note might be different from the original. EH - S: Cherry is a 23 year old female who presents at 30w3d for a routine visit. Feeling movement. Denies headache, visual changes, chest pain, shortness of breath, vaginal bleeding, leakage of fluid, or dysuria. O: See flow sheet Gen: No apparent distress Abd: Gravid, nontender, S>D ASSESSMENT/PLAN: 1. Encounter for supervision of high risk in third trimester, antepartum - ICD9: V23.9, ICD10: O09.93 (primary diagnosis) 2. 30 weeks gestation of - ICD9: V22.2, ICD10: Z3A.30 - Passed GTT 3. Anemia complicating , third trimester - ICD9: 648.23, 285.9, ICD10: O99.013 - 10.7 on 04/02/24 - Has not started iron, encouraged 4. Obesity affecting in third trimester, unspecified obesity type - ICD9: 649.13, ICD10: O99.213 - Pre BMI 38 - Plan for 32 week growth q 4 weeks. Weekly NSTs at 36 weeks. 5. Dizziness - ICD9: 780.4, ICD10: R42 - Passed out yesterday, did not hit abdomen - Had a migraine and light cramping - 1st day back at work - History of POTS - Discussed anemia and recommend starting iron - To increase hydration. Migraine now resolved. To notify if this happens again. - CBC and CMP ordered PTL precautions and kick counts reviewed. RTO in 2 weeks or sooner as needed. Cherry Solorzano APRN.CREATIVE WRITING PROFESSOR [facility] 04-02-2024 Progress note Formatting of t his note might be different from the original. S: Cherry Morel is a 23 year old female who presents at 28 weeks for a routine visit. Denies headache, visual changes, chest pain, shortness of breath, vaginal bleeding, leakage of fluid, or dysuria. Feeling well, no complaints. O: See flow sheet Gen: No apparent distress Abd: Gravid, nontender 1. History of depression - ICD9: V11.8, ICD10: Z86.59 (primary diagnosis) 2. 28 weeks gestation of - ICD9: V22.2, ICD10: Z3A.28 3. Supervision of high risk in third trimester - ICD9: V23.9, ICD10: O09.93 4. Obesity affecting in third trimester, unspecified obesity type - ICD9: 649.13, ICD10: O99.213 5. Need for vaccination - ICD9: V05.9, ICD10: Z23 - 1 hour GCT, CBC, and RPR today - Rh positive - TDAP today - LARC form reviewed and signed. Patient declines- Would like Mirena IUD at 8 weeks PP - Depression screen negative - Opioid screen negative - plan form discussed and given to patient. Patient desires unmedicated , and - PTL precautions and kick counts reviewed - RTO- 2 weeks or sooner if needed - BMI- Pregravid is 38- will need NST and growth at 32 weeks 1) PTL precautions reviewed and when to call 2) RTO 2 week Chelo Porter APRN.CNM [facility] 04-02-2024 Miscellaneous Notes S: Cherry Morel is a 23 year old female who presents at 28 weeks for a routine visit. Denies headache, visual changes, chest pain, shortness of breath, vaginal bleeding, leakage of fluid, or dysuria. Feeling well, no complaints. O: See flow sheet Gen: No apparent distress Abd: Gravid, nontender 1. History of depression - ICD9: V11.8, ICD10: Z86.59 (primary diagnosis) 2. 28 weeks gestation of - ICD9: V22.2, ICD10: Z3A.28 3. Supervision of high risk in third trimester - ICD9: V23.9, ICD10: O09.93 4. Obesity affecting in third trimester, unspecified obesity type - ICD9: 649.13, ICD10: O99.213 5. Need for vaccination - ICD9: V05.9, ICD10: Z23 - 1 hour GCT, CBC, and RPR today - Rh positive - TDAP today - LARC form reviewed and signed. Patient declines- Would like Mirena IUD at 8 weeks PP - Depression screen negative - Opioid screen negative - plan form discussed and given to patient. Patient desires unmedicated , and - PTL precautions and kick counts reviewed - RTO- 2 weeks or sooner if needed - BMI- Pregravid is 38- will need NST and growth at 32 weeks 1) PTL precautions reviewed and when to call 2) RTO 2 week Chelo Porter APRN.CNM documented in this encounter [facility] 04-02-2024 Note HNO ID: [id number] Author: SCOTT ZACARIAS MA Service: ? Author Type: [employer] Type: Progress Notes Filed: 04/02/2024 13:22 Note Text: Patient identified by name and date of . Cherry Morel presents today for a vaccination of Tdap. Patient denies an allergy to latex: yes Patient denies a severe (life-threatening) allergy to a previous dose of Tdap, DTP, DTaP, DT or Td vaccine. Yes Patient denies history of epilepsy or neurological problems: Yes Patient is afebrile and denies being moderately or severely ill: Yes Patient denies history of Guillain-Herrick Syndrome (a severe paralytic illness): Yes Tdap Adacel injection was given without incident. See immunizations for details of immunizations administered today. VIS sheet provided: Yes Provider Chelo Porter APRN CNM was present in office at time of injection. Scott Zacarias MA [facility] 04-02-2024 History of Present illness Narrative Patient identified by name and date of . Cherry Morel presents today for a vaccination of Tdap. Patient denies an allergy to latex: yes Patient denies a severe (life-threatening) allergy to a previous dose of Tdap, DTP, DTaP, DT or Td vaccine. Yes Patient denies history of epilepsy or neurological problems: Yes Patient is afebrile and denies being moderately or severely ill: Yes Patient denies history of Guillain-Herrick Syndrome (a severe paralytic illness): Yes Tdap Adacel injection was given without incident. See immunizations for details of immunizations administered today. VIS sheet provided: Yes Provider Chelo Porter APRN CNM was present in office at time of injection. Scott Zacarias MA documented in this encounter [facility] 04-02-2024 Instructions Scott Zacarias MA - 04/02/2024 11:03 AM EDT SEQUENTIAL SCREENINGS The [facility] offers sequential screenings for women who are interested in screenings for chromosomal abnormalities and certain defects during a . The sequential screen combines ultrasound and blood tests to determine the risk of chromosomal abnormalities, including Down's Syndrome (Trisomy 21) and Trisomy 18, as well as open neural tube defects including spina bifida. Ultrasound examination is performed between 11 weeks and 13 weeks gestational age. Blood tests are drawn after the ultrasound and again later in the between 15 and 21 weeks gestational age. Please let your physician know if you are interested in this testing. It will require an appointment with our battery technician. This is not an ultrasound performed by a physician in our office during a routine visit. SIGNS AND SYMPTOMS OF LABOR 1. Contractions every 10 minutes or more often 2. Clear, pink, or brownish fluid (water) leaking from vagina 3. Feeling that baby is pushing down, pressure 4. Low, dull backache 5. Cramps that feel like a period 6. Cramps with or without diarrhea If you notice any of the above symptoms, contact our office at [phone] and ask to speak with a nurse. After hours, you can call doctors registry at [phone] OR call [facility] at [phone] and ask to have the doctor immigration inspector paged. If you consider this an emergency, dial 91-5 or go to your nearest emergency department. NEED HELP? Are you dealing with a violent or abusive relationship? Are you a victim of rape or sexual assult? Call [facility] ([place]) 24 hour Crisis Hotline: 315.955.4264 or 428-668-5234. MANUAL Your Guide to a Healthy manual is now on-line. Visit [email or web address] to download your free copy documented in this encounter [facility] 03-25-2024 Note HNO ID: [id number] Author: MADONNA BARTHOLOMEW MD Service: ? Author Type: Physician Type: Progress Notes Filed: 03/25/2024 10:56 Note Text: NST SUMMARY PROVIDER ASSESSMENT AND INTERPRETATION Cherry Morel is a 23 year old female, , who is at 27w1d with an ROSA of 06/23/2024, by Last Menstrual Period dating method. Indications for NST: Decreased Movement Baseline: 140 Variability: Moderate Accelerations: Present 10 X 10 Decelerations: Variable Contractions: TOCO: None Interpretation: Reactive SIGNATURE: Madonna Bartholomew MD [facility] 03-25-2024 History of Present illness Narrative NST SUMMARY PROVIDER ASSESSMENT AND INTERPRETATION Cherry Morel is a 23 year old female, , who is at 27w1d with an ROSA of 06/23/2024, by Last Menstrual Period dating method. Indications for NST: Decreased Movement Baseline: 140 Variability: Moderate Accelerations: Present 10 X 10 Decelerations: Variable Contractions: TOCO: None Interpretation: Reactive SIGNATURE: Madonna Bartholomew MD documented in this encounter [facility] 03-25-2024 Instructions Sabrina Mijares MA - 03/25/2024 9:51 AM EDT SEQUENTIAL SCREENINGS The [facility] offers sequential screenings for women who are interested in screenings for chromosomal abnormalities and certain defects during a . The sequential screen combines ultrasound and blood tests to determine the risk of chromosomal abnormalities, including Down's Syndrome (Trisomy 21) and Trisomy 18, as well as open neural tube defects including spina bifida. Ultrasound examination is performed between 11 weeks and 13 weeks gestational age. Blood tests are drawn after the ultrasound and again later in the between 15 and 21 weeks gestational age. Please let your physician know if you are interested in this testing. It will require an appointment with our battery technician. This is not an ultrasound performed by a physician in our office during a routine visit. SIGNS AND SYMPTOMS OF LABOR 1. Contractions every 10 minutes or more often 2. Clear, pink, or brownish fluid (water) leaking from vagina 3. Feeling that baby is pushing down, pressure 4. Low, dull backache 5. Cramps that feel like a period 6. Cramps with or without diarrhea If you notice any of the above symptoms, contact our office at [phone] and ask to speak with a nurse. After hours, you can call doctors registry at [phone] OR call [facility] at [phone] and ask to have the doctor immigration inspector paged. If you consider this an emergency, dial or go to your nearest emergency department. NEED HELP? Are you dealing with a violent or abusive relationship? Are you a victim of rape or sexual assult? Call [facility] ([place]) 24 hour Crisis Hotline: 210.505.1956 or 274-534-2083. MANUAL Your Guide to a Healthy manual is now on-line. Visit [email or web address] to download your free copy documented in this encounter [facility] 03-20-2024 Telephone encounter Note Consult order faxed. [facility] 03-20-2024 Miscellaneous Notes Consult order faxed. Consult placed. Cherry Solorzano APRN.ARABELLA Ob patient was seen today and would like a consult order for pelvic floor physical therapy. Pt. Would like order faxed to Rehab in [place]. documented in this encounter [facility] 03-20-2024 Instructions Cherry Solorzano APRN.CNP - 03/20/2024 3:14 PM EDT Images from the original note were not included. What is a Industrial Relations Specialist? Midwives in the [place] provide health care services to women of all ages.Industrial Relations Specialist means with woman. Midwives partner with women to help make important health decisions. Midwives work with other members of a woman s health care team when needed, but a bryologist may also be your primary care provider. There are 3 main types of midwives, and there are some differences in the services offered by each type of bryologist. What types of midwives are there? The 3 main types of midwives in the [place] are: Certified nurse-midwives (CNMs) Have a college degree in nursing and a master s degree in nurse-midwifery. CNMs are registered nurses (RNs) who have graduated from an accredited nurse-midwifery education programand passed a national certification exam. They must have a license to practice midwifery in the state where they work. CNMs work in all health care settings including hospitals, centers, and offices or clinics. CNMs provide general women s health care throughout a woman s lifetime, and they can prescribe most medications. Certified midwives (CMs) Are midwives with a bachelor s degree in a field other than nursing and a master s degree. They have the same midwifery education and pass the same national certification exam as CNMs. CMs must have a license to practice midwifery in the state where they work. CMs provide the same services and work in the same settings as CNMs. Certified professional midwives (CPMs) May have apprenticeship training, or they may graduate from an accredited formal education program. CPMs take a national certification exam that is not the same as the one CNMs and CMs take. The health care services providedbyCPMs are not as broad as those ofCNMsandCMs. CPMs provide , , andpostpartum care for women outside of the hospital--often in centers and homes. CPMs are not able to prescribe most medications, and they do notwork in hospitals. Most of the midwives in the [place] are CNMs. CNMs are licensed in all [address] [place] [address]. Not all states license CMs and CPMs. What do midwives do? All 3 types of midwives provide care towomen duringpregnancy, labor, , and the postpartumperiod.CNMs and CMs also provide general health services, annual checkups, contraception ( control), menopausal care, and treatment for common infections and health problems. CNMs and CMs care for about one of every 10 womenwho give each [facility].Most of these births are in hospitals.All 3 types of midwives care for women who have their babies in centers or at home, and CNMs and CMs also work in hospitals. Why would I choose a bryologist for care during my ? Midwives view and as normal life events that can be a healthy time in your life. Midwives are experts in knowing the difference between normal changes that occur and symptoms that require extra attention. Midwives specialize in providing support and education in addition to regular health care. They use evidence-based medical procedures when there is a specific concern for the health of you or your baby, and they work in partnership with physicians who can be available if needed. Midwives offer health care that respects the goals and choices of each individual woman and family. What if I have a high-risk or complication during labor? Your CNM or CM can prescribe medicine, order tests, and provide treatment for common illnesses that you might get during . Midwives work with physicians who specialize in complications of . If you have a medical problem during or complication during labor, your bryologist will work with a physician tomake sure you get the best and safest care for you and your baby.Midwives do not performsurgery. If you need to have a , the surgery will be done by the physician who works with yourmidwife. Your bryologist will also work with other health care providers: nurses, social workers, tool and die manager, doulas, childbirth educators, physical therapists, and other specialists to help you get the care you need. What if I want pain medicine during labor? Your bryologist will help you make decisions about how you are going to cope with your labor. If you want medicine to cope with pain during labor, your bryologist can help you get medicine that is available in the setting where you give . Midwives also know other ways help women cope with labor such as changing positions or being in a tub of water. These can be helpful in addition to pain medications. Questions to AskWhen Choosing a Industrial Relations Specialist for Your Care during and Questions to ask any bryologist If you work in a group, who will attend my ? Who attends births for you when you are away? What kind of childbirth preparation do you recommend? Do you provide labor support and stay with women throughout labor? How do you feel about doulas or family and friends being with me during labor? Do you allow moving around and eating or drinking during labor? Can I hold my baby right after , breastfeed, and not be ? When do you recommend IVs, heart rate monitoring, Pitocin, or episiotomy? Do you care for women who want a vaginal after a previous ? How much do you charge? Is your care paid for by my insurance? Questions to ask midwives who attend births in homes and centers Am I eligible to give in this setting? What equipment and drugs do you have? How do you handle problems during labor? When would we go to the hospital? Which hospital will I go to if a problem occurs during labor? How will I get there? How often do women in your practice go to the hospital during labor? Do you have a formal agreement with a physician to provide care if problems occur? Would you stay with me if we go to the hospital? Are you trained in resuscitation? Will you visit me at home after my baby is born? For More Information OurMoment of Truth:What Is a Industrial Relations Specialist? http://www.Ameibo.Southwest Nanotechnologies/W jco-zg-i-Industrial Relations Specialist Midwives [facility]:What Is a Industrial Relations Specialist? http://juani.org/about-midwives/wh ae-iu-j-bryologist Childbirth Connection: Choosing a Caregiver http://www.childbirthconnection.o rg/article.asp?LipoqgdZite=766&ck =31490&area=27 Our Bodies, Ourselves: Choosing a Maternity Care Provider http://www.ourbodiesourselves.org /health-info/uajcpazl-m-rvdzjvcfi -care-provider/ Please select the following link to access the [facility] Your Guide to a Healthy . www.Ccf.org/healthypregnancyguide Thank you for your interest in Women's Behavioral Health at [facility]. Your provider has referred you for counseling services. Below you will find a list of options. Psychotherapy Services at [facility] Call Behavioral Health Access Line at [phone] to schedule Individual psychotherapy In-person or virtual Wait time for first evaluation may be 12 or more weeks. Wait list spots may be available. Due to the high volume of patients this option is recommended if you are looking for short term acute symptom coping strategies. 8-669-5-RETE3NNTG - [place] Maternal Mental Health Hotline If you are in suicidal crisis, please call or text 4-413-192-TALK ( ) or visit the National Suicide Prevention Lifeline website. mchb.[facility] hospital[facility].gov If you are in crisis, call 911 or go to your nearest Emergency Department Here are some links for wonderful Providers here in the community and surrounding areas. Do not hesitate to contact their offices, many are offering virtual visits during this time. Psychotherapy Services outside of [facility] Support International Online Provider Directory https://AquarisPLUS Int/ - can assist in finding providers in your area that might be more extensive then the list below. [facility] - [place], [place] [address] [place] [address] [facility] [address] [place] [address] [facility] [address] [place] [address] [facility] [address] [place], [place] [address] Wm Ballesteros MD [address] [place], [place] [address] [facility] [address], [address] [place] [address] [facility]iatric Services [address] [place] [address] [facility] Counseling Services [place] / [place] [phone]/ [phone] Jimena Quintana [address] [facility] [phone] Aves of Counseling and Mediation [place] / [place] [phone] Behavior[facility] services [facility] [address] [place] [address]/ [place] [phone] Kendal Foley, ANGELICA, MISHA Parrymp and Beyond Family Therapy Workshops, telehealth and at home visits. [phone] Humanistic counseling center 20 locations [place], [place], [place], [place], [place], [place], [place], [facility], [place], [place], [place], [place], [place], [place], [facility], [place], [place] ,[facility], [place], [place],[facility], [facility], [place], [facility], [facility] wheatlandDorcas www.Gamarer.[facility] [phone] Psychotherapy resources outside of [facility] are listed below Holding Space Psychotherapy Web: https://www.PlayfishcleMetrigo/ Support International Online Provider Directory https://AquarisPLUS Int/ [facility]ight [facility] https://MagForce/ Partners for Behavioral Health and Wellness Web: https://Churn Labs/ Yummly for Effective Living Web: https://World Firstliving.Southwest Nanotechnologies/ LifeStance Web: https://Swarm64/location/s [place]/ [facility] Web: https://www.DealCloudl[facility].or / [facility] Web: https://-R- Ranch and Mine.Relationship Analytics/ Recovery Resources Mental health and substance abuse help Web: https://www.Zertos.Relationship Analytics & RESOURCES Support International Direct peer support and connection to professional resources Non-Emergency Helpline Phone: / Text: [phone] Web: https://www..net/ Online Provider Directory: https://AquarisPLUS Int/ Online Support Meetings: https://www..net/get-he lp/grd-wvzqkc-whkmayz-meetings/ SIRIA Baby and Manager Automotive Services Web: https://wwwMist.io/ MotherToAsana Expert information on medication use during and Text: [phone] Web: https://Cognection/ NATIONAL REGISTRY FOR PSYCHIATRIC MEDICATIONS Currently studying the safety of antidepressants, ADHD medications and atypical antipsychotics taken during TO PARTICIPATE CALL TOLL-FREE: Web: https://womensmentalhealth.org/re search/pregnancyregistry/ Support Groups: [facility]- Follow on facebook Baby Bistro support group led by [facility] department Resilient Mamas - Support Group [facility] Hospitalmas.org The POEM support group [phone] Www.poemonline.org Follow on facebook - STACIE fernandesmartinez iris Online support meetings PSI https://www..net/get-he lp/gbf-aibstm-hctzooe-meetings/ [facility] mommy and me virtual support group 11:30-1pm Support for mothers and new babies and toddlers [place] childbirth education: Childbirth @cc.org or call [phone] CRISIS: CRISIS HOTLINE [phone], 911 or go to the nearest ER. [facility] [phone] / [facility] [phone] https://www.[facility].org Crisis text line text the word HOME to 764050 [facility] [address] nathaly [address] [facility] [address] www.SLID Olesya Tsang clinical counseling [address] [address] www.TMMI (TMM Inc.) [phone] Holding [facility] psychotherapy Verito Camacho SUPERVISOR STATEMENT CLERKS INDUSTRIAL HYGIENE TECHNICIAN-S [address] [facility] www.Cardiac Systemz [phone]/ [place] [phone] They all offer virtual. All work with trauma Support groups Online support meetings PSI https://www..net/get-he lp/cdv-kgeqtk-wqadvfm-meetings/ Here are the support groups they offer: Support of parents of 1 to 4 years old children POEM ( Outreach and Encouragement for Moms) offers free support for mothers experiencing depression, anxiety, and other mood and anxiety disorders. Masks are recommended but not required. No pre-registration required. Babies in arms welcome. meetings now take place on the and Sunday of each month Location: [facility] [address] [place] [address] Room 122 (library room) 7-8:00 p.m. When you enter the worship parking lot off of [address] the entrance door closest to our meeting room is on the front of the building toward the right. For those who are more comfortable with a virtual platform, PORdio offers online support group options several days of the week. To register for an online group or to find out more about POEM, website at: https://Credoraxaohio.org/get-help/united health servicestrmd-npgnca-zoodpx/poem-services/ offer a confidential helpline: private Facebook group is called STACIE Juan Chapter Here are the groups they offer: Traumatic childbirth resources: Http://pattch.org/ https://www.AudiotoniqeddieGamemaster/ Name Location (s) Phone # (s) Services Website [facility] Psychotherapy [address] [place], [place] - [phone]; [address] [phone] In-Person GROUPS INDIVIDUAL THERAPY MATERNAL- MENTAL HEALTH MEDICATION MANAGEMENT PLAY AND ART THERAPY TELETHERAPY https://www.Whispering Gibbon/s ervices/ [facility]? [address] [address] ? [address] [place], [place] [address] ? [place] [address]? Grief Support Groups Individual Grief Counseling Spiritual Care Memorial Events https://martinez.[facility].org/grief-services [facility] [address] [place], [place] [address]; ; Email: taqueria@Walkabout Women's Mental Health; Couples Counseling; Trauma (EMDR); Stress Management; Mood and Anxiety Related Disorders- and much more https://www.ePub Direct.Southwest Nanotechnologies/ LifeStance Numerous as they have contract providers: access website to find specific providers near you Counseling including CBT and EMDR as well as many more modalities; Medication Management; Telehealth and In-Person https://1DocWay.Southwest Nanotechnologies/ Partners [facility] Behavioral Health and Wellness [address] [place], [place] [address]; [phone] Personal, Family and Group Therapy; Psychological Testing and Diagnosis; Medication Management; Life and Career Coaching; Psychoanalysis; Literacy Testing; Yoga and Meditation https://Churn Labs/ Hybrid Electric Vehicle Technologies [facility] [address] [facility] [address], [place] [address] [address] ; [address] [facility], [address] [place] [address]; Office # for both sites: Individual and Couples Counseling https://www.ShotSpotteravita health [facility].Southwest Nanotechnologies/ paymentinsurance.html OCD & Anxiety [facility] [address], [place] [address]; Specialize in Cognitive-Behavioral Therapy (CBT) for the treatment of anxiety disorders across the lifespan. TELEHEALTH ONLY. https://ocdandanxietycenteroKojamiv Zouxiu/faqs [facility] [address] [place], [address] [place] [address] [facility], [address] [place] [address] [facility] [place], [address] [place] [address] [place], [address], [address] [place], [address] [place] [address] [place], [address] Transportation Services To minimize patient barriers, [facility] provides transportation services to patients who qualify. If you are unable to get to your appointment at any of our facilities, please let us know. Need help now? Stop by one of our walk-in clinics to establish behavioral health care. Counseling Indvidual, Group, Couples and Family Counseling and EMDR. Medication Management Case Management benefits applications housing assistance Substance abuse treatment Medication assisted treatment https://www.[facility].or g/mental-health/ [facility] OFFICE AT [address] [place] [address] [facility] OFFICE [address] [place] [address] [facility] OFFICE [address] [place] [address] [facility] OFFICE (at [facility]) [address] [place] [address] [facility] EXCHANGE PROGRAM & HIV SCREENING [address] [place] [address] [facility] EXCHANGE PROGRAM [address] [place] [address] Behavioral Health Urgent Care: [facility] Sites Counseling Indvidual and Group Medication Management Case Management benefits applications housing assistance Substance abuse treatment Medication assisted treatment Employment Services/ Job Training https://-R- Ranch and Mine.org/ Recovery Resources [address] [place], [place] [address]: P: [phone] [address] [facility], [address], [place], [place] [address] P: [phone] Our services include: Addiction Mental Health Treatment Assessment Psychiatry Medical Care Employment Housing Drug and Alcohol Prevention HIV/AIDS Prevention https://www.recres.org/ [facility] [place] [address] [facility] [address] [place] [address] [address] [place], [place] [address] [place] [address] [place] [address] [place] [address] [facility] [address] [place] [address] [address] [address] [place] [address] TMS Therapy/ Counseling Psychocological Testing for ADHD Medication Management In-Person/ Telemedicine https://www.Lolly Wolly Doodle.com/marcia ents-depression Memory & Psychological services [address] [address], [place] [address] Neuropsychological Testing For ADHD https://www.memoryandpsych.com/ [facility] - Main Office [address] [place] [address] [address] Providing jhdg-wp-abjt and telehealth services. Adult Case Management Community Education and Prevention Employment Outpatient Treatment - Counseling & Psychotherapy Psychiatric Services http://www.ccu.s. [facility].org/ Ebb And Flow Counseling and Wellness [facility] [address] [place] [address] Bill [facility]) [address] [place] [address] Virtual Appointments! Now offering safe and convenient virtual client appointments to anyone in [place]! Individual Therapy Couples/Relationship Therapy Trauma/EMDR Therapy Art Therapy Play Therapy Greenskeeper Support: Parenting Skills, Parent Child Interaction Therapy, Parent Interaction Therapy Meditation Dietitian/Closing Coordinator Services Group Therapy Yoga https://www.Revantha Technologies/ Krissy Nogueira [phone] Private Practice: Telehealth Only Specializes in EMDR for Trauma None documented in this encounter [facility] 03-20-2024 Telephone encounter Note Consult placed. Cherry Solorzano APRN.CNP [facility] 03-20-2024 Telephone encounter Note Ob patient was seen today and would like a consult order for pelvic floor physical therapy. Pt. Would like order faxed to Rehab in [place]. [facility] 03-20-2024 Note HNO ID: [id number] Author: CHERRY SOLORZANO APRN.CNP Service: ? Author Type: Nurse Practitioner Type: Progress Notes Filed: 03/20/2024 15:14 Note Text: Adult Secondary Education Instructor offered: Patient declines. INITIAL OB ASSESSMENT HPI: Cherry is a 23 year old White here to establish Obstetrical Care. Patient's last menstrual period was 09/15/2023 (exact date). from OB Dating Form. was planned Complaints: No OB History T1 L1 SAB0 IAB0 Ectopic0 Multiple0 Live Births1 Comment: Has 2 long term children Previous history: Prior : never History of 4th degree laceration: No History of shoulder dystocia: No History of Hypertensive disorders including pre-eclampsia or gestational hypertension: No History of gestational diabetes: No Patient's Risk Screening for delivery: Have you had a prior ramirez between 20w and 36w6d? No How many pregnancies have you had before? 1 Did you have a previous baby with a GBS Infection? No Please select all that apply for any prior : N/A MEDICAL/PSYCHOSOCIAL HISTORY: History of hemorrhage or bleeding concerns: No Thyroid Disease: No History of chronic hypertension: No History of pre-existing diabetes: No No results found for: ABORHD No weight on file for this encounter. Last Pap: 12/21/2023 History of abnormal pap: No Prior treatment for cervical dysplasia: none. Last HPV: History of STDs: None Partner History of STDs: None Did you have a partner with Herpes? No Tobacco use: No E-Cigarette/Vaping Use: No Caffeine use: Yes 1 cup of coffee or soda a month Drug use: No Alcohol use: No Multivitamin with Folic acid: Yes Would refuse blood transfusion if medically necessary: No Social Needs: How often does this describe you? I don't have enough money to pay my bills: Never Within the past 12 months, have you worried that your food would run out before you had money to buy more? Never In the past 12 months, has lack of reliable transportation kept you from going to medical appointments or work, or from getting things needed for daily living? Never In the past 12 months, have you had any concerns about having a place to live, or about the condition or quality of your housing? Never Would you like more information on any of the following (please check all that apply)? Not interested Social History: Do you have any history of depression, anxiety, PTSD, or other mood problems? Yes Do you have a history of abuse or trauma that may impact your experience? No Are you currently employed? Yes , teacher Depression/Anxiety Screening: denies symptoms of depression. OB Depression and Anxiety Screening- This Encounter (since 03/19/2024) Over the past 2 weeks have you felt down, depressed, or hopeless? Negative Over the past two weeks, have you felt little interest or pleasure in doing things?? Negative Feeling nervous, anxious or on edge 0-Not at all Not being able to stop or control worrying 0-Not al all Anxiety Pre-Screening Total (If >/= 3 additional questions will be reviewed) 0 Genetic Screening: Partner present: No Patient verbalized knowledge of partner family health history: Yes Do you or your partner have any personal or family history of defects not previously discussed: No Do you have history of a complicated by anomaly, genetic condition, or demise: No OB Risk Screening: Completed, no positive findings documented. Marital Status: Partner: Name: Chris Age: 27 Occupation: assistant corporate secretary Gender: Male PAST MEDICAL HISTORY Diagnosis Date Breast disorder Breast mass 2021 benign right breawsst Cholestasis Depression/anxiety as a teenager , last took medication 2017 Mental disorder POTS (postural orthostatic tachycardia syndrome) diagnosed [facility]20[facility] Procedure Laterality Date BX OF BREAST; INCISIONAL Right PAST SURGICAL HISTORY OF Left Knee x 2 tibia osteotomy PAST SURGICAL HISTORY OF wisodm teeth Current Outpatient Medications Medication Sig Dispense Refill VIT 14-IRON FUM-FOLIC ORAL Take by mouth. No current facility-administered medications for this visit. Allergies As of Date: 03/20/2024 (No Known Allergies) Does patient have penicillin allergy: No REVIEW OF SYSTEMS: GENERAL: Negative for: Fever or Chills HEENT: Negative for: Headache, Impaired Vision, Ringing in Ears, Nosebleeds NECK: Negative for: Swelling, Pain, Stiffness RESPIRATORY: Negative for: Cough, Shortness of breath, Wheezing GASTROINTESTINAL: Negative for: Heartburn, Diarrhea, Blood in stool, Vomiting + constipation MUSCULOSKELETAL: Negative for: stiffness, Joint swelling + lower back pain NEUROLOGIC/PSYCHIATRIC: Negative for: Weakness, Paralysis, Numbness, Tingling, Tremor, Anxiety, Depression, Memory loss (more content not included)... [facility] 03-20-2024 History of Present illness Narrative Adult Secondary Education Instructor offered: Patient declines. INITIAL OB ASSESSMENT HPI: Cherry is a 23 year old White here to establish Obstetrical Care. Patient's last menstrual period was 09/15/2023 (exact date). from OB Dating Form. was planned Complaints: No OB History T1 L1 SAB0 IAB0 Ectopic0 Multiple0 Live Births1 Comment: Has 2 long term children Previous history: Prior : never History of 4th degree laceration: No History of shoulder dystocia: No History of Hypertensive disorders including pre-eclampsia or gestational hypertension: No History of gestational diabetes: No Patient's Risk Screening for delivery: Have you had a prior ramirez between 20w and 36w6d? No How many pregnancies have you had before? 1 Did you have a previous baby with a GBS Infection? No Please select all that apply for any prior : N/A MEDICAL/PSYCHOSOCIAL HISTORY: History of hemorrhage or bleeding concerns: No Thyroid Disease: No History of chronic hypertension: No History of pre-existing diabetes: No No results found for: ABORHD No weight on file for this encounter. Last Pap: 12/21/2023 History of abnormal pap: No Prior treatment for cervical dysplasia: none. Last HPV: History of STDs: None Partner History of STDs: None Did you have a partner with Herpes? No Tobacco use: No E-Cigarette/Vaping Use: No Caffeine use: Yes 1 cup of coffee or soda a month Drug use: No Alcohol use: No Multivitamin with Folic acid: Yes Would refuse blood transfusion if medically necessary: No Social Needs: How often does this describe you? I don't have enough money to pay my bills: Never Within the past 12 months, have you worried that your food would run out before you had money to buy more? Never In the past 12 months, has lack of reliable transportation kept you from going to medical appointments or work, or from getting things needed for daily living? Never In the past 12 months, have you had any concerns about having a place to live, or about the condition or quality of your housing? Never Would you like more information on any of the following (please check all that apply)? Not interested Social History: Do you have any history of depression, anxiety, PTSD, or other mood problems? Yes Do you have a history of abuse or trauma that may impact your experience? No Are you currently employed? Yes , teacher Depression/Anxiety Screening: denies symptoms of depression. OB Depression and Anxiety Screening- This Encounter (since 03/19/2024) Over the past 2 weeks have you felt down, depressed, or hopeless? Negative Over the past two weeks, have you felt little interest or pleasure in doing things? Negative Feeling nervous, anxious or on edge 0-Not at all Not being able to stop or control worrying 0-Not al all Anxiety Pre-Screening Total (If >/= 3 additional questions will be reviewed) 0 Genetic Screening: Partner present: No Patient verbalized knowledge of partner family health history: Yes Do you or your partner have any personal or family history of defects not previously discussed: No Do you have history of a complicated by anomaly, genetic condition, or demise: No OB Risk Screening: Completed, no positive findings documented. Marital Status: Partner: Name: Chris Age: 29 Occupation: assistant corporate secretary Gender: Male PAST MEDICAL HISTORY Diagnosis Date Breast disorder Breast mass 2021 benign right breawsst Cholestasis Depression/anxiety as a teenager , last took medication 2017 Mental disorder POTS (postural orthostatic tachycardia syndrome) [facility]20[facility] Procedure Laterality Date BX OF BREAST; INCISIONAL Right PAST SURGICAL HISTORY OF Left Knee x 2 tibia osteotomy PAST SURGICAL HISTORY OF wisodm teeth Current Outpatient Medications Medication Sig Dispense Refill VIT 14-IRON FUM-FOLIC ORAL Take by mouth. No current facility-administered medications for this visit. Allergies As of Date: 03/20/2024 (No Known Allergies) Does patient have penicillin allergy: No REVIEW OF SYSTEMS: GENERAL: Negative for: Fever or Chills HEENT: Negative for: Headache, Impaired Vision, Ringing in Ears, Nosebleeds NECK: Negative for: Swelling, Pain, Stiffness RESPIRATORY: Negative for: Cough, Shortness of breath, Wheezing GASTROINTESTINAL: Negative for: Heartburn, Diarrhea, Blood in stool, Vomiting + constipation MUSCULOSKELETAL: Negative for: stiffness, Joint swelling + lower back pain NEUROLOGIC/PSYCHIATRIC: Negative for: Weakness, Paralysis, Numbness, Tingling, Tremor, Anxiety, Depression, Memory loss SKIN: Negative for: Rash, Itching GENITOURINARY: Negative for: vaginal itching, vaginal discharge, hematuria or dysuria + stress incontinence PHYSICAL EXAM: BP 116/68 Pulse 96 Resp 12 Ht 5' 5.5 (1.66m) Wt 233 lb (105.7kg) SpO2 98% LMP 09/15/2023 BMI 38.17 kg/(m^2). GENERAL: pleasant in no apparent distress DERMATOLOGY: Normal, without lesions, non-icteric, and non-hirsute CHEST: Normal inspiratory effort ABDOMEN: gravid, non-tender NEURO: alert and oriented x3,exam grossly non-focal ASSESSMENT: 23 year old at 26w5d wks gestational age PLAN: 1) Patient oriented to practice. Patient given new OB orientation folder. Discussed nutrition, folic acid supplementation, dietary guidelines, exercise, smoking, alcohol, caffeine, and drug use. Discussed gestational weight gain guidelines. Discussed routine OB labs including STD/HIV. Discussed how to access Your guide to a health and the Dental Secretary. Discussed hemoglobin electrophoresis. Patient: Declines Reviewed midwifery and animal husbandry technician services that are available. 2) Screening: Hemoglobin A1C: 1 hour GTT ordered Baby Aspirin: The patient has been counseled about the potential benefits of low dose aspirin in and our recommendation that this be offered to all patients, regardless of whether they meet the high risk criteria specified above. She declines. Aneuploidy Screening: Discussed aneuploidy screening, nuchal translucency/first trimester early anatomy ultrasound and NIPT. The risks/benefits and limitations of NIPT/aneuploidy screening were reviewed including the potential for false negative and false positive results. The availability of genetic counseling was reviewed. Information on aneuploidy screening was provided. The patient declines screening Myriad Carrier Screening: Discussed myriad carrier screening. We discussed the availability of professional-society guided carrier screening and reviewed the conditions screened and limitations of screening. The availability of genetic counseling was reviewed. Information on carrier screening was provided. The patient Declines 3) Patient offered option of Virtual Visits. Patient unsure. May consider in future. ACTIVE PROBLEM LIST Encounter for Supervision of High Risk in Second Trimester, Antepartum - 03/20/2024 Comment: Care Checklist Vaccines: [] Flu vaccine [] declined [] RSV vaccine 32 0/7 - 36 6/ (May - Oct) [] declined [] COVID vaccine [] declined [] TDaP 27-36 [] declined First trimester: [x] Dating US [x] 1st tri labs [x] Pap smear 2023 [place] [] Carrier screening [] declined [] NIPT screening [] declined [] First trimester anatomy scan [] declined [] universal ASA ordered (start 12w-16w) [] declined [] M Power Consult [] not indicated [] declined Second trimester: [] AFP [] declined [x] Anatomy scan [] Mode of Delivery - [] Feeding - [] Pump ordered [] Diabetes screen [] CBC, RPR Third trimester (28-30 weeks): [] Consent [] Contraception - [] Hand Cigar Making Supervisor Third trimester (36-40 weeks): [] GBS [] Presentation - [] Scheduled [] yes - Hibiclens, pre-op instructions, CBC, T&S ordered [] no [] H&P Obesity Affecting in Second Trimester - 03/20/2024 Comment: Plan for 32 week growth q 4 weeks. Weekly NSTs at 36 weeks. History of Cholestasis During - 03/20/2024 Comment: Diagnosed around 38 weeks - experienced to tops of feet and front of shins. History of Depression - 03/20/2024 Comment: In college. No history of depression. Coping well at this time and does not have concerns. With Care Elsewhere in Second Trimester - 03/20/2024 Comment: Transferring from [place] - records scanned. Constipation During in Second Trimester - 03/20/2024 Comment: Improving - using Miralax as needed. Recommend daily Colace. Cherry Solorzano APRN.CNP Stress Incontinence, Female - 03/20/2024 Comment: Discussed pelvic floor therapy during and . Follow up in 2 weeks or sooner prn. PTL precautions reviewed. Cherry Solorzano APRN.CREATIVE WRITING PROFESSOR documented in this encounter [facility] 11-13-2023 History of Present illness Narrative Cherry Tina Morel is a 23 y.o. year old female patient. PCP = Krupa Tran MD Chief Complaint Patient presents with Amenorrhea Patient is here due to amenorrhea. LMP: 09/17/23. Patient c/o mild cramps. Patient denies any vaginal bleeding, nausea or breast tenderness. Patient is currently still 3-4 times a day. HPI Presents stating that she has not had a menstrual flow since September. Has some cramping but denies any vaginal bleeding. She is currently breast-feeding. She reports a history of cholestasis in the previous . OB History 1 Para 1 Term 1 0 AB 0 Living 1 SAB 0 IAB 0 Ectopic 0 Multiple 0 Live Births 1 Past Medical History: Diagnosis Date Encounter for full-term uncomplicated delivery 01/2022 NVD (normal vaginal delivery) Encounter for gynecological examination (general) (routine) without abnormal findings 08/03/2022 Pap test, as part of routine gynecological examination Other conditions influencing health status Menstruation Personal history of other diseases of the musculoskeletal system and connective tissue 03/30/2020 History of inflammation of sacroiliac joint Personal history of other mental and behavioral disorders History of depression POTS (postural orthostatic tachycardia syndrome) Past Surgical History: Procedure Laterality Date OTHER SURGICAL HISTORY 09/29/2019 Knee surgery OTHER SURGICAL HISTORY 06/09/2022 Breast biopsy excisional OTHER SURGICAL HISTORY 06/29/2020 [place] tooth extraction OTHER SURGICAL HISTORY 07/06/2020 Intra-articular corticosteroid injection Review of Systems: Constitutional: No fever or chills Respiratory: No shortness of breath, or cough Cardiovascular: No chest pain or syncope Breasts: No breast pain, no masses, no nipple discharge Gastrointestinal: No nausea, vomiting, or diarrhea, no abdominal pain Genitourinary: No dysuria or frequency Gynecology: Negative except as noted in history of present illness All other: All other systems reviewed and negative for complaint Medication Documentation Review Audit Reviewed by Folrida Dickinson MD (Physician) on 11/13/23 at 1152 Medication Order Taking? Sig Documenting Provider Last Dose Status rizatriptan (Maxalt) 10 mg tablet [id number] No Take 1 tablet (10 mg) by mouth 1 time if needed for migraine (may repeat x1). May repeat in 2 hours if unresolved. Do not exceed 30 mg in 24 hours. Imani Abad, DO Taking Active BP 122/68 Ht 1.702 m (5' 7 ) Wt 106 kg (233 lb) LMP 09/17/2023 BMI 36.49 kg/m PHYSICAL EXAMINATION: Well-developed, well nourished, in no acute distress, alert and oriented x three, is pleasant and cooperative. HEENT: Clear. Pupils equal, round and reactive to light and accommodation. Extraocular muscles are intact. Oral mucosa pink without exudate. NECK: No lymphadenopathy, no thyromegaly. LUNGS: Clear bilaterally. HEART: Regular rate and rhythm without murmurs. ABDOMEN: Normoactive bowel sounds, soft and nontender, no guarding or rebound tenderness, no CVA tenderness. EXTREMITIES: No clubbing, cyanosis or edema. NEUROLOGIC: Cranial nerves II-XII grossly intact. : Normal external female genitalia, normal vulva, normal vagina. Normal urethral meatus, urethra and bladder. Vaginal ultrasound shows a live intrauterine at 7 weeks 1 days gestation which is consistent with LMP. EDC is June 23, 2024. Orders Placed This Encounter Procedures US OB transvaginal Order Specific Question: Reason for exam: Answer: viability Order Specific Question: Radiologist to Determine Optimal Study Answer: Yes Order Specific Question: Release result to MyChart Answer: Immediate [1] Order Specific Question: Is this exam part of a Research Study? If Yes, link this order to the research study Answer: No POCT , urine manually resulted Order Specific Question: Release result to MyChart Answer: Immediate [1] Problem List Items Addressed This Visit None Visit Diagnoses Amenorrhea - Primary Relevant Orders US OB transvaginal test positive Relevant Orders POCT , urine manually resulted (Completed) Provider Impression: 1. Amenorrhea Follow-up in 4 weeks for new OB visit and cultures. documented in this encounter [facility] Work Phone: 07-31-2023 History of Present illness Narrative 23 y.o. female presents for evaluation of URI. Symptoms including cough, congestion, body aches, malaise, and headache have been present for several days and refractory to OTC meds. No fever, chills, nausea, vomiting, abdominal pain, CP, or SOB. No exacerbating factors. No known COVID 19/flu exposure. Vitals: 07/31/23 1654 BP: 113/78 Pulse: 93 Resp: 16 Temp: 36.3 C (97.3 F) SpO2: 97% No Known Allergies Medication Documentation Review Audit Reviewed by Elizabeth Baxter MA (Rehab Tech) on 07/31/23 at 1658 Medication Order Taking? Sig Documenting Provider Last Dose Status acetaminophen (Tylenol Extra Strength) 500 mg tablet [id number] Yes Take 325 mg by mouth. Historical Provider, Taking Active cyclobenzaprine (Flexeril) 10 mg tablet [id number] No Take 1 tablet (10 mg) by mouth 3 times a day as needed for muscle spasms. Patient not taking: Reported on 05/03/2023 Krupa Tran MD Not Taking Active ondansetron ODT (Zofran-ODT) 4 mg disintegrating tablet [id number] No Take 1 tablet (4 mg) by mouth. Historical Provider, Not Taking Active rizatriptan (Maxalt) 10 mg tablet [id number] Yes Take 1 tablet (10 mg) by mouth 1 time if needed for migraine (may repeat x1). May repeat in 2 hours if unresolved. Do not exceed 30 mg in 24 hours. Imani Abad DO Taking Active Past Medical History: Diagnosis Date Encounter for full-term uncomplicated delivery NVD (normal vaginal delivery) Encounter for gynecological examination (general) (routine) without abnormal findings Pap test, as part of routine gynecological examination Other conditions influencing health status Menstruation Personal history of other diseases of the musculoskeletal system and connective tissue 03/30/2020 History of inflammation of sacroiliac joint Personal history of other mental and behavioral disorders History of depression POTS (postural orthostatic tachycardia syndrome) Past Surgical History: Procedure Laterality Date OTHER SURGICAL HISTORY 09/29/2019 Knee surgery OTHER SURGICAL HISTORY 06/29/2020 Intrauterine device placement OTHER SURGICAL HISTORY 06/09/2022 Breast biopsy excisional OTHER SURGICAL HISTORY 06/29/2020 [place] tooth extraction OTHER SURGICAL HISTORY 07/06/2020 Intra-articular corticosteroid injection ROS See HPI Physical Exam Vitals and nursing note reviewed. Constitutional: Appearance: She is normal weight. She is ill-appearing (mildly). HENT: Head: Normocephalic and atraumatic. Right Ear: Tympanic membrane and ear canal normal. Left Ear: Tympanic membrane and ear canal normal. Nose: Congestion present. Mouth/Throat: Mouth: Mucous membranes are moist. Pharynx: Oropharynx is clear. Eyes: Extraocular Movements: Extraocular movements intact. Conjunctiva/sclera: Conjunctivae normal. Pupils: Pupils are equal, round, and reactive to light. Cardiovascular: Rate and Rhythm: Normal rate and regular rhythm. Pulmonary: Effort: Pulmonary effort is normal. Breath sounds: Normal breath sounds. Comments: Frequent dry cough during exam Skin: General: Skin is warm and dry. Capillary Refill: Capillary refill takes less than 2 seconds. Neurological: General: No focal deficit present. Mental Status: She is alert and oriented to person, place, and time. Psychiatric: Mood and Affect: Mood normal. Behavior: Behavior normal. Assessment/Plan/MDM Cherry was seen today for uri. Diagnoses and all orders for this visit: Acute bronchitis, unspecified organism (Primary) - azithromycin (Zithromax Z-Anatoliy) 250 mg tablet; Take 2 tablets (500 mg) on Day 1, followed by 1 tablet (250 mg) once daily on Days 2 through 5. - predniSONE (Deltasone) 20 mg tablet; Take 1 tablet (20 mg) by mouth once daily for 5 days. Encouraged pt to continue otc cold remedies PRN, push by mouth fluids and rest. Patient's clinical presentation is otherwise unremarkable at this time. Patient is discharged with instructions to follow-up with primary care or seek emergency medical attention for worsening symptoms or any new concerns. Scott Leal CNP [facility] [phone] documented in this encounter [facility] Work Phone: 02-02-2023 History of Present illness Narrative Subjective Patient ID: Cherry Morel is a 22 y.o. female who presents for Abdominal Pain. Abdominal Pain This is a new problem. The current episode started 1 to 4 weeks ago. The onset quality is gradual. The problem occurs intermittently. The problem has been waxing and waning. The pain is located in the RUQ. The pain is at a severity of 2/10. The quality of the pain is aching and burning. The abdominal pain does not radiate. Associated symptoms include constipation, diarrhea, frequency and headaches. Pertinent negatives include no anorexia, arthralgias, belching, dysuria, fever, flatus, hematochezia, hematuria, melena, myalgias, nausea, vomiting or weight loss. The pain is aggravated by certain positions. The pain is relieved by Palpation. About 3 weeks of right upper quadrant pain that has no obvious aggravating or relieving factors. No change in the pain when she eats coughs deep breath bending moving twisting bowel movement or urination. She did have elevated liver function test toward the end of her , believed to be cholestasis. No ultrasound etc. was done. Hepatitis C and B done at the beginning of were negative. The pain is not obviously worse when she eats a heavier meal. No troubles with pain at night. Also has been having troubles with alternating diarrhea and constipation. That has been going on for months, it is not worse in the last 3 weeks. Later smaller more frequent meals Gallbladder ultrasound Labs today No office visit set yet. Review of Systems Constitutional: Positive for fatigue. Negative for fever and weight loss. Gastrointestinal: Positive for abdominal pain, constipation and diarrhea. Negative for anorexia, blood in stool, flatus, hematochezia, melena, nausea and vomiting. Genitourinary: Positive for frequency. Negative for dysuria and hematuria. Musculoskeletal: Negative for arthralgias and myalgias. Skin: Negative for rash. Neurological: Positive for headaches. Negative for dizziness. Psychiatric/Behavioral: Negative for sleep disturbance. Objective BP 108/57 Pulse 93 Ht 1.702 m (5' 7 ) Wt 96.3 kg (212 lb 4.8 oz) LMP 01/14/2023 SpO2 96% BMI 33.25 kg/m Physical Exam Constitutional: Appearance: Normal appearance. HENT: Head: Normocephalic and atraumatic. Cardiovascular: Rate and Rhythm: Normal rate and regular rhythm. Heart sounds: Normal heart sounds. Pulmonary: Effort: Pulmonary effort is normal. Breath sounds: Normal breath sounds. Skin: General: Skin is warm and dry. Neurological: General: No focal deficit present. Mental Status: She is alert and oriented to person, place, and time. Gait: Gait normal. Psychiatric: Mood and Affect: Mood normal. Behavior: Behavior normal. Thought Content: Thought content normal. Judgment: Judgment normal. Mild tenderness to palpation over the epigastric area, significant tenderness to palpation in the right upper quadrant. No rebound. Assessment/Plan Problem List Items Addressed This Visit Nervous Right upper quadrant abdominal pain - Primary Relevant Orders CBC Comprehensive Metabolic Panel Thyroid Stimulating Hormone Lipase US gallbladder Other Visit Diagnoses Fatigue, unspecified type Relevant Orders CBC Comprehensive Metabolic Panel Thyroid Stimulating Hormone documented in this encounter [facility] Work Phone: 08-03-2022 Note 06 Date of Procedure: 08/03/2022 Pathologist: [facility], Cytology Date Reported: 08/08/2022 Date Received: 08/03/2022 Submitting Physician: DWIGHT MIX CNM CNP FINAL CYTOLOGICAL INTERPRETATION A. THINPREP PAP CERVICAL: Specimen adequacy: SATISFACTORY FOR EVALUATION. Quality Indicator: Endocervical/transformation zone component is present. General Categorization: NEGATIVE FOR INTRAEPITHELIAL LESION OR MALIGNANCY. Ancillary Testing: Specimen does not meet the requisition-stated criteria for HPV testing. See Pap test interpretation above. This specimen has been analyzed by the [employer] Imaging System ([employer] an automated imaging and review system, which assists the laboratory in evaluating cells on ThinPrep Pap tests. Following automated imaging, selected michaels from every slide were reviewed by a under baster and/or pathologist. Electronically Signed Out By [facility], Cytology//IK By the signature on this report, the individual or group listed as making the Final Interpretation/Diagnosis certifies that they have reviewed this case. Diagnostic interpretation performed at [address] [place] [id number] Educational Note: Cervical cytology is a screening procedure primarily for squamous cancers and precursors and has associated false-negative and false-positive results as evidenced by published data. Your patient?s test should be interpreted in this context, together with patient?s history and clinical findings. Regular sampling and follow-up of unexplained clinical signs and symptoms are recommended to minimize false negative results. Clinical History Date of Last Menstrual Period: 08/03/2022 Other Clinical Conditions: Annual HPV Reflex for ASC-US only - Include HPV Genotype Clinical Diagnosis History: Screening for cervical cancer - (Z12.4) Source of Specimen A: THINPREP PAP CERVICAL [facility] Department of Pathology [address] [place] [address] Comment on above: Performed By: #### C #### [facility] [address] [place], [place] [id number] Evaluation note Diagnosis Right upper quadrant abdominal pain- Primary Fatigue, unspecified type Right upper quadrant abdominal pain Fatigue, unspecified type documented in this encounter [facility] Work Phone: Evaluation note* Diagnosis Migraine without aura and without status migrainosus, not intractable documented in this encounter [facility] Work Phone: Evaluation note* Diagnosis Acute bronchitis, unspecified organism- Primary documented in this encounter [facility] Work Phone: Evaluation note* Diagnosis Amenorrhea- Primary Absence of menstruation test positive examination or test, positive result documented in this encounter [facility] Work Phone: Evaluation note* Diagnosis 16 weeks gestation of ([facility] documented in this encounter [facility] Work Phone: Evaluation note* Diagnosis Stress incontinence in - Primary Infections of genitourinary tract in , unspecified as to episode of care documented in this encounter [facility] note* Diagnosis Encounter for supervision of high risk in second trimester, antepartum- Primary 26 weeks gestation of state, incidental Obesity affecting in second trimester, unspecified obesity type with care elsewhere in second trimester History of cholestasis during History of depression Personal history of other mental disorder Constipation during in second trimester Stress incontinence, female Female stress incontinence Uncertain dates, antepartum, second trimester [facility] Diagnosis 27 weeks gestation of - Primary state, incidental Encounter for supervision of high risk in second trimester, antepartum Obesity affecting in second trimester, unspecified obesity type Decreased movements in second trimester, single or unspecified fetus documented in this encounter [facility] note* Diagnosis History of depression- Primary Personal history of other mental disorder 28 weeks gestation of state, incidental Supervision of high risk in third trimester Unspecified high-risk Obesity affecting in third trimester, unspecified obesity type Need for vaccination Need for prophylactic vaccination and inoculation against unspecified single disease [facility] Diagnosis Encounter for supervision of high risk in third trimester, antepartum- Primary 30 weeks gestation of state, incidental Anemia complicating , third trimester Obesity affecting in third trimester, unspecified obesity type Dizziness Dizziness and giddiness [facility] Diagnosis Encounter for supervision of high risk in third trimester, antepartum- Primary Obesity affecting in third trimester, unspecified obesity type Anemia complicating , third trimester [facility] Diagnosis Obesity affecting in third trimester, unspecified obesity type- Primary Anemia complicating , third trimester Encounter for supervision of high risk in third trimester, antepartum 32 weeks gestation of state, incidental * Assessment & Plan Note - Jany Schwarz MD - 04/30/2024 3:01 PM EDT Associated Problem(s): Obesity affecting in third trimester Growth us pending today, NSTs starting 36 weeks , Never started ASA (transfer of care) documented in this encounter [facility] note* Diagnosis Encounter for anatomic survey- Primary 32 weeks gestation of state, incidental Obesity affecting in second trimester, unspecified obesity type with care elsewhere in third trimester Obesity affecting in third trimester, unspecified obesity type- Primary Anemia complicating , third trimester Encounter for supervision of high risk in third trimester, antepartum 32 weeks gestation of state, incidental documented in this encounter [facility] note* Diagnosis Obesity affecting in third trimester, unspecified obesity type- Primary Anemia complicating , third trimester Encounter for supervision of high risk in third trimester, antepartum 32 weeks gestation of state, incidental Encounter for supervision of high risk in third trimester, antepartum- Primary 34 weeks gestation of state, incidental Obesity affecting in third trimester, unspecified obesity type Anemia complicating , third trimester documented in this encounter [facility] note* Diagnosis Obesity affecting in third trimester, unspecified obesity type- Primary Anemia complicating , third trimester Encounter for supervision of high risk in third trimester, antepartum 32 weeks gestation of state, incidental Encounter for supervision of high risk in third trimester, antepartum- Primary 36 weeks gestation of state, incidental Anemia complicating , third trimester Obesity affecting in third trimester, unspecified obesity type Supervision of high risk in third trimester Unspecified high-risk documented in this encounter [facility] note* Diagnosis Dysfunction of both eustachian tubes- Primary documented in this encounter [facility] Work Phone: Evaluation note* Diagnosis Obesity affecting in third trimester, unspecified obesity type- Primary Anemia complicating , third trimester Encounter for supervision of high risk in third trimester, antepartum 32 weeks gestation of state, incidental Obesity affecting in third trimester, unspecified obesity type- Primary Encounter for supervision of high risk in third trimester, antepartum 37 weeks gestation of state, incidental documented in this encounter [facility] note* Diagnosis Obesity affecting in third trimester, unspecified obesity type- Primary Anemia complicating , third trimester Encounter for supervision of high risk in third trimester, antepartum 32 weeks gestation of state, incidental Encounter for supervision of high risk in third trimester, antepartum- Primary Obesity affecting in third trimester, unspecified obesity type Anemia complicating , third trimester 38 weeks gestation of state, incidental Need for influenza vaccination Need for prophylactic vaccination and inoculation against influenza COVID-19 vaccine administered documented in this encounter [facility] note* Diagnosis Obesity affecting in third trimester, unspecified obesity type- Primary Anemia complicating , third trimester Encounter for supervision of high risk in third trimester, antepartum 32 weeks gestation of state, incidental 39 weeks gestation of - Primary state, incidental Encounter for supervision of high risk in third trimester, antepartum Obesity affecting in third trimester, unspecified obesity type documented in this encounter [facility] note* Diagnosis Obesity affecting in third trimester, unspecified obesity type- Primary Anemia complicating , third trimester Encounter for supervision of high risk in third trimester, antepartum 32 weeks gestation of state, incidental Encounter for ultrasound to check growth- Primary Encounter for routine screening for malformation using ultrasonics Obesity affecting in third trimester, unspecified obesity type 39 weeks gestation of state, incidental Suspected anomaly, antepartum, single or unspecified fetus [facility] [id number] G1 presents with secondary menorrhea. Patient notes nausea no vomiting. Patient has breast tenderness mild cramping. Denies any bleeding. Patient is no other acute concernsWomenKiwigrid Work Phone: History of Present illness NarrativeShe presents for checkup. She is currently breast-feeding. She will be using condoms forcontraception. She voices no complaints and is doing well.[employer] Work Phone: History of Present illness Narrative* Can you call Zoll treatment before 40 mg x 2 did not help, the rash does seem to be a little bit worse. * selenium shampoo for now. * itraconazole 400 mg daily x 3-7 days be the treatment to try if she does not go to dermatology. At this point since the rash is spreading I recommend she goes to see dermatology. But would not recommend trying the pills until she is done with breast-feeding, so she will call in about 6 months for referral to dermatology. * breast lump started before delivery, but not gotten worse since delivery and breast feeding. not warm or painful. No fever chills. * US first. -Georgina Goodman [facility] Work Phone: History of Present illness NarrativePatient returns after ultrasound. I shared with her the results. She states her breasts have been more tender but the infant has been ill and not nursing as much. She denies any change in the size.-[facility] Work Phone: History of Present illness Narrative* Pt. presents for annual exam * Hx of normal paps, last pap 2019 * has 1st grader, kindergartener, and 6 month old. Declines contraceptive conversation * Denies any c/o or concerns * PCP following R breast fibroadenoma, has next u/s in 6 mos. * and having monthly bleeding [address] Work Phone: History of Present illness Narrative* Still with low back pain, but now she is having more troubles in the right hip. Chiropractor was worried about a hernia. * On exam no lymphadenopathy in the right groin area no hernia. * Do worry that maybe the lower back pain in the upper part of the low back is causing troubles not just her L4-L5 area. * Prednisone taper * motrin prn * con't chiro [facility] Work Phone: reason for referral (narrative)* Diagnostic Procedure Only (Routine) - Authorized Specialty Diagnoses / Procedures Referred By Contac t [facility] Diagnoses Encounter for supervision of high risk in third trimester, antepartum Procedures OBSTETRIC ULTRASOUND WHI US PREG UTERUS AFTER 1ST TRIMEST GESTATION Madonna Bartholomew MD [address] [place] [address] [address] Referral ID Status Reason Start Date Expiration Date Visits Requested Visits Authorized [id number] Authorized Auto-Generat ed Referral 04/29/2024 04/29/2025 1 1 T [facility] for referral (narrative)* Diagnostic Procedure Only (Routine) - New Request Specialty Diagnoses / Procedures Referred By Contac t Referred To Contact [facility] Diagnoses Encounter for supervision of high risk in third trimester, antepartum 36 weeks gestation of Procedures OBSTETRIC ULTRASOUND WHI US PREG UTERUS AFTER 1ST TRIMEST GESTATION Cherry Solorzano APRN.CNP [address] [place] [address] [address] Referral ID Status Reason Start Date Expiration Date Visits Requested Visits Authorized [id number] New Request Auto-Generat ed Referral 05/26/2024 05/26/2025 1 1 [facility] for referral (narrative)* Diagnostic Procedure Only (Routine) - Authorized Specialty Diagnoses / Procedures Referred By Contac t Referred To Contact [facility] Diagnoses Encounter for supervision of high risk in third trimester, antepartum Obesity affecting in third trimester, unspecified obesity type Anemia complicating , third trimester 38 weeks gestation of Procedures OBSTETRIC ULTRASOUND WHI US PREG UTERUS AFTER 1ST TRIMEST GESTATION Alexis Velazquez MD [address] [place] [address] [address] Referral ID Status Reason Start Date Expiration Date Visits Requested Visits Authorized [id number] Authorized Auto-Generat ed Referral 06/10/2024 06/10/2025 1 1 [facility] Summary Purpose Family History No Family History Records Found Grandparent Name Dates Details Family history of lung cance r(V16.1, Z80.1) Status:Active Mother Name Dates Details Family history of migraine h eadaches(V17.2, Z82.0) Status:Active Family history of anemia(V18 .2, Z83.2) Status:Active Father Name Dates Details No pertinent family history( V49.89, Z78.9) Status:Active Sister Name Dates Details Family history of migraine h eadaches(V17.2, Z82.0) Status:Active Grandparent Name Dates Details Family history of lung cance r(V16.1, Z80.1) Status:Active Mother Name Dates Details Family history of migraine h eadaches(V17.2, Z82.0) Status:Active Family history of anemia(V18 .2, Z83.2) Status:Active Father Name Dates Details No pertinent family history( V49.89, Z78.9) Status:Active Sister Name Dates Details Family history of migraine h eadaches(V17.2, Z82.0) Status:Active Grandparent Name Dates Details Family history of lung cance r(V16.1, Z80.1) Status:Active Mother Name Dates Details Family history of migraine h eadaches(V17.2, Z82.0) Status:Active Family history of anemia(V18 .2, Z83.2) Status:Active Father Name Dates Details No pertinent family history( V49.89, Z78.9) Status:Active Sister Name Dates Details Family history of migraine h eadaches(V17.2, Z82.0) Status:Active Grandparent Name Dates Details Family history of lung cance r(V16.1, Z80.1) Status:Active Mother Name Dates Details Family history of migraine h eadaches(V17.2, Z82.0) Status:Active Family history of anemia(V18 .2, Z83.2) Status:Active Father Name Dates Details No pertinent family history( V49.89, Z78.9) Status:Active Sister Name Dates Details Family history of migraine h eadaches(V17.2, Z82.0) Status:Active Grandparent Name Dates Details Family history of lung cance r(V16.1, Z80.1) Status:Active Mother Name Dates Details Family history of migraine h eadaches(V17.2, Z82.0) Status:Active Family history of anemia(V18 .2, Z83.2) Status:Active Father Name Dates Details No pertinent family history( V49.89, Z78.9) Status:Active Sister Name Dates Details Family history of migraine h eadaches(V17.2, Z82.0) Status:Active Grandparent Name Dates Details Family history of lung cance r(V16.1, Z80.1) Status:Active Mother Name Dates Details Family history of migraine h eadaches(V17.2, Z82.0) Status:Active Family history of anemia(V18 .2, Z83.2) Status:Active Father Name Dates Details No pertinent family history( V49.89, Z78.9) Status:Active Sister Name Dates Details Family history of migraine h eadaches(V17.2, Z82.0) Status:Active Grandparent Name Dates Details Family history of lung cance r(V16.1, Z80.1) Status:Active Mother Name Dates Details Family history of migraine h eadaches(V17.2, Z82.0) Status:Active Family history of anemia(V18 .2, Z83.2) Status:Active Father Name Dates Details No pertinent family history( V49.89, Z78.9) Status:Active Sister Name Dates Details Family history of migraine h eadaches(V17.2, Z82.0) Status:Active Grandparent Name Dates Details Family history of lung cance r(V16.1, Z80.1) Status:Active Mother Name Dates Details Family history of migraine h eadaches(V17.2, Z82.0) Status:Active Family history of anemia(V18 .2, Z83.2) Status:Active Father Name Dates Details No pertinent family history( V49.89, Z78.9) Status:Active Sister Name Dates Details Family history of migraine h eadaches(V17.2, Z82.0) Status:Active Unknown Family Member Name Dates Details Family history of migraine h eadaches: Mother, Sister(V17.2, Z82.0) Status:Active Family history of anemia: Mo ther(V18.2, Z83.2) Status:Active No pertinent family history: Father(V49.89, Z78.9) Status:Active Family history of lung cance r: Grandparent(V16.1, Z80.1) Status:Active POTS (postural orthostatic t achycardia syndrome): Sister Status:Active Unknown Family Member Name Dates Details Family history of migraine h eadaches: Mother, Sister(V17.2, Z82.0) Status:Active Family history of anemia: Mo ther(V18.2, Z83.2) Status:Active No pertinent family history: Father(V49.89, Z78.9) Status:Active Family history of lung cance r: Grandparent(V16.1, Z80.1) Status:Active POTS (postural orthostatic t achycardia syndrome): Sister Status:Active Unknown Family Member Name Dates Details Family history of migraine h eadaches: Mother, Sister(V17.2, Z82.0) Status:Active Family history of anemia: Mo ther(V18.2, Z83.2) Status:Active No pertinent family history: Father(V49.89, Z78.9) Status:Active Family history of lung cance r: Grandparent(V16.1, Z80.1) Status:Active POTS (postural orthostatic t achycardia syndrome): Sister Status:Active Unknown Family Member Name Dates Details Family history of migraine h eadaches: Mother, Sister(V17.2, Z82.0) Status:Active Family history of anemia: Mo ther(V18.2, Z83.2) Status:Active No pertinent family history: Father(V49.89, Z78.9) Status:Active Family history of lung cance r: Grandparent(V16.1, Z80.1) Status:Active POTS (postural orthostatic t achycardia syndrome): Sister Status:Active Unknown Family Member Name Dates Details Family history of migraine h eadaches: Mother, Sister(V17.2, Z82.0) Status:Active Family history of anemia: Mo ther(V18.2, Z83.2) Status:Active No pertinent family history: Father(V49.89, Z78.9) Status:Active Family history of lung cance r: Grandparent(V16.1, Z80.1) Status:Active POTS (postural orthostatic t achycardia syndrome): Sister Status:Active Unknown Family Member Name Dates Details Family history of migraine h eadaches: Mother, Sister(V17.2, Z82.0) Status:Active Family history of anemia: Mo ther(V18.2, Z83.2) Status:Active No pertinent family history: Father(V49.89, Z78.9) Status:Active Family history of lung cance r: Grandparent(V16.1, Z80.1) Status:Active POTS (postural orthostatic t achycardia syndrome): Sister Status:Active Unknown Family Member Name Dates Details POTS (postural orthostatic t achycardia syndrome): Sister Status:Active Family history of lung cance r: Grandparent(V16.1, Z80.1) Status:Active No pertinent family history: Father(V49.89, Z78.9) Status:Active Family history of anemia: Mo ther(V18.2, Z83.2) Status:Active Family history of migraine h eadaches: Mother, Sister(V17.2, Z82.0) Status:Active Unknown Family Member Name Dates Details Family history of lung cance r: Grandparent(V16.1, Z80.1) Status:Active POTS (postural orthostatic t achycardia syndrome): Sister Status:Active No pertinent family history: Father(V49.89, Z78.9) Status:Active Family history of anemia: Mo ther(V18.2, Z83.2) Status:Active Family history of migraine h eadaches: Mother, Sister(V17.2, Z82.0) Status:Active Unknown Family Member Name Dates Details Family history of migraine h eadaches: Mother, Sister(V17.2, Z82.0) Status:Active Family history of anemia: Mo ther(V18.2, Z83.2) Status:Active No pertinent family history: Father(V49.89, Z78.9) Status:Active Family history of lung cance r: Grandparent(V16.1, Z80.1) Status:Active POTS (postural orthostatic t achycardia syndrome): Sister Status:Active Unknown Family Member Name Dates Details Family history of migraine h eadaches: Mother, Sister(V17.2, Z82.0) Status:Active Family history of anemia: Mo ther(V18.2, Z83.2) Status:Active No pertinent family history: Father(V49.89, Z78.9) Status:Active Family history of lung cance r: Grandparent(V16.1, Z80.1) Status:Active POTS (postural orthostatic t achycardia syndrome): Sister Status:Active Unknown Family Member Name Dates Details Family history of migraine h eadaches: Mother, Sister(V17.2, Z82.0) Status:Active Family history of anemia: Mo ther(V18.2, Z83.2) Status:Active No pertinent family history: Father(V49.89, Z78.9) Status:Active Family history of lung cance r: Grandparent(V16.1, Z80.1) Status:Active POTS (postural orthostatic t achycardia syndrome): Sister Status:Active Unknown Family Member Name Dates Details Family history of migraine h eadaches: Mother, Sister(V17.2, Z82.0) Status:Active Family history of anemia: Mo ther(V18.2, Z83.2) Status:Active No pertinent family history: Father(V49.89, Z78.9) Status:Active Family history of lung cance r: Grandparent(V16.1, Z80.1) Status:Active POTS (postural orthostatic t achycardia syndrome): Sister Status:Active Unknown Family Member Name Dates Details Family history of migraine h eadaches: Mother, Sister(V17.2, Z82.0) Status:Active Family history of anemia: Mo ther(V18.2, Z83.2) Status:Active No pertinent family history: Father(V49.89, Z78.9) Status:Active Family history of lung cance r: Grandparent(V16.1, Z80.1) Status:Active POTS (postural orthostatic t achycardia syndrome): Sister Status:Active Unknown Family Member Name Dates Details Family history of migraine h eadaches: Mother, Sister(V17.2, Z82.0) Status:Active Family history of anemia: Mo ther(V18.2, Z83.2) Status:Active No pertinent family history: Father(V49.89, Z78.9) Status:Active Family history of lung cance r: Grandparent(V16.1, Z80.1) Status:Active POTS (postural orthostatic t achycardia syndrome): Sister Status:Active Unknown Family Member Name Dates Details Family history of migraine h eadaches: Mother, Sister(V17.2, Z82.0) Status:Active Family history of anemia: Mo ther(V18.2, Z83.2) Status:Active No pertinent family history: Father(V49.89, Z78.9) Status:Active Family history of lung cance r: Grandparent(V16.1, Z80.1) Status:Active POTS (postural orthostatic t achycardia syndrome): Sister Status:Active Unknown Family Member Name Dates Details Family history of migraine h eadaches: Mother, Sister(V17.2, Z82.0) Status:Active Family history of anemia: Mo ther(V18.2, Z83.2) Status:Active No pertinent family history: Father(V49.89, Z78.9) Status:Active Family history of lung cance r: Grandparent(V16.1, Z80.1) Status:Active POTS (postural orthostatic t achycardia syndrome): Sister Status:Active Unknown Family Member Name Dates Details Family history of migraine h eadaches: Mother, Sister(V17.2, Z82.0) Status:Active Family history of anemia: Mo ther(V18.2, Z83.2) Status:Active No pertinent family history: Father(V49.89, Z78.9) Status:Active Family history of lung cance r: Grandparent(V16.1, Z80.1) Status:Active POTS (postural orthostatic t achycardia syndrome): Sister Status:Active Unknown Family Member Name Dates Details Family history of migraine h eadaches: Mother, Sister(V17.2, Z82.0) Status:Active Family history of anemia: Mo ther(V18.2, Z83.2) Status:Active No pertinent family history: Father(V49.89, Z78.9) Status:Active Family history of lung cance r: Grandparent(V16.1, Z80.1) Status:Active POTS (postural orthostatic t achycardia syndrome): Sister Status:Active Unknown Family Member Name Dates Details Family history of migraine h eadaches: Mother, Sister(V17.2, Z82.0) Status:Active Family history of anemia: Mo ther(V18.2, Z83.2) Status:Active No pertinent family history: Father(V49.89, Z78.9) Status:Active Family history of lung cance r: Grandparent(V16.1, Z80.1) Status:Active POTS (postural orthostatic t achycardia syndrome): Sister Status:Active Unknown Family Member Name Dates Details Family history of migraine h eadaches: Mother, Sister(V17.2, Z82.0) Status:Active Family history of anemia: Mo ther(V18.2, Z83.2) Status:Active No pertinent family history: Father(V49.89, Z78.9) Status:Active Family history of lung cance r: Grandparent(V16.1, Z80.1) Status:Active POTS (postural orthostatic t achycardia syndrome): Sister Status:Active Unknown Family Member Name Dates Details Family history of migraine h eadaches: Mother, Sister(V17.2, Z82.0) Status:Active Family history of anemia: Mo ther(V18.2, Z83.2) Status:Active No pertinent family history: Father(V49.89, Z78.9) Status:Active Family history of lung cance r: Grandparent(V16.1, Z80.1) Status:Active POTS (postural orthostatic t achycardia syndrome): Sister Status:Active Unknown Family Member Name Dates Details Family history of migraine h eadaches: Mother, Sister(V17.2, Z82.0) Status:Active Family history of anemia: Mo ther(V18.2, Z83.2) Status:Active No pertinent family history: Father(V49.89, Z78.9) Status:Active Family history of lung cance r: Grandparent(V16.1, Z80.1) Status:Active POTS (postural orthostatic t achycardia syndrome): Sister Status:Active Unknown Family Member Name Dates Details Family history of migraine h eadaches: Mother, Sister(V17.2, Z82.0) Status:Active Family history of anemia: Mo ther(V18.2, Z83.2) Status:Active No pertinent family history: Father(V49.89, Z78.9) Status:Active Family history of lung cance r: Grandparent(V16.1, Z80.1) Status:Active POTS (postural orthostatic t achycardia syndrome): Sister Status:Active Unknown Family Member Name Dates Details Family history of migraine h eadaches: Mother, Sister(V17.2, Z82.0) Status:Active Family history of anemia: Mo ther(V18.2, Z83.2) Status:Active No pertinent family history: Father(V49.89, Z78.9) Status:Active Family history of lung cance r: Grandparent(V16.1, Z80.1) Status:Active POTS (postural orthostatic t achycardia syndrome): Sister Status:Active Unknown Family Member Name Dates Details Family history of migraine h eadaches: Mother, Sister(V17.2, Z82.0) Status:Active Family history of anemia: Mo ther(V18.2, Z83.2) Status:Active Family history of lung cance r: Grandparent(V16.1, Z80.1) Status:Active POTS (postural orthostatic t achycardia syndrome): Sister Status:Active Family history of hypertensi on: Mother, Father, Grandmother, Grandfather(V17.49, Z82.49) Status:Active Family history of cerebrovas cular accident (CVA): Paternal Grandfather(V17.1, Z82.3) Status:Active Family history of thyroid di sease: Sister(V18.19, Z83.49) Status:Active Unknown Family Member Name Dates Details Family history of migraine h eadaches: Mother, Sister(V17.2, Z82.0) Status:Active Family history of anemia: Mo ther(V18.2, Z83.2) Status:Active Family history of lung cance r: Grandparent(V16.1, Z80.1) Status:Active POTS (postural orthostatic t achycardia syndrome): Sister Status:Active Family history of hypertensi on: Mother, Father, Grandmother, Grandfather(V17.49, Z82.49) Status:Active Family history of cerebrovas cular accident (CVA): Paternal Grandfather(V17.1, Z82.3) Status:Active Family history of thyroid di sease: Sister(V18.19, Z83.49) Status:Active Unknown Family Member Name Dates Details Family history of migraine h eadaches: Mother, Sister(V17.2, Z82.0) Status:Active Family history of anemia: Mo ther(V18.2, Z83.2) Status:Active Family history of lung cance r: Grandparent(V16.1, Z80.1) Status:Active POTS (postural orthostatic t achycardia syndrome): Sister Status:Active Family history of hypertensi on: Mother, Father, Grandmother, Grandfather(V17.49, Z82.49) Status:Active Family history of cerebrovas cular accident (CVA): Paternal Grandfather(V17.1, Z82.3) Status:Active Family history of thyroid di sease: Sister(V18.19, Z83.49) Status:Active Advance Directives No Advanced Directives Records FoundNo Advanced Directives Records FoundNo Advanced Directives Records FoundNo Advanced Directives Records FoundNo Advanced Directives Records FoundNo Advanced Directives Records FoundNo Advanced Directives Records FoundNo Advanced Directives Records FoundNo Advanced Directives Records FoundNo Advanced Directives Records FoundNo Advanced Directives Records FoundNo Advanced Directives Records Found Chief Complaint PT IS HERE TODAY FOR AMENORRHEA. HAS NO CONCERNS. HAS N/V. DENIES ANY BLEEDING. HAS MILD CRAMPING. HAS BREAST TENDERNESS. LMP: 1Patient is here for her 4 week post visit. Patient had a vaginal delivery of a female infanton 01/14/22 at 38 weeks 3 days, infant weighted 7 # 4 oz. Patient is currently . Patient would not like to discuss control options. Patient has not resumed sexual activity. Patientdeclines post depression. Patient has no other concerns at this time.SKIN DISCOLORATION, LUMP IN RT BREASTFollow up after testing. US 06/14/2022 cat 2. Pt denies change in size and breast pain. C/o mild tenderness in the right breast, but states it's when she is .PT IS HERE TODAY FOR HER ANNUAL EXAM. LAST PAP WAS 06/02/2022, NIL. HAS NO CONCERNS. DOES A SELF BREAST CHECK. LMP: 08/03/2022LOWER BACK PAIN Reason for Referral Specialty Diagnoses / Procedures Referred By Contac t Referred To Contact Radiology Diagnoses Right upper quadrant abdominal pain Procedures US gallbladder Krupa Tran MD [address] [place] [address] Referral ID Status Reason Start Date Expiration Date Visits Requested Visits Authorized [id number] Authorized Perform Procedure 02/02/2023 08/01/2023 1 1 Specialty Diagnoses / Procedures Referred By Contac t Referred To Contact Diagnoses Migraine without aura and without status migrainosus, not intractable Procedures Autonomic Testing Imani Abad DO [address] [facility] [address] [place] [address] Referral ID Status Reason Start Date Expiration Date V isits Requested Visits Authorized [id number] Pending Review 07/12/2023 07/11/2024 1 1 Specialty Diagnoses / Procedures Referred By Contac t Referred To Contact Radiology Diagnoses Amenorrhea Procedures US OB transvaginal Florida Dickinson MD [address] [facility], [address] [place] [address] Referral ID Status Reason Start Date Expiration Date Visits Requested Visits Authorized [id number] Authorized Perform Procedure 11/13/2023 11/12/2024 1 1 Specialty Diagnoses / Procedures Referred By Contac t Referred To Contact Radiology Diagnoses 16 weeks gestation of ([facility]) Procedures US OB 14+ weeks anatomy scan Florida Dickinson MD [address] [facility], [address] [place] [address] Referral ID Status Reason Start Date Expiration Date Visits Requested Visits Authorized [id number] Authorized Perform Procedure 01/09/2024 01/08/2025 1 1 Specialty Diagnoses / Procedures Referred By Contac t Referred To Contact [facility] Diagnoses Stress incontinence in Procedures CONSULT TO PHYSICAL THERAPY PHYSICAL THERAPY EVALUATION HIGH COMPLEX 45 MINS Cherry Solorzano, HOME HEALTH TRAVEL PT.CREATIVE WRITING PROFESSOR [address] [place] [address] [facility] [place] [address] Referral ID Status Reason Start Date Expiration Date Visits Requested Visits Authorized [id number] Pending Review Auto-Generat ed Referral 03/20/2024 03/20/2025 1 1 Additional Source Comments INFORMATION SOURCE (unrecogn ized section and content) DATE CREATED AUTHOR 02/20/2018 [facility] DATE CREATED AUTHOR AUTHOR'S ORGANIZ ATION 02/26/2018 [facility] DATE CREATED AUTHOR AUTHOR'S ORGANIZ ATION 02/27/2018 [facility] DATE CREATED AUTHOR AUTHOR'S ORGANIZ ATION 06/05/2019 [facility] DATE CREATED AUTHOR AUTHOR'S ORGANIZ ATION 06/05/2019 [facility] DATE CREATED AUTHOR AUTHOR'S ORGANIZ ATION 11/04/2022 [facility] DATE CREATED AUTHOR AUTHOR'S ORGANIZ ATION 11/04/2022 [facility] DATE CREATED AUTHOR AUTHOR'S ORGANIZ ATION 03/01/2023 [facility] DATE CREATED AUTHOR AUTHOR'S ORGANIZ ATION 12/16/2023 [facility] DATE CREATED AUTHOR AUTHOR'S ORGANIZ ATION 04/26/2024 [facility] DATE CREATED AUTHOR AUTHOR'S ORGANIZ ATION 06/07/2024 [facility] DATE CREATED AUTHOR AUTHOR'S ORGANIZ ATION 06/23/2024 [facility] Reason for Visit (unrecogniz ed section and content) Reason Comments Abdominal Pain Specialty Diagnoses / Procedures Referred By Contac t Referred To Contact Diagnoses Migraine without aura and without status migrainosus, not intractable Procedures Autonomic Testing Imani Abad, [address] [place] [address] Referral ID Status Reason Start Date Expiration Date V isits Requested Visits Authorized [id number] Pending Review 07/12/2023 07/11/2024 1 1 Reason Comments URI COUGH, VOMITING, CON GESTION, FEVER, HEADACHES, SINUS PRESSURE X 1 WEEK Reason Comments Amenorrhea Patient is here due to amenorrhea. LMP: 09/17/23. Patient c/o mild cramps. Patient denies any vaginal bleeding, nausea or breast tenderness. Patient is currently still 3-4 times a day. Specialty Diagnoses / Procedures Referred By Contac t Referred To Contact Radiology Diagnoses 16 weeks gestation of ([facility]) Procedures US OB 14+ weeks anatomy scan Florida Dickinson MD [address] [facility], [address] [address] Referral ID Status Reason Start Date Expiration Date Visits Requested Visits Authorized [id number] Authorized Perform Procedure 01/09/2024 01/08/2025 1 1 Reason Comments Orders Reason Comments Initial OB Visit Reason Onset Date Comments Care 03/25/2024 Reason Onset Date Comments Care 04/02/2024 Reason Onset Date Comments Care 04/17/2024 Reason Onset Date Comments Care 04/30/2024 Reason Comments US Specialty Diagnoses / Procedures Referred By Contac t Referred To Contact [facility] Diagnoses Encounter for supervision of high risk in third trimester, antepartum Procedures OBSTETRIC ULTRASOUND WHI US PREG UTERUS AFTER 1ST TRIMEST GESTATION Madonna Bartholomew MD [address] [place] [address] [facility] [address] [place] [address] Referral ID Status Reason Start Date Expiration Date V isits Requested Visits Authorized [id number] Closed Auto-Generate d Referral 04/29/2024 04/29/2025 1 1 Reason Onset Date Comments Care 05/12/2024 Reason Onset Date Comments Care 05/26/2024 Reason Comments Ears feel plugged Reason Onset Date Comments Care 06/02/2024 Reason Onset Date Comments Care 06/10/2024 Immunizations 06/10/2024 Flu vaccination Reason Onset Date Comments Care 06/17/2024 Specialty Diagnoses / Procedures Referred By Contac t Referred To Contact [facility] Diagnoses Encounter for supervision of high risk in third trimester, antepartum Obesity affecting in third trimester, unspecified obesity type Anemia complicating , third trimester 38 weeks gestation of Procedures OBSTETRIC ULTRASOUND WHI US PREG UTERUS AFTER 1ST TRIMEST GESTATION Alexis Velazquez MD [address] [place] [address] [facility] [address] [place] [address] Referral ID Status Reason Start Date Expiration Date V isits Requested Visits Authorized [id number] Closed Auto-Generate d Referral 06/10/2024 06/10/2025 1 1 Care Teams (unrecognized sec tion and content) Operations And Maintenance Manager Relationship Specialty Start Date End Date Krupa Tran MD [address] [place] [address] PCP - General 07/04/19 Operations And Maintenance Manager Relationship Specialty Start Date End Date Krupa Tran MD [address] [place] [address] PCP - General 07/04/19 Krupa Tran MD [address] [place] [address] PCP - MMO ACO PCP 01/01/23 Imani Abad DO [address] [facility] [address] [place], [place] [id number] Consulting Physician Neurology 07/12/23 Operations And Maintenance Manager Relationship Specialty Start Date End Date Krupa Tran MD [address] [place] [address] PCP - General 07/04/19 Fina Koch APRN-CREATIVE WRITING PROFESSOR [address] [place] [address] PCP - MMO ACO PCP 06/03/23 Imani Abad DO [address] [facility] [address] [place] [address] Consulting Physician Neurology 07/12/23 Operations And Maintenance Manager Relationship Specialty Start Date End Date Krupa Tran MD [address] [place] [address] PCP - General 07/04/19 Fina Koch, HOME HEALTH TRAVEL PT-CREATIVE WRITING PROFESSOR [address] [place] [address] PCP - MMO ACO PCP 06/03/23 Imani Abad DO [address] [facility] [address] [place] [address] Consulting Physician Neurology 07/12/23 Operations And Maintenance Manager Relationship Specialty Start Date End Date Krupa Tran MD [address] [place] [address] PCP - General 07/04/19 Krupa Tran MD [address] [place] [address] PCP - MMO ACO PCP 09/03/23 Imani Abad DO [address] [facility] [address] [place] [address] Consulting Physician Neurology 07/12/23 Operations And Maintenance Manager Relationship Specialty Start Date End Date Krupa Tran MD [address] [address] PCP - General 07/04/19 Krupa Tran MD [address] [facility] [address] [place] [address] PCP - MMO ACO PCP 09/03/23 Imani Abad DO [address] [facility] [address] [place] [address] Consulting Physician Neurology 07/12/23 Source Comments (unrecognize d section and content) In the event this informatio n is protected by the Federal Confidentiality of Alcohol and Drug Abuse Patient Records regulations: The Federal rules restrict any use of the information to criminally investigate or prosecute any alcohol or drug abuse patient.[facility] the event this information is protected by the Federal Confidentiality of Alcohol and Drug Abuse Patient Records regulations: The Federal rules restrict any use of the information to criminally investigate or prosecute any alcohol or drug abuse patient.[facility] the event this information is protected by the Federal Confidentiality of Alcohol and Drug Abuse Patient Records regulations: The Federal rules restrict any use of the information to criminally investigate or prosecute any alcohol or drug abuse patient.[facility] the event this information is protected by the Federal Confidentiality of Alcohol and Drug Abuse Patient Records regulations: The Federal rules restrict any use of the information to criminally investigate or prosecute any alcohol or drug abuse patient.[facility] the event this information is protected by the Federal Confidentiality of Alcohol and Drug Abuse Patient Records regulations: The Federal rules restrict any use of the information to criminally investigate or prosecute any alcohol or drug abuse patient.[facility] the event this information is protected by the Federal Confidentiality of Alcohol and Drug Abuse Patient Records regulations: The Federal rules restrict any use of the information to criminally investigate or prosecute any alcohol or drug abuse patient.[facility] the event this information is protected by the Federal Confidentiality of Alcohol and Drug Abuse Patient Records regulations: The Federal rules restrict any use of the information to criminally investigate or prosecute any alcohol or drug abuse patient.[facility] the event this information is protected by the Federal Confidentiality of Alcohol and Drug Abuse Patient Records regulations: The Federal rules restrict any use of the information to criminally investigate or prosecute any alcohol or drug abuse patient.[facility] the event this information is protected by the Federal Confidentiality of Alcohol and Drug Abuse Patient Records regulations: The Federal rules restrict any use of the information to criminally investigate or prosecute any alcohol or drug abuse patient.[facility] the event this information is protected by the Federal Confidentiality of Alcohol and Drug Abuse Patient Records regulations: The Federal rules restrict any use of the information to criminally investigate or prosecute any alcohol or drug abuse patient.[facility] the event this information is protected by the Federal Confidentiality of Alcohol and Drug Abuse Patient Records regulations: The Federal rules restrict any use of the information to criminally investigate or prosecute any alcohol or drug abuse patient.[facility] the event this information is protected by the Federal Confidentiality of Alcohol and Drug Abuse Patient Records regulations: The Federal rules restrict any use of the information to criminally investigate or prosecute any alcohol or drug abuse patient.[facility] the event this information is protected by the Federal Confidentiality of Alcohol and Drug Abuse Patient Records regulations: The Federal rules restrict any use of the information to criminally investigate or prosecute any alcohol or drug abuse patient.[facility] the event this information is protected by the Federal Confidentiality of Alcohol and Drug Abuse Patient Records regulations: The Federal rules restrict any use of the information to criminally investigate or prosecute any alcohol or drug abuse patient.[facility] FOR RECORDS PERTAINING TO PATIENTS WHO ARE OR HAVE BEEN ENROLLED IN A CHEMICAL DEPENDENCY/SUBSTANCEABUSE PROGRAM, SOME INFORMATION MAY BE OMITTED. This clinical summary was aggregated from multiple sources. Caution should be exercised in using it in the provision of clinical care. This summary normalizes information from multiple sources, and as a consequence, information in this document may materially change the coding, format and clinical context of patient data. In addition, data may be omitted in some cases. CLINICAL DECISIONS SHOULD BE BASED ON THE PRIMARY CLINICAL RECORDS. [facility]. provides no warranty or guarantee of the accuracy or completeness of information in this document.
[2024-06-24] MEDS: miSOPROStol 25 MCG TABLET VAGINAL (08:10)
[2024-06-24 08:20] LABS: Hematocrit 33.1 % (37-47); Hemoglobin 10.6 g/dL (12.0-15.0); White Blood Count 9.5 K/mm3 (4.4-11.0)
[2024-06-24 08:21] LABS: Absolute Lymphocyte Count 2.01 X10^3/uL (0.83-4.51); Absolute Neutrophil Count 6.8 X10^3/uL (2.0-7.7); Basophil# 0.06 X10^3/uL; Basophil% 0.6 % (0-1); Eosinophil# 0.05 X10^3/uL; Eosinophils% 0.5 % (0-5); Lymphocyte # 2.01 X10^3/ul (0.83-4.51); Lymphocyte % 21.2 % (19-41); Mean Corpuscular Hgb 26.5 pg (27.0-32.0); Mean Corpuscular Volume 82.8 fL (81-99); Mean Platelet Vol. 9.2 fl (6.2-12.0); Monocyte# 0.53 X10^3/uL; Monocyte% 5.6 % (0-10); NRBC Flagged by Analyzer 0 % (0-5); Neutrophil # 6.76 X10^3/uL (2.7-7.7); Neutrophil % 71.6 % (47-70); Platelet Count 290 K/mm3 (150-450); RBC Distribution Width CV 13.3 % (11.6-14.6)
[2024-06-24 08:57] LABS: Syphilis Antibodies Non-reactive
--- NOTE | 2024-06-24 15:03 | PCM.HP.OB ---
HPI - General General Date of Admission: 06/24/24 Date of Service: 06/24/24 HPI Narrative CHERRY MOON, is a 24 F who presents for induction. Maternal Data Information ROSA Calculator Estimated Delivery Date Method Current WG Current Estimate 06/23/24 Manual 40w 1d Final ROSA: 06/23/24 [facility] Medical History (Updated 06/24/24 @ 17:[address] Aster Ortega MD) Stress incontinence Breast mass, right Anemia POTS (postural orthostatic tachycardia syndrome) Home Medications ?Medication ?Instructions ?Recorded ?Last Taken ?Type ferrous sulfate 325 mg (65 mg 325 mg PO QODAY anemia 06/24/24 Unknown History iron) tablet (Feosol) fluticasone propionate 50 2 spray intranasal DAILY ear issues 06/24/24 Unknown History mcg/actuation nasal spray,suspension (24 Hour Allergy Relief) vit no.95-ferrous 1 tab PO DAILY 06/24/24 Unknown History fumarate 28 mg-folic acid 800 mcg tablet () Allergy/AdvReac Type Severity Reaction Status Date / Time pineapple Allergy Severe Anaphylaxis Verified 06/24/24 07:32 Surgical History S/P osteotomy of left tibial tuberosity [place] teeth removed Social History Smoking Status: Never smoker History Elective abortions Hx Para 1 Spontaneous abortions Hx # Term Pregnancies Ectopic pregnancies Hx # Pregnancies Multiple births # of living children NST FHR Rate Baby A Baseline: 145 Variability:: Moderate Accelerations:: 15 x 15 Decelerations:: None Uterine Activity:: Q4 min Vital Signs Vital Signs Vital Signs: 06/24/24 08:00 06/24/24 08:00 06/24/24 08:00 Temperature Temperature Source Temporal Pulse Rate 98 Respiratory Rate 16 Blood Pressure BP Systolic BP Diastolic Pulse Ox 06/24/24 08:00 06/24/24 08:00 06/24/24 08:09 Temperature 97.5 F L Temperature Source Pulse Rate Respiratory Rate Blood Pressure 109/71 BP Systolic 109 BP Diastolic 71 Pulse Ox 97 06/24/24 08:09 06/24/24 10:46 06/24/24 10:46 Temperature Temperature Source Pulse Rate 82 83 Respiratory Rate Blood Pressure 92/54 L BP Systolic 92 BP Diastolic 54 Pulse Ox 06/24/24 10:46 06/24/24 10:46 06/24/24 10:46 Temperature 97.9 F Temperature Source Temporal Pulse Rate Respiratory Rate Blood Pressure BP Systolic BP Diastolic Pulse Ox 95 06/24/24 10:46 06/24/24 10:46 06/24/24 10:46 Temperature 97.9 F Temperature Source Pulse Rate Respiratory Rate 16 Blood Pressure BP Systolic BP Diastolic Pulse Ox 95 06/24/24 13:42 06/24/24 13:42 06/24/24 13:42 Temperature Temperature Source Temporal Pulse Rate 76 Respiratory Rate Blood Pressure 110/68 BP Systolic 110 BP Diastolic 68 Pulse Ox 06/24/24 13:42 06/24/24 13:42 06/24/24 13:42 Temperature 97.0 F L Temperature Source Pulse Rate Respiratory Rate 16 Blood Pressure BP Systolic BP Diastolic Pulse Ox 98 Weight Weight: 239 lb 3.225 oz Body Mass Index (BMI) 37.4 Physical Exam Const alert, oriented x3 and no apparent distress Chest inspection of chest normal GI soft to palpation, non-tender and non-distended Inspection: gravid external exam normal Narrative: cvx - 4/70/-2, AROM clear fluid Labs Labs Labs: Blood Type O POSITIVE Antibody Screen NEGATIVE Hct 33.1 % (37-47) L Hgb 10.6 g/dL (12.0-15.0) L Syphilis Total Ab Non-reactive Assessment & Plan (1) 40 weeks gestation of : COMMENT: 24yo @ 40&1 PLAN: Plan Admit to L&D. Induction - patient counseled on R/B/A. She is s/p 1 dose cytotec. AROM performed. She agrees to pitocin 2 hours after AROM if needed. GBS negative. EFW - less than 4500g & patient with adequate pelvis. Pain - declines epidural at this time.
[2024-06-24] MEDS: Lactated Ringers 1,000 ML 50 ML IV (17:40)
[2024-06-24] MEDS: Oxytocin 15 Units/NS 250ml 15 UNITS/250 ML IV.SOLN 2 UNITS IV (17:40)
--- NOTE | 2024-06-24 20:53 | EX.PCM.OBVAG ---
Maternal Data Information ROSA Calculator Estimated Delivery Date Method Current WG Current Estimate 06/23/24 Manual 40w 2d Vaginal Delivery Maternal Presentation Maternal Presentation: Medically Indicated Induction Type of Induction: Pitocin Vaginal Delivery Information Procedure Performed: Spontaneous Vaginal Delivery Surgeon/Practitioner: Aster Ortega Date of Procedure: 06/24/24 Pre-Procedure Diagnosis: Maternal obesity Post-Procedure Diagnosis: Same Type of anesthesia: Local with 1% Lidocaine Findings Description of procedure: Patient prepped and draped when C/C/+2. She pushed well to deliver the head. head gently guided to allow delivery of anterior and posterior shoulders. No excess traction placed on head. Body delivered and infant placed on maternal abdomen. 3VC clamped and cut in delayed fashion. Placenta delivered with gentle traction. Good uterine tone obtained. Presentation: GERRY Amniotic Membrane Rupture Type: Artificial Amniotic Fluid Description: Clear Placental Delivery Description: Expressed Placenta Disposition: [facility] Specimen collected: No Cord Vessel Description: 3 Vessels Cord Entanglement: None Infant A Gender: Female (1 minute): 8 (5 minute): 8 Delayed Cord Clamping: Yes Development Analyst air cargo ground crew supervisor: No Post Vaginal Deli Medications given after delivery: IV Pitocin Episiotomy Description: None Laceration: 1st degree (repaired with 3-0 vicryl) Complication Complications: No
[2024-06-24] MEDS: Oxytocin 15 Units/NS 250ml 15 UNITS/250 ML IV.SOLN 83 UNITS IV (21:05)
--- NOTE | 2024-06-24 21:15 | NURSING ---
Pt made rapid change. was 5cm at 1945 and debbie was born at 2031.
--- NOTE | 2024-06-24 21:25 | NURSING ---
Pt did make rapid change. Went from 5cm to complete in 35 minutes
[2024-06-24] MEDS: Acetaminophen 500 MG Tablet 1000 MG PO (21:58)
[2024-06-24] MEDS: Benzocaine/Lanolin/Aloe Vera 85 GM Spray 1 SPRAY TOPICAL (21:58)
[2024-06-24] MEDS: Lidocaine 1% (20 ml mdv) 20 ML Vial INFILT (22:38)
[2024-06-24 22:51] LABS: Hepatitis C Antibody Non-Reactive (Nonreactive)
[2024-06-25] VITALS (10 sets, daily range): BP systolic 92–111; BP diastolic 57–72; PULSE 64–86; RESP 14–16; TEMP 36.3–36.6; O2SAT 95–98
[2024-06-25] MEDS: Acetaminophen 500 MG Tablet 1000 MG PO (04:09)
--- NOTE | 2024-06-25 08:34 | PN.OBGYN_ITS ---
Subjective Subjective Doing well. Ambulating and voiding without difficulty. Mild lochia. Breast feeding. Objective Data Objective Data Vital Signs: Vital Signs Temp Pulse Resp BP Pulse Ox O2 Del Method 97.5 F L 64 16 107/72 97 Room Air 06/25/24 07:54 06/25/24 07:53 06/25/24 07:53 06/25/24 07:53 06/25/24 07:53 06/25/24 07:53 Oxygen Delivery Method Room Air Weight: 108.5 kg Body Mass Index (BMI) 37.4 Intake & Output: Intake and Output for Last 24 Hours 06/23/24 06/24/24 06/25/24 23:59 23:59 23:59 Intake Total 323.37 / 323.37 250 / 250 Output Total 900 / 900 Balance -576.63 / -576.63 250 / 250 Lab / Micro Data 06/24/24 07:35 Labs: Laboratory Results - last 24 hr 06/24/24 07:35: Syphilis Total Ab Non-reactive, Hepatitis C Antibody Non- Reactive, Blood Type O POSITIVE, Antibody Screen NEGATIVE ROS Constitutional Constitutional: Denies fatigue, fever(s) or malaise Eyes Eyes: Denies change in vision ENT HEENT: Denies dizziness or headache(s) Cardiovascular Cardiovascular: Denies chest pain, dyspnea or lightheadedness Respiratory/Chest Respiratory/Chest: Denies cough or dyspnea Gastrointestinal Gastrointestinal: Denies change in bowel habits Genitourinary Genitourinary: Denies burning urination or genital lesions Integumentary Integumentary: Denies rash Neurologic Neurologic: Denies confusion, dizziness, headache(s), numbness or weakness Physical Exam Const alert and no apparent distress Narrative: Fundus firm, below umbilicus. Assessment & Plan (1) (spontaneous vaginal delivery): PLAN: Plan Routine care
[2024-06-26 02:00] VITALS: BP 103/63; PULSE 67; RESP 17; TEMP 36.6; O2SAT 96
[2024-06-26 02:03] VITALS: BP 103/63; PULSE 67; TEMP 36.6
--- NOTE | 2024-06-26 07:00 | PCM.PN.OB ---
Subjective Subjective Doing well. Ambulating and voiding without difficulty. Mild lochia. Breast feeding. Objective Data Objective Data Vital Signs: Vital Signs Temp Pulse Resp BP Pulse Ox O2 Del Method 97.9 F 67 17 103/63 96 Room Air 06/26/24 02:03 06/26/24 02:03 06/26/24 02:00 06/26/24 02:03 06/26/24 02:00 06/26/24 02:00 Oxygen Delivery Method Room Air Weight: 108.5 kg Body Mass Index (BMI) 37.4 Intake & Output: Intake and Output for Last 24 Hours 06/24/24 06/25/24 06/26/24 23:59 23:59 23:59 Intake Total 323.37 / 323.37 250 / 250 Output Total 900 / 900 Balance -576.63 / -576.63 250 / 250 Lab / Micro Data 06/24/24 07:35 ROS Constitutional Constitutional: Denies fatigue, fever(s) or malaise Eyes Eyes: Denies change in vision ENT HEENT: Denies dizziness or headache(s) Cardiovascular Cardiovascular: Denies chest pain, dyspnea or lightheadedness Respiratory/Chest Respiratory/Chest: Denies cough or dyspnea Gastrointestinal Gastrointestinal: Denies change in bowel habits Genitourinary Genitourinary: Denies burning urination or genital lesions Integumentary Integumentary: Denies rash Neurologic Neurologic: Denies confusion, dizziness, headache(s), numbness or weakness Physical Exam Const alert and no apparent distress Narrative: Fundus firm, below umbilicus. Assessment & Plan (1) (spontaneous vaginal delivery): PLAN: Plan Discharge home
--- NOTE | 2024-06-26 07:05 | PCM.DC.SUM ---
Providers Date of Admission: 06/24/24 Date of Discharge: 06/26/24 Primary Care Physician: Dr. Selwyn Tran MD Reason For Visit: VAG Diagnosis Discharge Diagnosis (1) (spontaneous vaginal delivery): Status: Acute Code(s): O80 - Encounter for full-term uncomplicated delivery Plan Discharge home Medications at Discharge Home Medications ferrous sulfate 325 mg (65 mg iron) tablet (Feosol) 325 mg PO QODAY anemia 06/24/24 fluticasone propionate 50 mcg/actuation nasal spray,suspension (24 Hour Allergy Relief) 2 spray intranasal DAILY ear issues 06/24/24 vit no.95-ferrous fumarate 28 mg-folic acid 800 mcg tablet () 1 tab PO DAILY 06/24/24 Hospital Course Operations None Procedures None Summary of Care Provided Minutes Spent on Discharge: 20 Hospital Course: Normla without complication. Breast feeding on discharge Physical Exam Const alert and no apparent distress Narrative: Fundus firm, below umbilicus. Weight / BMI Weight Weight: 108.5 kg Body Mass Index (BMI) 37.4 ABG / Lab / Microbiology Data 06/24/24 07:35 D/C Instructions May resume sexual activity in: 6 weeks Please Follow Up With: Annamarie Qiu MD When: Follow up with our office in 1-2 and 6 weeks or as needed. [phone] Meaningful Use Info Meaningful Use Meaningful Use Diagnoses (Choose all that apply): None applicable Ischemic Stroke Statin Dosing Therapy Reference: STATIN DOSE THERAPY REFERENCE: * Patients > 75 years receive moderate or high dose statin therapy. * Patients 75 years or YOUNGER should receive HIGH intensity statin dose unless contraindicated. You will be required to document reason for non-treatment if statin daily dose does not meet guidelines. HIGH DOSE STATIN THERAPY DAILY Atorvastatin > than or = to 40 mg Rosuvastatin > than or = to 20 mg Amlodipine + Atorvastatin > than or = to 2.5/40 mg Ezetimibe + Simvastatin 10/80 mg Simvastatin 80mg Discharge Plan Admission Admit Date/Time: 06/24/24 07:00 Primary Reason for Your Visit: labor Attending Provider: Aster Ortega Primary Care Provider: Selwyn Tran Discharge Orders/Prescriptions Prescriptions: Continued PNV cmb#95-ferrous fumarate-FA [] 28 mg iron- 800 mcg tablet 1 tab PO DAILY ferrous sulfate [Feosol] 325 mg (65 mg iron) tablet 325 mg PO QODAY fluticasone propionate [24 Hour Allergy Relief] 50 mcg/actuation spray,suspension 2 spray intranasal DAILY Rx Instructions: administer into each nostril Referrals / Follow Up: Selwyn Tran MD [Primary Care Provider] - Disposition Disposition (needs filled in before D/C Order can be placed): Home, Self Care
[2024-06-26 08:20] VITALS: BP 108/71; PULSE 73; PULSE 74; RESP 16; TEMP 36.5; O2SAT 97
[2024-06-26] MEDS: MEASLES,MUMPS,RUBELLA VACC/PF 0.5 ML SC (09:37)
[2024-06-26 10:24] VITALS: BP 108/71; PULSE 74; RESP 16; TEMP 36.5; O2SAT 97
== END 2024-06-26 10:45 | disposition home or self-care (01) | DRG 807 ==
PROVIDERS: Admitting Provider Obstetrics & Gynecology; PCP Family Medicine; Referring Provider Obstetrics & Gynecology; Visit Provider Obstetrics & Gynecology
DX: O99.214 Obesity complicating childbirth (principal); Z37.0 Single live birth; O99.02 Anemia complicating childbirth; O70.0 First degree perineal laceration during delivery; Z3A.40 40 weeks gestation of pregnancy
CPT/HCPCS: 59025; 59050; 85025; 86780; 86803; 86850; 86900; 86901; 99221; J7120; G0378